=== PATIENT | male | born 1945 | race Caucasian/White ===

== ENCOUNTER 2022-08-10 06:19 | Outpatient (CLI) | payer MEDICARE, SELFPAY | END 2022-08-10 06:20 | disposition home or self-care (01) | PROVIDERS: PCP Family Medicine; Visit Provider Internal Medicine | DX: Z12.11 Encounter for screening for malignant neoplasm of colon (principal); K63.5 Polyp of colon; K57.30 Diverticulosis of large intestine without perforation or abscess without bleeding; Z86.010 Personal history of colon polyps | CPT/HCPCS: 45380; 88305; J2250; J3010 ==

== ENCOUNTER 2022-12-07 08:50 | Outpatient (CLI) | payer MEDICARE, SELFPAY | END 2022-12-07 08:51 | disposition home or self-care (01) | LOC: LAB 08:51 | PROVIDERS: PCP Family Medicine; Visit Provider Orthopaedic Surgery | DX: Z01.818 Encounter for other preprocedural examination (principal) | CPT/HCPCS: 36415; 86850; 86900; 86901 ==

== ENCOUNTER 2022-12-09 06:55 | Day surgery (SDC) | payer MEDICARE, SELFPAY ==
[2022-12-09] VITALS (24 sets, daily range): BP systolic 95–174; BP diastolic 62–91; PULSE 50–89; RESP 14–18; TEMP 35.5–37; O2SAT 91–100; BMI 26.9
[2022-12-09] MEDS: ACETAMINOPHEN 500 MG TABLET 1000 MG PO ×3 (07:32→20:49)
[2022-12-09] MEDS: OXYCODONE (CR) 10 MG TAB.ER.12H PO (07:32)
[2022-12-09] MEDS: CELECOXIB 200 MG CAPSULE PO (07:32)
[2022-12-09] MEDS: LACTATED RINGERS 1000 ML 1,000 ML 100 ML IV ×2 (07:50→10:13)
[2022-12-09] MEDS: SODIUM CHLORIDE 0.9 % (FLUSH) 10 ML SYRINGE IVF (07:55)
--- NOTE | 2022-12-09 08:15 | CRLHL7_ITS ---
For Patients: As a result of the Cures Act, medical imaging exams and procedure reports are released immediately into your electronic medical record. You may view this report before your referring provider. If you have questions, please contact your health care provider. Indication: Hip replacement surgery Technique: AP hip fluoroscopic images. Fluoroscopy time 61.5 seconds. Findings/Impression: Hardware from a left total hip arthroplasty is in satisfactory position. Dictated by Issac Hooper MD @ 12/09/2022 10:47:16 AM (Electronically Signed)
--- NOTE | 2022-12-09 08:27 | SUR.PREOP ---
TIME?OUT:?0828 PT/RN/MDA?VERIFICATION?OF?SURGICAL?SITE,?PROCEDURE,?AND?CONSENT OBTAINED?PRIOR?TO?INVASIVE?PROCEDURE.
[2022-12-09] MEDS: fentaNYL 100 MCG/2 ML inj IVP (08:32)
[2022-12-09] MEDS: MIDAZOLAM HCL 1 MG/ML inj IVP (08:32)
[2022-12-09] MEDS: TRANEXAMIC ACID 100 MG/ML INJ 1000 MG IV (08:55)
[2022-12-09] MEDS: CEFAZOLIN 2 GM INJ IVP (08:55)
--- NOTE | 2022-12-09 10:11 | P.NB_ITS ---
Nerve Block Nerve Block Time Seen by Provider: 08:15 Date Seen: 12/09/22 Type of block requested by surgeon for post-operative analgesia: AMADO/LFCN Side: left Time out performed: Yes Verification of patient name: Yes Verification of date of : Yes Site marking: site marked Name of person performing procedure: Delvis Dye Continuous monitoring Was continuous monitoring of O2 sat, B/P, cardiac rehabilitation program director, recorded every 15 minutes?: Yes Procedure Checklist: sterile prep, needles and gloves Ultrasound guided. Images saved: Yes Medications given in 5ml increments after negative aspiration: Ropivicaine %: 0.5 mL: 25 Needle gauge: 21 Decadron (mg): 10 Precedex (mcg): 25 Patient tolerated procedure well: Yes Additional comments: Injected in 5ml increments after negative aspiration. Block Charges Block Charge (with Pro Fee): Other Periph Nerve Block Use of Ultrasound Machine for Block: Yes- US Guidance/pain block
--- NOTE | 2022-12-09 10:35 | CRLHL7_ITS ---
For Patients: As a result of the Cures Act, medical imaging exams and procedure reports are released immediately into your electronic medical record. You may view this report before your referring provider. If you have questions, please contact your health care provider. Indication: Postop Technique: AP hip centered pelvis and lateral view left hip Findings/Impression: Hardware from a left total hip arthroplasty is in satisfactory position. Bone alignment is normal. No sign of acute fracture. Postop changes are within normal limits. Dictated by Issac Hooper MD @ 12/09/2022 11:58:18 AM (Electronically Signed)
--- NOTE | 2022-12-09 10:39 | P.ORPRC_ITS ---
Procedure Note Date of procedure: 12/09/22 Procedure: PREOPERATIVE DIAGNOSIS: Left hip osteoarthritis POSTOPERATIVE DIAGNOSIS: Left hip osteoarthritis NAME OF OPERATION: Left total hip arthroplasty SURGEON: Dann Ko MD DESKTOP TECHNICIAN: Marie Kelly PA-C, Ana Menendez PA-C IMPLANTS: 1. [employer] [place] # 54 sector ingrowth cup 2. 36 x 54 +4 neutral polyethylene 3. Actis # 6 standard collared ingrowth stem 4. 36 + 1.5 ceramic femoral head ANESTHESIA: General ESTIMATED BLOOD LOSS: 50 cc COMPLICATIONS: None SPECIMENS: None DRAINS: None PREOPERATIVE ANTIBIOTICS: Ancef 2 grams INDICATIONS: The patient is a 77-year-old with a longstanding history of severe, unrelenting left hip pain secondary to end-stage left hip osteoarthritis. Despite appropriate nonoperative management, including activity modification, use of an assist device, anti-inflammatories, [id number] pain medication, physical therapy and injections, they continue to have pain and disability. Operative intervention was offered. The risks, benefits and expected outcomes were discussed in detail. These included but were not limited to: Infection, bleeding, injury to blood vessel or nerve, venous thromboembolism. All questions were answered to their satisfaction. Use of an material assistant was necessary throughout the case for patient positioning and safety, soft tissue retraction and closure. PROCEDURE: The patient was placed supine on the [place] table. General anesthesia was administered. The material assistant made sure the patient was properly positioned. The left hip was prepped and draped in the usual sterile fashion. The image intensifier was brought in for a perfect AP pelvis and a perfect double tear drop AP view of each hip which were used for intraoperative templating with our fluoroscopic guide. An oblique incision was made 3 cm distal and 3 cm lateral to the anterior superi or iliac spine. The material assistant retracted the soft tissues to protect them. Subcutaneous dissection was taken with electrocautery to the superficial fascia. The fascia was divided in line with the incision. Blunt dissection was carried medially to the tensor fascia chapo and sartorius interval. Deep dissection was carried with electrocautery. The circumflex vessels were cauterized and divided. The capsule was exposed and then divided in a T-fashion, tagged with #1 Ethibond sutures. Retractors were placed in the joint, held by the material assistant. The corkscrew was placed in the femoral head. The neck cut was made in the subcapital region. We made a second neck cut more distal. The napkin ring of bone was removed. The femoral head was removed intact. Acetabular retractors were placed, held by the material assistant. The labrum was sharply debrided. The capsule was released. The 43 mm reamer was used to the true medial wall. We then enlarged in 2 mm increments using the image intensifier for our reamer placement. We impacted the cup which had excellent purchase. We placed the polyethylene. Attention was then turned to the proximal femur. The limb was placed in 140 degrees of external rotation, maximum extension and adduction. A significant amount of time was spent releasing the capsule to allow us to deliver the femur into the wound and complete the femoral side safely. Retractors were held by the material assistant throughout the femoral preparation. The box gluer and canal finder were used. Broaches were used to a stable size. The calcar reamer was used. Trial components were placed. The hip was reduced and was found to be stable with appropriate soft tissue tension. Length and offset had been nicely restored using the image intensifier and our fluoroscopic guide. Trial components were removed. The stem was impacted. We placed the femoral head. Again, the hip was reduced and was found to be stable with appropriate soft tissue tension. Length and offset had been nicely restored. The material assistant did a three minute dilute Betadine solution soak. The material assistant irrigated the wound with 3 liters of normal saline via pulse lavage. The material assistant repaired the anterior capsule with a #1 Vicryl and our previously placed Ethibond sutures. The material assistant closed the fascia over the tensor fascia chapo with a #1 PDO Stratafix, subcutaneous tissues with 2-0 Vicryl, skin with a running 3-0 Stratafix and glue. A dry dressing was applied by the material assistant. Sponge and needle counts were correct x 2. The patient tolerated the procedure well; there were no apparent complications. They were awakened and extubated in the operating room, sent to the Post-Anesthesia Care Unit in satisfactory condition. PLAN: 1. The patient will be mobilized with physical therapy, weight-bearing as tolerates 2. Xarelto x 5 days then aspirin x 30 days will be used for DVT prophylaxis 3. The patient will be discharged once medically appropriate
--- NOTE | 2022-12-09 11:30 | W.ANESCHARGE ---
Anesthesia Charges Start Date/Time Anesthesia Start Date: 12/09/22 Anesthesia Start Time: 08:46 Stop Date/Time Anesthesia Stop Date: 12/09/22 Anesthesia Stop Time: 11:30
[2022-12-09] MEDS: HYDROmorphone 0.5 mg/0.5 ml inj IVP (12:49)
[2022-12-09] MEDS: CEFAZOLIN 2 GM in 0.9 % SODIUM CHLORIDE Mini-bag 100 ML IVPB ×2 (14:51→22:41)
[2022-12-09] MEDS: OXYCODONE 5 MG TABLET PO ×2 (14:52→20:49)
[2022-12-09] MEDS: LACTATED RINGERS 1000 ML 1,000 ML 75 ML IV (16:00)
--- NOTE | 2022-12-09 16:07 | PM.IMPN1 ---
Progress Note: A&P Assessment and plan (1) Osteoarthritis of left hip: Status: Acute Assessment and Plan: 1. s/p left left MELODY; pain control; diet; dvt ppx per surgery 2. Hx of htn; hold norvasc and hctz for today 3. Hx of hld; continue statin Plan 1. s/p lefT MELODY Subjective Date Seen: 12/09/22 Interval history: NAME OF OPERATION: Left total hip arthroplasty ANESTHESIA: General ESTIMATED BLOOD LOSS: 50 cc the patient is stable following surgery having some urinary retention denies chest pain and sob denies nausea and vomiting tolerating diet post operative pain controlled Exam Narrative: Exam Narrative: Gen: no acute distress HEENT: NCAT EOMI mmm Neck: Supple CV: RRR normal s1 s2 Lungs: CTAB Abd: Soft,nt, nd Neuro: Alert, oriented, CN grossly intact; nonfocal screening?exam Psych: appropriate affect MSK: age appropriate muscle mass Skin; Warm, dry no rash on face Const: Vital Signs, click to edit/add: Vital Signs - 24 hr 12/09/22 07:36 12/09/22 08:28 12/09/22 08:35 Temperature 98.6 F Pulse Rate 62 61 59 L Pulse Rate [Pulse Oximeter] Respiratory Rate 16 16 16 Blood Pressure 162/91 H 174/91 H 135/74 Blood Pressure [Ri ght Arm] Pulse Oximetry 98 98 99 Oxygen Delivery Me thod Nasal Cannula Nasal Cannula Oxygen Flow Rate 2 2 12/09/22 08:40 12/09/22 11:30 12/09/22 11:35 Temperature 97.2 F L Pulse Rate 57 L 60 63 Pulse Rate [Pulse Oximeter] Respiratory Rate 16 14 14 Blood Pressure 118/77 126/69 126/77 Blood Pressure [Ri ght Arm] Pulse Oximetry 99 100 100 Oxygen Delivery Me thod Nasal Cannula OxyMask OxyMask Oxygen Flow Rate 2 10 10 12/09/22 11:40 12/09/22 11:45 12/09/22 11:50 Temperature Pulse Rate 66 59 L 60 Pulse Rate [Pulse Oximeter] Respiratory Rate 14 14 14 Blood Pressure 136/83 130/74 123/72 Blood Pressure [Ri ght Arm] Pulse Oximetry 100 100 97 Oxygen Delivery Me thod OxyMask OxyMask Room Air Oxygen Flow Rate 10 10 12/09/22 11:55 12/09/22 12:00 12/09/22 12:05 Temperature 97.1 F L Pulse Rate 62 50 L 59 L Pulse Rate [Pulse Oximeter] Respiratory Rate 14 14 14 Blood Pressure 124/73 121/71 122/72 Blood Pressure [Ri ght Arm] Pulse Oximetry 95 94 95 Oxygen Delivery Me thod Room Air Room Air Room Air Oxygen Flow Rate 12/09/22 12:09 12/09/22 12:15 Temperature 96 F L 96.1 F L Pulse Rate 56 L Pulse Rate [Pulse Oximeter] 56 L Respiratory Rate 14 14 Blood Pressure Blood Pressure [Ri ght Arm] 124/85 131/75 Pulse Oximetry 98 Oxygen Delivery Me thod Room Air Room Air Oxygen Flow Rate
--- NOTE | 2022-12-09 17:06 | PC.NURSE ---
Addendum entered by Patricia Sandhu RN 12/09/22 18:34: Patient has only voided x1 50cc since surgery, bladder scan done showed 152cc, PRN bolus started now. Original Note: Shift Summary: Patient pleasant and cooperative. Up with one assist, walker and gait belt. Pain managed with PRN oxycodone. Vitals stable and WNL. Has yet to void, continues to have LR @ 75cc/hr. Tolerating regular diet, denies nausea. Dressing over left hip C/D/I. Lung sounds clear.
[2022-12-09] MEDS: 0.9 % SODIUM CHLORIDE 500 ML IV (18:30)
[2022-12-09] MEDS: SENNOSIDES 1 TAB TABLET 2 TAB PO (20:49)
--- NOTE | 2022-12-09 22:18 | PC.NURSE ---
End of shift nursing note, care provided from [id number]: Pt alert and oriented, pleasant and cooperative. Vitals stable, afebrile. Pt pain 0-2/10 this shift, PRN Oxycodone 5mg admin and scheduled Tylenol. Pt up to void a couple times, 350ml output. Pt ambulated in hallway w/ Ax1 w/ walker and gaitbelt. CMS intact. New ice pack applied at bedtime. Pt saline locked after able to void, tolerating PO intake. Pt using IS. Pt has call light within reach and able to use appropriately.
[2022-12-10] MEDS: ACETAMINOPHEN 500 MG TABLET 1000 MG PO ×2 (01:39→08:38)
[2022-12-10 03:20] VITALS: BP 138/76; PULSE 89; RESP 18; TEMP 36.8; O2SAT 96
[2022-12-10 06:50] LABS: Hematocrit 38.9 % (37.0-53.0); Immature Granulocytes Pct Auto 0.3 %; Lymphocytes Percent Auto 3.2 % (20-44); Mean Corpuscular HGB Conc 33 gm/dL (32-36); Mean Corpuscular Hemoglobin 29 pg (26-34); Mean Corpuscular Volume 86 fL (80-100); Monocytes Percent Auto 7.1 % (0.0-11.0); Neutrophils Percent Auto 89.4 % (42.0-72.0); Platelet Count* 226 K/uL (140-440); RDW Coefficient of Variation % 12.3 % (11.5-15.5); Red Blood Count 4.55 m/uL (4.30-5.90); White Blood Count* 16.13 K/uL (4.50-11.00)
[2022-12-10 06:54] LABS: Slide Review Reflex No
--- NOTE | 2022-12-10 07:03 | PC.NURSE ---
Pt alert and oriented x3. Afebrile. Pt reports 2-3/10 pain in left?hip, pain managed with?scheduled medications. Pt denies chest pain, SOB, and N/V. Pt was up to the bathroom x 7 voiding around 100 ml each time, bladder scan was done pt had 408 ml and got up and had another 250 ml out. Pt is up SBA with walker and gait belt. Pt is tolerating a regular diet and saline locked. Pt slept intermittently throughout most of night.?
[2022-12-10 07:05] LABS: Potassium* 3.8 mmol/L (3.6-5.1); Sodium* 134 mmol/L (135-149)
[2022-12-10 07:08] LABS: Blood Urea Nitrogen* 25 mg/dL (7-30); Creatinine* 1.1 mg/dL (0.5-1.5); Est. Creatinine Clearance* 58.02; Estimated Glomerular Filt Rate 70 ml/min
[2022-12-10 08:13] VITALS: BP 133/83; PULSE 95; RESP 18; TEMP 36.8; O2SAT 97
[2022-12-10] MEDS: SENNOSIDES 1 TAB TABLET 2 TAB PO (08:37)
[2022-12-10] MEDS: RIVAROXABAN 10 MG TABLET PO (08:38)
[2022-12-10] MEDS: OXYCODONE 5 MG TABLET PO (08:45)
--- NOTE | 2022-12-10 10:23 | PC.SOCIAL ---
Discharge : Met with patient, River and , Elisa. River will return home with Elisa assisting with help. They also have a daughter who is willing to help if needed. Couple has contact information for social work and will call for any additional questions or needs.
--- NOTE | 2022-12-10 10:26 | P.ORPN_ITS ---
Subjective Subjective Time Seen by Provider: 08:25 Date Seen: 12/10/22 Principal diagnosis: Day 1 s/p left MELODY Interval history: Brandon is doing well and resting comfortably in his recliner, accompanied by his Elisa. Denies pain currently. Reports he has a high pain tolerance. Denies: fever, chills, chest pain, SOB. Denies bowel movement since surgery and reports no flatulence yet. Patient had difficulty urinating overnight, which improved over the morning, but continues to struggle with frequent urination and incomplete voiding. He denies having these problems prior to surgery. Brandon also asked if he may take Viagra in addition to his postop discharge medications. Patient picked up his discharge medications last week. He is unable to swallow tablets/capsules. Medications were sent in liquid form. Ortho Exam Narrative Exam Narrative: Incision/Dressing: Dressing appears clean and dry. No drainage present. Mepilex intact. Left MELODY appears moderately swollen but supple with no obvious erythema, fluctuance or excessive warmth. No ecchymosis or erythematous streaking. Warmth around the wound is appropriate. Ice is being utilized as needed. CMS: Intact distally with 2+ Dorsalis pedis and Posterior Tibial pulses. 5/5 motor strength dorsal and plantar flexion. Confirmed sensation distally. Intact straight leg raise. Calf: Bilateral calves are supple, with no swelling, pain, tenderness, erythema, discoloration or coolness to the touch. Constitutional: Patient is alert and oriented x3. Patient is in no acute distress and converses without labored breathing. Patient is able to make decisions and demonstrates good insight. Patient is pleasant and cooperative. Affect is full range and appropriate for the circumstances. Const Vital Signs, click to edit/add: Vital Signs - 24 hr 12/09/22 11:30 12/09/22 11:35 12/09/22 11:40 Temperature 97.2 F L Pulse Rate 60 63 66 Pulse Rate [Pulse Oximeter] Respiratory Rate 14 14 14 Blood Pressure 126/69 126/77 136/83 Blood Pressure [Left Arm] Blood Pressure [Right Arm] Pulse Oximetry 100 100 100 Oxygen Delivery Method OxyMask OxyMask OxyMask Oxygen Flow Rate 10 10 10 12/09/22 11:45 12/09/22 11:50 12/09/22 11:55 Temperature Pulse Rate 59 L 60 62 Pulse Rate [Pulse Oximeter] Respiratory Rate 14 14 14 Blood Pressure 130/74 123/72 124/73 Blood Pressure [Left Arm] Blood Pressure [Right Arm] Pulse Oximetry 100 97 95 Oxygen Delivery Method OxyMask Room Air Room Air Oxygen Flow Rate 10 12/09/22 12:00 12/09/22 12:05 12/09/22 12:09 Temperature 97.1 F L 96 F L Pulse Rate 50 L 59 L 56 L Pulse Rate [Pulse Oximeter] Respiratory Rate 14 14 14 Blood Pressure 121/71 122/72 Blood Pressure [Left Arm] Blood Pressure [Right Arm] 124/85 Pulse Oximetry 94 95 Oxygen Delivery Method Room Air Room Air Room Air Oxygen Flow Rate 12/09/22 12:15 12/09/22 12:30 12/09/22 12:45 Temperature 96.1 F L 96.1 F L 96.2 F L Pulse Rate Pulse Rate [Pulse Oximeter] 56 L 55 L 55 L Respiratory Rate 14 14 16 Blood Pressure Blood Pressure [Left Arm] Blood Pressure [Right Arm] 131/75 131/73 122/76 Pulse Oximetry 98 96 98 Oxygen Delivery Method Room Air Room Air Room Air Oxygen Flow Rate 12/09/22 13:00 12/09/22 13:30 12/09/22 14:00 Temperature 96.2 F L 96.2 F L 97.2 F L Pulse Rate Pulse Rate [Pulse Oximeter] 55 L 50 L 62 Respiratory Rate 16 16 18 Blood Pressure Blood Pressure [Left Arm] Blood Pressure [Right Arm] 121/85 112/74 111/62 Pulse Oximetry 95 91 96 Oxygen Delivery Method Room Air Room Air Room Air Oxygen Flow Rate 12/09/22 15:00 12/09/22 16:00 12/09/22 17:00 Temperature 96.8 F L 96.8 F L 97.5 F L Pulse Rate Pulse Rate [Pulse Oximeter] 52 L 56 L 64 Respiratory Rate 18 18 18 Blood Pressure Blood Pressure [Left Arm] Blood Pressure [Right Arm] 95/73 123/81 132/75 Pulse Oximetry 97 92 96 Oxygen Delivery Method Room Air Room Air Room Air Oxygen Flow Rate 12/09/22 19:00 12/09/22 23:55 12/09/22 23:55 Temperature 98.4 F 98.5 F Pulse Rate Pulse Rate [Pulse Oximeter] 87 89 89 Respiratory Rate 16 16 16 Blood Pressure Blood Pressure [Left Arm] 131/80 Blood Pressure [Right Arm] 157/77 H Pulse Oximetry 96 99 Oxygen Delivery Method Room Air Room Air Oxygen Flow Rate 12/10/22 03:20 12/10/22 08:13 Temperature 98.2 F 98.3 F Pulse Rate Pulse Rate [Pulse Oximeter] 89 95 Respiratory Rate 18 18 Blood Pressure Blood Pressure [Left Arm] 133/83 Blood Pressure [Right Arm] 138/76 Pulse Oximetry 96 97 Oxygen Delivery Method Room Air Room Air Oxygen Flow Rate Documenting provider has reviewed patient's vital signs: yes Assessment and Plan Assessment and plan (1) Osteoarthritis of left hip: Problem details: day 1 s/p left MELODY Status: Acute Assessment and Plan: - Complete 23 hour perioperative antibiotics. - PT/OT consults for education and assistance. - Weight bear as tolerated with a walker for assistance. - Prescribed analgesics as needed. Patient is content with current narcotic m edications. Minimize narcotic pain medication use; wean off and discontinue as soon as possible. - DVT prophylaxis Xarelto x 5 days followed by aspirin 81 mg BID x 30 days. Also bilateral knee high Joseph stockings (x 1 month), frequent ambulation and ankle pumps when sedentary. - In regards to urinary frequency and incomplete voiding, I'd like Brandon to discuss this further with our Hospitalist. - Do not Viagra while taking Oxycodone. This combination may increase risk of hypotension. - Social consult for discharge planning. - Anticipate patient will be discharged to home this afternoon if the patient remains medically stable, pain is controlled and is safe with ambulation. - Return to clinic in 1 week for a wound check. Mepilex dressing will be removed at this appointment. Remove sooner if dressing becomes saturated. - Return to clinic in [address] Ko. - Phone Orthopedics with any questions or concerns. [phone]
--- NOTE | 2022-12-10 11:25 | P.DS_ITS ---
DS: Providers Provider Time Seen by Provider: 09:45 Date Seen: 12/10/22 Primary care physician: Issac Mcnally MD Consults: 12/09/22 12:21 Consult to Occupational Therapy [CONS] Routine Comment: Reason(s) for OT Consult:: ADLs Prior to Discharge Any Restrictions?:: No Restrictions Comment: Consult to Physical Therapy [CONS] Routine Comment: Ambulate in the sol today Reason(s) for PT Consult:: Evaluate and Treat Any Restrictions?:: No Restrictions Comment: Nursing Activity Consult to Physician [CONS] Routine Comment: Consulting Provider: Hospitalists Has provider been notified: No Consult to Health Care Technician [CONS] Routine Comment: Reason for Consult:: Discharge Planning Needs Attending Physician on discharge: Dann Ko MD Date of Discharge: 12/10/22 DS: Diagnosis Discharge Diagnosis (1) Osteoarthritis of left hip: Status: Acute Problem details: s/p left MELODY 12/09/22 (2) Urinary retention: Status: Acute (3) BPH associated with nocturia: Status: Suspected Problem details: - post op urinary retention - trial of flomax, but patient refuses to swallow pills (4) Hyperlipidemia: Status: Chronic (5) Hypertension: Status: Chronic DS: Summary Hospital Course Hospital Course: 77-year-old male who underwent an elective left total hip arthroplasty for severe osteoarthritis. Postoperative course is remarkable only for urinary retention. Patient does have a history of nocturia over the last few years. He denies any previous diagnosis of BPH. Straight cath produced 800 mL of urine. Shared decision making with the patient and his led to starting Flomax, however patient states that he is unable to take pills and there is no liquid formulation of Flomax, and patient refused to take/was unable to take Flomax pill. He is discharged home in stable condition. Time Spent with Patient Time attestation: Total time spent providing and/or coordinating discharge services: Exam Narrative: Exam Narrative: General: No acute distress. Awake, alert, oriented x3. No pallor. No jaundice. Oropharynx: Clear. Mucous membranes moist. Cardiovascular: Regular rate and rhythm. No murmurs, gallops, or rubs. Respiratory: Clear to auscultation bilaterally. No wheezes or crackles. Abdomen: Bowel sounds present. Soft, nondistended, nontender. Extremities: Left hip bandage is clean, dry, and intact. No pedal edema. Const: Vital Signs, click to edit/add: Vital Signs - 24 hr 12/09/22 11:30 12/09/22 11:35 12/09/22 11:40 Temperature 97.2 F L Pulse Rate 60 63 66 Pulse Rate [Pulse Oximeter] Respiratory Rate 14 14 14 Blood Pressure 126/69 126/77 136/83 Blood Pressure [Le ft Arm] Blood Pressure [Ri ght Arm] Pulse Oximetry 100 100 100 Oxygen Delivery Me thod OxyMask OxyMask OxyMask Oxygen Flow Rate 10 10 10 12/09/22 11:45 12/09/22 11:50 12/09/22 11:55 Temperature Pulse Rate 59 L 60 62 Pulse Rate [Pulse Oximeter] Respiratory Rate 14 14 14 Blood Pressure 130/74 123/72 124/73 Blood Pressure [Le ft Arm] Blood Pressure [Ri ght Arm] Pulse Oximetry 100 97 95 Oxygen Delivery Me thod OxyMask Room Air Room Air Oxygen Flow Rate 10 12/09/22 12:00 12/09/22 12:05 12/09/22 12:09 Temperature 97.1 F L 96 F L Pulse Rate 50 L 59 L 56 L Pulse Rate [Pulse Oximeter] Respiratory Rate 14 14 14 Blood Pressure 121/71 122/72 Blood Pressure [Le ft Arm] Blood Pressure [Ri ght Arm] 124/85 Pulse Oximetry 94 95 Oxygen Delivery Me thod Room Air Room Air Room Air Oxygen Flow Rate 12/09/22 12:15 12/09/22 12:30 12/09/22 12:45 Temperature 96.1 F L 96.1 F L 96.2 F L Pulse Rate Pulse Rate [Pulse Oximeter] 56 L 55 L 55 L Respiratory Rate 14 14 16 Blood Pressure Blood Pressure [Le ft Arm] Blood Pressure [Ri ght Arm] 131/75 131/73 122/76 Pulse Oximetry 98 96 98 Oxygen Delivery Me thod Room Air Room Air Room Air Oxygen Flow Rate 12/09/22 13:00 12/09/22 13:30 12/09/22 14:00 Temperature 96.2 F L 96.2 F L 97.2 F L Pulse Rate Pulse Rate [Pulse Oximeter] 55 L 50 L 62 Respiratory Rate 16 16 18 Blood Pressure Blood Pressure [Le ft Arm] Blood Pressure [Ri ght Arm] 121/85 112/74 111/62 Pulse Oximetry 95 91 96 Oxygen Delivery Me thod Room Air Room Air Room Air Oxygen Flow Rate 12/09/22 15:00 12/09/22 16:00 12/09/22 17:00 Temperature 96.8 F L 96.8 F L 97.5 F L Pulse Rate Pulse Rate [Pulse Oximeter] 52 L 56 L 64 Respiratory Rate 18 18 18 Blood Pressure Blood Pressure [Le ft Arm] Blood Pressure [Ri ght Arm] 95/73 123/81 132/75 Pulse Oximetry 97 92 96 Oxygen Delivery Me thod Room Air Room Air Room Air Oxygen Flow Rate 12/09/22 19:00 12/09/22 23:55 12/09/22 23:55 Temperature 98.4 F 98.5 F Pulse Rate Pulse Rate [Pulse Oximeter] 87 89 89 Respiratory Rate 16 16 16 Blood Pressure Blood Pressure [Le ft Arm] 131/80 Blood Pressure [Ri ght Arm] 157/77 H Pulse Oximetry 96 99 Oxygen Delivery Me thod Room Air Room Air Oxygen Flow Rate 12/10/22 03:20 12/10/22 08:13 Temperature 98.2 F 98.3 F Pulse Rate Pulse Rate [Pulse Oximeter] 89 95 Respiratory Rate 18 18 Blood Pressure Blood Pressure [Le ft Arm] 133/83 Blood Pressure [Ri ght Arm] 138/76 Pulse Oximetry 96 97 Oxygen Delivery Me thod Room Air Room Air Oxygen Flow Rate DS: Data Data Completed and Pending Completed studies during hospitalization: Ordering Physician: Dann Ko M.D. Date of Service: 12/09/22 Procedure(s): XR hip LT post op Accession Number(s): [id number] cc: Issac Mcnally M.D.; Dann Ko M.D.~ For Patients: As a result of the Century Cures Act, medical imaging exams and procedure reports are released immediately into your electronic medical record. You may view this report before your referring provider. If you have questions, please contact your health care provider. Indication: Postop Technique: AP hip centered pelvis and lateral view left hip Findings/Impression: Hardware from a left total hip arthroplasty is in satisfactory position. Bone alignment is normal. No sign of acute fracture. Postop changes are within normal limits. Dictated by Issac Hooper MD @ 12/09/2022 11:58:18 AM (Electronically Signed) Labs on day of discharge: Labs from last 24 hours 12/10/22 06:02 WBC 16.13 H RBC 4.55 Hgb 13.0 L Hct 38.9 MCV 86 MCH 29 MCHC 33 RDW Coeff of Lulu 12.3 Plt Count 226 Neut % (Auto) 89.4 H Lymph % (Auto) 3.2 L [place] % (Auto) 7.1 Eos % (Auto) 0.0 Baso % (Auto) 0.0 Neut # (Auto) 14.40 H Lymph # (Auto) 0.50 L [place] # (Auto) 1.10 H Eos # (Auto) 0.00 Baso # (Auto) 0.00 Abs Immat Gran (auto) 0.00 Imm/Tot Granulo (auto) 0.3 Sodium 134 L Potassium 3.8 BUN 25 Creatinine 1.1 Estimated Creat Clear 58.02 Estimated GFR 70 Discharge Plan Discharge Disposition: Home, Self-Care Discharging Surgeon: Dann Ko Follow-Up Appointment: One week Prescriptions: Continued simvastatin 20 mg tablet 20 mg PO DAILY hydrochlorothiazide 12.5 mg tablet 12.5 mg PO DAILY amlodipine 2.5 mg tablet 2.5 mg PO DAILY cholecalciferol (vitamin D3) [Vitamin D3] 50 mcg (2,000 unit) capsule 50 mcg PO DAILY clotrimazole [Antifungal (clotrimazole)] 1 % cream 1 applic topical BID sennosides [OneLax Senna] 8.8 mg/5 mL syrup 5 ml PO BID PRN (Reason: constipation) Qty: 236 0RF oxycodone 5 mg/5 mL solution 5 mg PO Q6H PRN (Reason: pain) Qty: 200 0RF Xarelto 10 mg tablet 10 mg PO QDAY Qty: 4 0RF Rx Instructions: take this daily for 4 days, then aspirin 81 mg twice daily for 30 days. aspirin 81 mg tablet,chewable 81 mg PO BID Qty: 60 0RF Rx Instructions: Start this medication after you have finished 4 days of Xarelto Activity Level: Activity as Tolerated and No strenuous activity Activity Detail: Keep dressing on for 1 week. Dressing is waterproof. May shower. Surgical glue covers the wound. Attend outpatient physical therapy if scheduled. Ice and elevate operative extremity without restriction. Wear compression stockings for 1 month post surgery. May remove for 1 hour per day. Ambulate every hour throughout the day. If you drive, Do not drive while taking narcotic pain medication. Do not drink alcohol while taking narcotic pain medication. May drive when safe to do so and have full function of the extremities, this may take 6 weeks or more. Notify Orthopedics with any questions or concerns. ([phone]) Discharge Diet: Regular Patient Instructions: Aspirin (By mouth), Oxycodone, Rapid Release (By mouth), Rivaroxaban (By mouth), Surgical Site Infections (DC), Total Hip Replacement (DC) Forms: Work/School Release Follow-up: Ana Menendez PA-C [Physician Offset Plate Preparation Supervisor] - Marie Manning PA-C [Physician Offset Plate Preparation Supervisor] - 12/15/22 9:00 am ([facility] for follow-up.) Issac Mcnally MD [Primary Care Provider] - (follow up as needed for urinary symptoms/retention) Discharge Orders: Discharge Order (Routine); Ordered 12/10/22 Ordered By: Viridiana Campbell Consulting provider completed their portion of the discharge: Yes
[2022-12-10 12:00] VITALS: BP 134/77; PULSE 86; RESP 18; TEMP 36.9; O2SAT 98
[2022-12-10 13:37] VITALS: BP 122/72; PULSE 56; RESP 18; TEMP 36.9
[2022-12-10 14:13] VITALS: BP 122/72; PULSE 56; RESP 18; TEMP 36.9
--- NOTE | 2022-12-10 14:34 | PC.NURSE ---
Discharge: Patient up with SBA walker and gait belt. Vitals stable and WNL. Voiding small frequent amounts throughout shift, straight cath done with 800cc out, patient able to void again after straight cath. Pain well controlled with ice and PRN medication. Dressing over hip dry and intact.
== END 2022-12-10 14:04 | disposition home or self-care (01) ==
LOC: OR 06:55 → MEDSURG 08:41
PROVIDERS: PCP Family Medicine; Visit Provider Orthopaedic Surgery
PROC: (CPT 27130; principal; 2022-12-09 08:15)
DX: M16.12 Unilateral primary osteoarthritis, left hip (principal); G89.18 Other acute postprocedural pain; I10 Essential (primary) hypertension; R33.8 Other retention of urine; N40.1 Benign prostatic hyperplasia with lower urinary tract symptoms; R35.1 Nocturia; E78.5 Hyperlipidemia, unspecified
CPT/HCPCS: 27130; 01214; 36415; 51702; 51798; 64450; 73501; 76000; 76942; 82565; 84132; 84295; 84520; 85025; 97110; 97116; 97161; 97165; 97535; 99211; A9270; C1776; J0330; J0690; J1100; J1170; J2250; J2405; J2704; J2710; J2795; J3010; J7120

== ENCOUNTER 2022-12-11 12:02 | Emergency (ER) | payer MEDICARE, SELFPAY ==
[2022-12-11 12:09] VITALS: BP 170/92; PULSE 96; RESP 18; TEMP 36.3; O2SAT 99; BMI 26.9
--- NOTE | 2022-12-11 12:16 | ED_ITS ---
HPI - Male Genitourinary General Time Seen by Provider: 12:16 Date Seen: 12/11/22 Chief complaint: Urogenital Problems, Male Stated complaint: Urinary problems post op Time Seen by Provider: 12/11/22 12:04 Source: patient and RN notes reviewed Mode of arrival: ambulatory Limitations: no limitations History of Present Illness HPI Narrative: Patient is a 77-year-old male coming in with increasing lower abdominal pressure and concern for urinary retention. Patient had a left total hip arthroplasty this week, was having issues with urinary retention in the hospital. At time of discharge he did not want catheterization, cannot take pills. Unfortunately, Flomax is not able to be crushed in does not come in liquid form per pharmacy. Patient denies any nausea vomiting, no fevers or chills. No concerns as far as his hip surgery. Ana chamberlain orthopedic PA did kindly call and make us aware that this patient was coming, gave some background history. Related Data Home Medications Medication Instructions Recorded Confirmed amlodipine 2.5 mg tablet 2.5 mg PO DAILY 10/13/22 12/09/22 cholecalciferol (vitamin D3) 50 50 mcg PO DAILY 10/13/22 12/09/22 mcg (2,000 unit) capsule (Vitamin D3) hydrochlorothiazide 12.5 mg tablet 12.5 mg PO DAILY 10/13/22 12/09/22 simvastatin 20 mg tablet 20 mg PO DAILY 10/13/22 12/09/22 clotrimazole 1 % topical cream 1 applic topical BID 11/24/22 12/08/22 (Antifungal (clotrimazole)) Previous Rx's Medication Instructions Recorded aspirin 81 mg chewable tablet 81 mg PO BID #60 tabs 12/01/22 oxycodone 5 mg/5 mL oral solution 5 mg (5 mL) PO Q6H PRN pain #200 mL 12/01/22 rivaroxaban 10 mg tablet (Xarelto) 10 mg PO QDAY #4 tabs 12/01/22 sennosides 8.8 mg/5 mL oral syrup 5 ml PO BID PRN constipation #236 12/01/22 (OneLax Senna) mL Allergies Allergy/AdvReac Type Severity Reaction Status Date / Time No Known Drug Allergies Allergy Verified 12/09/22 07:22 Review of Systems Narrative: As per HPI PFSH PFS Medical History Tubular adenoma of colon ?D12.6 - Benign neoplasm of colon, unspecified (ICD-10) Hypertension ?I10 - Essential (primary) hypertension (ICD-10) Hyperlipidemia (03/07/13) ?E78.5 - Hyperlipidemia, unspecified (ICD-10) Compression fracture of thoracic vertebra ?S22.000A - Wedge compression fracture of unspecified thoracic vertebra, initial encounter for closed fracture (ICD-10) Calculus of kidney ?N20.0 - Calculus of kidney (ICD-10) Surgical History History of hernia repair (03/07/13) ?Z98.890 - Other specified postprocedural states (ICD-10) ?Z87.19 - Personal history of other diseases of the digestive system (ICD-10) H/O hemorrhoidectomy ?Z98.890 - Other specified postprocedural states (ICD-10) Hx of appendectomy ?Z90.49 - Acquired absence of other specified parts of digestive tract (ICD- 10) S/P arthroscopy of right shoulder (05/25/13) ?Z98.890 - Other specified postprocedural states (ICD-10) Family History Father High blood pressure Mother High blood pressure Social History What is your current living situation?: I presently have a place to live Problems where you live: no known problems In the past 12 months, utilities in danger of being shut off: no In the past 12 mos, have been you worried that your food would run out before you had money to buy more?: never true In the past 12 mos, the food you bought just didn't last and you didn't have money to buy more?: never true Smoking Status: Never smoker Do you use any of these nicotine containing products: None Second hand tobacco smoke exposure: No How often do you have a drink containing alcohol: 2-3 times a week Alcohol type: beer, wine and hard liquor How many standard drinks containing alcohol do you have on a typical day: 1 or 2 AUDIT-C Alcohol total score: 3 Non-prescribed substance use: denies use Caffeine: No How often does anyone, including family, friends and others, physically hurt you : How often does anyone, including family, friends and others, insult or talk down to you: How often does anyone, including family, friends and others, threaten you with harm: How often does anyone, including family, friends and others, scream or curse at you: Little interest or pleasure in doing things: not at all Feeling down, depressed, or hopeless: not at all service: Yes ([employer]) Exam Const: Vital Signs, click to edit/add: Vital Signs - 24 hr 12/11/22 12:09 Temperature 97.4 F L Pulse Rate [Right Pulse Oximeter] 96 Respiratory Rate 18 Blood Pressure [Ri ght Upper Arm] 170/92 H Pulse Oximetry 99 Oxygen Delivery Me thod Room Air 77-year-old male is alert, interactive, no apparent distress. Abdomen is soft, bladder does seem distended and he has suprapubic tenderness. On percussion, seems like there is bladder enlargement. He has no rebound or guarding, does not have any evidence of a surgical abdomen. Lungs clear, CV regular rate and rhythm, no murmur. Bladder scan was done when I was in there and is showing urinary retention. Documenting provider has reviewed patient's vital signs: yes Course Course Hospital Course: We will place a [place], will give patient Uro jet for comfort. Have reviewed with him it is likely that he is going to need to leave a [place] catheter in at this time. We will see how much urine initially comes out. Reevaluation(s) Time of Reevaluation #1: 13:57 Reevaluation #1: Had over 850 mL drain initially, catheter will be left in, patient will be discharged to home for outpatient follow-up. Vital Signs Vital signs: Initial Vital Signs Temperature 97.4 F L 12/11/22 12:09 Temperature Source Temporal Artery Scan 12/11/22 12:09 Pulse Rate 96 12/11/22 12:09 Respiratory Rate 18 12/11/22 12:09 Blood Pressure 170/92 H 12/11/22 12:09 Blood Pressure Mean 118 H 12/11/22 12:09 Blood Pressure Position Sitting 12/11/22 12:09 Pulse Oximetry 99 12/11/22 12:09 Oxygen Delivery Method Room Air 12/11/22 12:09 Vital Signs Temperature 97.4 F L 12/11/22 12:09 Pulse Rate 96 12/11/22 12:09 Respiratory Rate 18 12/11/22 12:09 Blood Pressure 170/92 H 12/11/22 12:09 Pulse Oximetry 99 12/11/22 12:09 Oxygen Delivery Method Room Air 12/11/22 12:09 Temperature 97.4 F L 12/11/22 12:09 Pulse Rate 96 12/11/22 12:09 Respiratory Rate 18 12/11/22 12:09 Blood Pressure 170/92 H 12/11/22 12:09 Pulse Oximetry 99 12/11/22 12:09 Oxygen Delivery Method Room Air 12/11/22 12:09 MDM - Male Genitourinary Lab Data Attestation: I reviewed the patient's lab results. Labs: Lab Results 12/11/22 Range/Units 12:30 Urine Color Yellow (Yellow) Urine Appearance Clear (Clear) Urine pH 5.5 (5.0-8.5) Ur Specific [place] 1.015 (1.000-1.030) Urine Protein Negative (Negative) Urine Glucose (UA) Negative (Negative) Urine Ketones Negative (Negative) Urine Blood 2+ A (Negative) Urine Nitrite Negative (Negative) Urine Bilirubin Negative (Negative) Urine Urobilinogen 0.2 (0.2-1.0) Ur Leukocyte Esterase Negative (Negative) Urine RBC 2-5 A (0-2) Urine WBC 0-2 (0-5) Ur Squamous Epith Cells None (None-Few) Urine Bacteria None (None) Critical Care Time Critical Care Time Critical Care Time: No Discharge Plan Discharge Clinical Impression: Acute urinary retention Patient Disposition: Home, Self-Care Condition: Stable Instructions: Urinary Retention in Men (ED), [place] Catheter Placement and Care (ED) Additional Instructions: Need to schedule follow-up in clinic with primary provider this next week. They will need to refer you to urology. Can work with your primary care provider or urologist to see if there are other medicines that can be used. And her stand that there is no liquid form of Flomax and that is not crushable. Activity Detail: Follow-up postoperative hip instructions from your surgeon. Prescriptions: No Action simvastatin 20 mg tablet 20 mg PO DAILY hydrochlorothiazide 12.5 mg tablet 12.5 mg PO DAILY amlodipine 2.5 mg tablet 2.5 mg PO DAILY cholecalciferol (vitamin D3) [Vitamin D3] 50 mcg (2,000 unit) capsule 50 mcg PO DAILY clotrimazole [Antifungal (clotrimazole)] 1 % cream 1 applic topical BID sennosides [OneLax Senna] 8.8 mg/5 mL syrup 5 ml PO BID PRN (Reason: constipation) Qty: 236 0RF oxycodone 5 mg/5 mL solution 5 mg PO Q6H PRN (Reason: pain) Qty: 200 0RF Xarelto 10 mg tablet 10 mg PO QDAY Qty: 4 0RF Rx Instructions: take this daily for 4 days, then aspirin 81 mg twice daily for 30 days. aspirin 81 mg tablet,chewable 81 mg PO BID Qty: 60 0RF Rx Instructions: Start this medication after you have finished 4 days of Xarelto Follow Up/Referrals: Issac Mcnally MD [Primary Care Provider] - Stand Alone [facility]
[2022-12-11] MEDS: lidocaine HCL 2 % JELLY (TOP) STERILE 6 ML UR (12:30)
[2022-12-11 13:00] LABS: Appearance Urine Clear (Clear); Bilirubin Urine Negative (Negative); Blood Urine 2+ (Negative); Color Urine Yellow (Yellow); Glucose Urine Negative (Negative); Ketones Urine Negative (Negative); Leukocyte Esterase Urine Negative (Negative); Nitrite Urine Negative (Negative); Protein Urine Negative (Negative); Specific Gravity Urine 1.015 (1.000-1.030); Urobilinogen Urine 0.2 (0.2-1.0); pH Urine 5.5 (5.0-8.5)
--- NOTE | 2022-12-11 13:06 | ED.NURSE ---
Catheter bag emptied, approx ~850mLs urine.
[2022-12-11 13:26] LABS: WBC Urine 0-2 (0-5)
--- NOTE | 2022-12-11 14:24 | ED.NURSE ---
Catheter leg bag attached at patient request. Additional ~250mLs drained from first catheter bag.
[2022-12-11 14:29] VITALS: BP 140/87; PULSE 83; O2SAT 96
== END 2022-12-11 14:34 | disposition home or self-care (01) ==
LOC: ED 14:03
PROVIDERS: Emergency Provider Family Medicine; PCP Family Medicine
DX: R33.9 Retention of urine, unspecified (principal)
CPT/HCPCS: 51702; 51798; 81001; 99283; 99284

== ENCOUNTER 2022-12-21 01:36 | Emergency (ER) | payer MEDICARE, SELFPAY ==
[2022-12-21 01:46] VITALS: BP 183/104; PULSE 79; RESP 16; TEMP 36.7; O2SAT 98; BMI 27.3
--- NOTE | 2022-12-21 02:04 | ED_ITS ---
HPI - General Adult General Chief complaint: Unspecified Complaint, Adult Stated complaint: cannot empty bladder Time Seen by Provider: 12/21/22 01:38 Source: patient Mode of arrival: ambulatory Limitations: no limitations History of Present Illness HPI narrative: 77-year-old male with a notable history of recent urinary retention presents the emergency department for evaluation of suprapubic discomfort. Symptoms have been present all evening. Patient underwent surgery a few weeks ago and his immediate postop course was complicated by acute urinary retention, catheter was placed and subsequently removed. He again developed urinary retention shortly after and a new catheter was placed. He was prescribed Flomax, cannot tolerate it due to the size of the capsule. He reports that he is physically unable to swallow it but is taking finasteride. He has not yet seen Urology. He had his catheter removed yesterday and has voided a couple of times since but has been unable to void this evening. No blood, no fevers. He does take a low-dose aspirin for DVT prophylaxis postoperatively. No trauma or injury. No GI changes, no other new medications that would cause acute urinary retention like allergy medications, especially Benadryl, antidepressants, etc.. He has no other acute concerns today. Nursing team bladder scan for over 400 mL, [place] is reinserted. I examined him after the procedure and he reports he is already feeling much better. Past medical history notable for hypertension and hyperlipidemia, well controlled. Denies any other long-term health problems. Medications reviewed. Nonsmoker. ROS notable for the urinary symptoms as above. Otherwise negative for other skin, GI, generalized, other urinary or neurological changes. Related Data Home Medications Medication Instructions Recorded Confirmed amlodipine 2.5 mg tablet 2.5 mg PO DAILY 10/13/22 12/21/22 cholecalciferol (vitamin D3) 50 50 mcg PO DAILY 10/13/22 12/21/22 mcg (2,000 unit) capsule (Vitamin D3) hydrochlorothiazide 12.5 mg tablet 12.5 mg PO DAILY 10/13/22 12/21/22 simvastatin 20 mg tablet 20 mg PO DAILY 10/13/22 12/21/22 tylenol suspension See Rx Instructions .Route .COMPLEX 12/13/22 12/20/22 aspirin 81 mg tablet,delayed 162 mg PO QDAY 12/20/22 12/21/22 release Previous Rx's Medication Instructions Recorded finasteride 5 mg tablet 5 mg PO QDAY #14 tabs 12/13/22 tamsulosin 0.4 mg capsule 0.4 mg PO QHS #90 caps 12/21/22 Allergies Allergy/AdvReac Type Severity Reaction Status Date / Time No Known Drug Allergies Allergy Verified 12/20/22 10:44 [facility] Medical History Tubular adenoma of colon ?D12.6 - Benign neoplasm of colon, unspecified (ICD-10) Hypertension ?I10 - Essential (primary) hypertension (ICD-10) Hyperlipidemia (03/07/13) ?E78.5 - Hyperlipidemia, unspecified (ICD-10) Compression fracture of thoracic vertebra ?S22.000A - Wedge compression fracture of unspecified thoracic vertebra, initial encounter for closed fracture (ICD-10) Calculus of kidney ?N20.0 - Calculus of kidney (ICD-10) Surgical History 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) ?Z96.642 - Presence of left artificial hip joint (ICD-10) History of hernia repair (03/07/13) ?Z98.890 - Other specified postprocedural states (ICD-10) ?Z87.19 - Personal history of other diseases of the digestive system (ICD-10) H/O hemorrhoidectomy ?Z98.890 - Other specified postprocedural states (ICD-10) Hx of appendectomy ?Z90.49 - Acquired absence of other specified parts of digestive tract (ICD- 10) S/P arthroscopy of right shoulder (05/25/13) ?Z98.890 - Other specified postprocedural states (ICD-10) Family History Father High blood pressure Mother High blood pressure Social History Narrative: -[place] What is your current living situation?: I presently have a place to live Problems where you live: no known problems In the past 12 months, utilities in danger of being shut off: no In the past 12 mos, have been you worried that your food would run out before you had money to buy more?: never true In the past 12 mos, the food you bought just didn't last and you didn't have money to buy more?: never true Smoking Status: Never smoker Do you use any of these nicotine containing products: None Second hand tobacco smoke exposure: No How often do you have a drink containing alcohol: 2-3 times a week Alcohol type: beer, wine and hard liquor How many standard drinks containing alcohol do you have on a typical day: 1 or 2 AUDIT-C Alcohol total score: 3 Non-prescribed substance use: denies use Caffeine: No How often does anyone, including family, friends and others, physically hurt you : How often does anyone, including family, friends and others, insult or talk down to you: How often does anyone, including family, friends and others, threaten you with harm: How often does anyone, including family, friends and others, scream or curse at you: Little interest or pleasure in doing things: not at all Feeling down, depressed, or hopeless: not at all service: Yes ([employer]) Exam Const: Vital Signs, click to edit/add: Vital Signs - 24 hr 12/21/22 01:46 Temperature 98.1 F Pulse Rate [Left P ulse Oximeter] 79 Respiratory Rate 16 Blood Pressure [Ri ght Upper Arm] 183/104 H Pulse Oximetry 98 Oxygen Delivery Me thod Room Air Documenting provider has reviewed patient's vital signs: yes Common normals: no apparent distress General appearance: cooperative, comfortable and well kempt Other: Good historian, excellent insight Eye: Common normals: conjunctivae normal General eye: normal appearance of both eyes Conjunctiva: conjunctiva(e) normal Resp: Common normals: normal respiratory effort Effort & inspection: able to speak in complete sentences Cardio: Common normals: regular rate and regular rhythm Rate: regular rate Rhythm: regular rhythm GI: Common normals: Normal to inspection, nondistended, normoactive bowel sounds present and soft to palpation Palpation: soft Psych: Appearance: well kempt Insight: insight good Judgement: judgment good Skin: Common normals: no rashes or lesions noted General skin exam: no rashes or lesions noted Course Course Hospital Course: Urinary retention noted on bladder scan, symptoms consistent. No symptoms worrisome for infection. Catheter placed, 1 L of clear appearing urine has flowed. Patient with improvement in symptoms. Discussed catheter care. Referrals placed to Urology. A couple of different providers per his request. Patient can also contact his primary care team or schedule his own appointments should he choose. This was discussed. Continue the finasteride, encouraged to try the tamsulosin again. Alarm symptoms reviewed that would warrant ED presentation. He verbalizes understanding and agreement. He requests a prescription for the Flomax, this is done. Vital Signs Vital signs: Initial Vital Signs Temperature 98.1 F 12/21/22 01:46 Temperature Source Temporal Artery Scan 12/21/22 01:46 Pulse Rate 79 12/21/22 01:46 Respiratory Rate 16 12/21/22 01:46 Blood Pressure 183/104 H 12/21/22 01:46 Blood Pressure Mean 130 H 12/21/22 01:46 Blood Pressure Position Sitting 12/21/22 01:46 Pulse Oximetry 98 12/21/22 01:46 Oxygen Delivery Method Room Air 12/21/22 01:46 Vital Signs Temperature 98.1 F 12/21/22 01:46 Pulse Rate 79 12/21/22 01:46 Respiratory Rate 16 12/21/22 01:46 Blood Pressure 183/104 H 12/21/22 01:46 Pulse Oximetry 98 12/21/22 01:46 Oxygen Delivery Method Room Air 12/21/22 01:46 Temperature 98.1 F 12/21/22 01:46 Pulse Rate 79 12/21/22 01:46 Respiratory Rate 16 12/21/22 01:46 Blood Pressure 183/104 H 12/21/22 01:46 Pulse Oximetry 98 12/21/22 01:46 Oxygen Delivery Method Room Air 12/21/22 01:46 Discharge Plan Discharge Clinical Impression: Acute urinary retention Patient Disposition: Home w/ Parent or Adult Condition: Improved Instructions: Urinary Retention in Men (ED) Additional Instructions: Unfortunately, urinary retention is very common. Your catheter has been replaced. I would recommend that the stay in until you are able to see Urology. Continue the finasteride medication though this will not work quickly. If your able to tolerate the tamsulosin, I do still think this is worth getting used to. This medication is much more likely to help. It is clear that your going to need a longer term solution for management of your bladder. I will place a referral to Urology to help with this. You may also contact her primary care provider to see if they have faster avenues for this referral. Your also welcome to call for appointments on your own. It often takes several weeks to get an appointment. The biggest risk with having a catheter is infection. If you start having severe bladder pain, especially with fevers, please let your providers know so that they may look for infection. We do recommend gently cleaning the head of the penis once daily gently with soap and water to reduce bacterial load. Activity Level: No Restrictions Discharge Diet: Regular Prescriptions: New tamsulosin 0.4 mg capsule 0.4 mg PO QHS Qty: 90 3RF No Action tylenol suspension See Rx Instructions .ROUTE .COMPLEX Rx Instructions: 30ml po Q 6h; finasteride 5 mg tablet 5 mg PO QDAY Qty: 14 0RF aspirin 81 mg tablet,delayed release (DR/EC) 162 mg PO QDAY simvastatin 20 mg tablet 20 mg PO DAILY hydrochlorothiazide 12.5 mg tablet 12.5 mg PO DAILY amlodipine 2.5 mg tablet 2.5 mg PO DAILY cholecalciferol (vitamin D3) [Vitamin D3] 50 mcg (2,000 unit) capsule 50 mcg PO DAILY Follow Up/Referrals: Nikolay Pierce MD [Referring] - 7 Days (First available urology) Issac Mcnally MD [Primary Care Provider] - Maia Siu MD [Referring] - 7 Days (1st available urology for urinary retention) Stand Alone Forms: My[employer] Info Instructions
--- NOTE | 2022-12-21 02:12 | ED.NURSE ---
catheter initial output 700cc.
== END 2022-12-21 02:16 | disposition home or self-care (01) ==
LOC: ED 02:07
PROVIDERS: Emergency Provider Family Medicine; PCP Family Medicine
DX: R33.9 Retention of urine, unspecified (principal)
CPT/HCPCS: 51702; 51798; 99282; 99283

== ENCOUNTER 2023-01-13 08:00 | Outpatient (RCR) | payer MEDICARE, SELFPAY | END 2023-03-15 10:15 | disposition home or self-care (01) | PROVIDERS: PCP Family Medicine; Visit Provider Orthopaedic Surgery | DX: M16.12 Unilateral primary osteoarthritis, left hip (principal); Z96.642 Presence of left artificial hip joint; M25.552 Pain in left hip; R26.9 Unspecified abnormalities of gait and mobility; R53.1 Weakness; Z74.09 Other reduced mobility; Z51.89 Encounter for other specified aftercare | CPT/HCPCS: 97110; 97116; 97140; 97162; 97164; 97530 ==

== ENCOUNTER 2024-01-10 13:45 | Outpatient (RCR) | payer MEDICARE, SELFPAY ==
--- NOTE | 2023-12-27 17:13 | PT.OPEX ---
PT [place] [facility] Eval PT [facility] Eval Start: 12/27/23 15:37 Freq: Status: Active Protocol: Document 12/27/23 15:37 [facility] (Rec: 12/27/23 17:08 [facility] [id number]) E-signed By Ashok Mcmahan PT Physical Therapy Outpatient Evaluation Insurance Information Recert Due Date 03/20/24 Insurance Name Medicare B Medical Diagnosis Right shoulder bursitis Treating Diagnosis Right shoulder pain M25.511 Shoulder stiffness M25.[address] Ko Subjective Preferred Name Brandon Sullivan Pt presents with right shoulder pain, aching x ~1 year, insidious onset He has a history of right RTC repair 11 years ago. one tendon ( biceps) tore again, but we decided to leave it. Recent x -rays did not show anything significant. 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 Pt denies clicking/popping, denies numbness/tingling. Pt reports that he has two ribs that go out for which he sees a chiropractor who puts them back in place Aggravating: being really active - shoveling rock, heavy lifting, straining through R shoulder, sometimes sleeping on R side Relieving: rest, He does not take medicine for pain or ice/ heat PMH: Left MELODY one year ago, R RCR 11 years ago Pain Comments At worst: 6/10 (after heavy work) At best: 0/10 Av-2/10 Date of Last Physician Visit 12/26/23 Current Work Status Retired Occupation Still active on his property/ outside Precautions Therapy Limitations/Systems Review Not Limited Objective Other/Pertinent Objective UE AROM: R WNL, mild aching posterior shoulder after testing, but not limiting L WNL Strength: R shoulder 5/5, painfree Special tests: Impingement: negative Labral: negative Palpation: Non tender: deltoid bursa, biceps tendon (Palpable & visible ruptured biceps tendon ). GH mobs normal mobility and non painful. WNL scapular mobility, non painful + tenderness: posterior/ lateral cuff (infraspinatus/ teres minor) Functional Test Performed & Score Weight bearing: has not done plank or push up exercises for years. Did not attempt today. Assessment Assessment/Impression 78 year old female presents with posterior right shoulder aching after doing heavy work around his home. When resting or less active, he is relatively painfree. PMH is significant for Right RCR including biceps tendon that ruptured s/p surgery and was not re-repaired. Brandon is active, strong and in otherwise good health. He demos full active ROM and strength right shoulder per testing. He does have mild posterior cuff palpation tenderness and fatigued with repeated shoulder ER resisted ex. I suspect his pain is primarily due to right posterior cuff soft tissue fatigue with heavy work and need for mobilization and targeted strengthening and stabilization exercises. I recommend skilled PT for progression in a shoulder strength/stabilization HEP and manual therapy/education on self-dynamic mobilization techniques to reduce soft tissue pain. Primary Functional Limitations aching after heavy work outside (see above) Plan of Care Rehabilitation Potential Excellent Physical Therapy Goals In 6-8 weeks, patient will: 1) Report right shoulder pain max of 3/10 after doing heavy work outside - ie. heavy lifting, shoveling, wrenching, etc 2) Be I with comprehensive HEP to facilitate shoulder strength and stabilization, including weight bearing ex, to be better prepared for outdoor activities around the house Coordination/Communication With Referral Source Treatment Plan/Direct Interventions Manual Therapy,Neuromuscular Re-ed,Self-Care/Home Management,Therapeutic Activities,Therapeutic Exercises Frequency/Duration 1x/week for 6-8 weeks Patient Will Be Discharged From Therapy Completion of LTG(s), Independent w/HEP, Independently Progressing Evaluation Billing Untimed Code Treatment Minutes 25 Complexity Low Certification Information Initial Certification Date 12/27/23 Ending Certification Date 03/20/24 Provider Signature Required Yes Provider Signature Shows Agreement With POC & Medical Necessity Physician NPI Number Write NPI# Here Physician Comment/Change : Physician Signature & Date Requested Please Sign/Date Here
== END 2024-01-11 08:20 | disposition home or self-care (01) ==
PROVIDERS: PCP Family Medicine; Visit Provider Orthopaedic Surgery
DX: M75.51 Bursitis of right shoulder (principal); Z51.89 Encounter for other specified aftercare
CPT/HCPCS: 97110; 97140; 97161; 97535

== ENCOUNTER 2024-04-24 06:24 | Outpatient (CLI) | payer MEDICARE, SELFPAY ==
--- OUTSIDE RECORDS SUMMARY | 2024-04-24 06:26 | XMS_ITS | Encounter Summary ---
Author Name [facility] [facility] [place] Address [address] [place] [address] Care Team Providers Care Salon Leader Name Role Phone ELY DE LEÓN Primary Care Provider Unavailsanya erwin Insurance Providers: All historical and current Section Date Range: From patient's date of to the date document was created. This section includes the names of all active insurance providers for the patient. Insurance Provider Type of Coverage Plan Name Start of Policy Coverage End of Policy Coverage Group Number Member ID Insurance Provider's Telephone Number Policy Estrada's Name Patient's Relationship to Policy Estrada [facility] (WNR) MEDICARE ADVANTAGE MCR ([facility]) Jun 06, 2019 [id number] [phone] MARANDA SALAZAR PATIENT [facility] (WNR) MEDICARE ADVANTAGE MCR ([facility]) Nov 04, 2012 [id number] MARANDA SALAZAR PATIENT Selected Encounter This section includes the information on record at [place] for the Encounter. Date/Time Encounter Type Encounter Description Reason Provider Source Apr 25, 2023 01:11 PM OFF/OP EST OCTOBER X REQ PHY/QHP GENERAL INTERNAL MEDICINE ICD-10-CM Z77.29 Contact with and exposure to other hazardous substances HENRY CALDWELL E Encounter Template Text not used by [place] Assessments - Encounter Diagnoses This section includes the primary and secondary diagnoses documented for the Encounter. Date/Time Primary/Secondary Diagnosis Diagnosis Name Provider Source Apr 25, 2023 03:01 PM PRIMARY Contact with and exposure to other hazardous substances HENRY CALDWELL [facility] Plan of Treatment: Future Appointments (+ 6 months) and Future Tests (+/- 45 days) The Plan of Treatment section includes future care activities for the patient from all [place] treatmentfacilities. This section includes future appointments and future orders which are active, pending or scheduled. Future Appointments This section includes appointments that were scheduled to occur 6 months from the date of the Encounter, up to a maximum of 20 appointments. The data comes from all [place] treatment facilities. Appointment Date/Time Appointment Type Appointme nt Facility Name May 03, 2023 08:15 AM AMBULATORY - NONE [facility] May 03, 2023 09:00 AM AMBULATORY - MEDICINE RODY LOPEZ [facility] Sep 08, 2023 07:45 AM AMBULATORY - SURGERY [facility] Lab Results: +/- 30 days of the encounter This section includes the Chemistry and Hematology Lab Results on record with [place] for the patient. Radiology Reports and Pathology Reports are provided separately, in subsequent sections. Lab Results This section contains the Chemistry/Hematology Results that were resulted 30 days before or 30 daysafter the date of the Encounter. Date/Time Source Result Type Result - Unit Interpretation Reference Range Comment May 03, 2023 08:01 AM [facility] HEMOGLOBIN A1C Specimen Type: BLOOD Comment: Values obtained from A1C measurements can vary. For typical A1C assays, a reported value of 7.0 could actually be between 6.7 and 7.3 if measured by a reference method. A reported value of 9.0 could actually be between 8.7 and 9.3. Ref: http://www.ngs p.org/CAPdata. asp Ordering Provider: ANIRUDH LONDON Report Released Date/Time: Apr 28, 2022 12:00 PM Reporting Lab: [facility] [id number] Performing Lab: [facility] [id number] HEMOGLOBIN A1C 5.4 4.0-6.0 May 03, 2023 08:01 AM [facility] BASIC METABOLIC PANEL+MG Specimen Type: PLASMA Comment: Elevated triglyceride result from a non-fasting specimen should be interpreted with caution. A fasting panel is recommended for accurate triglycerides when trigs are >200 from a non-fasting specimen. Ordering Provider: ANIRUDH LONDON Report Released Date/Time: Apr 28, 2022 12:00 PM Reporting Lab: [facility] [phone] Performing Lab: [facility] [phone] CREATININE 1.2 mg/dL 0.7-1.2 UREA NITROGEN 17 mg/dL 8-26 GLUCOSE 97 mg/dL 70-100 SODIUM 138 mmol/L 136-145 POTASSIUM 3.9 mmol/L 3.5-5.1 CHLORIDE 102 mmol/L 98-107 CO2 26 mmol/L 22-29 CALCIUM 9.2 mg/dL 8.4-10.2 MAGNESIUM 1.9 mg/dL 1.6-2.6 ANION GAP 10 mmol/L 5-15 .CREAT EGFR(CKD-EPI) 63 >60 May 03, 2023 08:01 AM [facility] LIPID PANEL,NON-FASTING Specimen Type: PLASMA Comment: Elevated triglyceride result from a non-fasting specimen should be interpreted with caution. A fasting panel is recommended for accurate triglycerides when trigs are >200 from a non-fasting specimen. Ordering Provider: ANIRUDH LONDON Report Released Date/Time: Apr 28, 2022 12:00 PM Reporting Lab: [facility] [phone] Performing Lab: [facility] [phone] CHOLESTEROL 192 mg/dL <199 .HDL 41 mg/dL >40 LDL CALCULATION 79 mg/dL <99 VLDL CALCULATION 72 mg/dL H <29 NON HDL CHOLESTEROL 151 mg/dL H <129 TRIG(NON FASTING) 358 mg/dL H <149 May 03, 2023 08:01 AM [facility] CBC Specimen Type: BLOOD No comment entered. Ordering Provider: ELY DE LEÓN Report Released Date/Time: Mar 09, 2023 02:38 PM Reporting Lab: [facility] [phone] Performing Lab: [facility] [phone] WBC 5.30 10*3/uL 4.0-11.0 RBC 5.36 10*6/uL 4.6-6.2 HGB 15.0 g/dL 13.5-17.9 HCT 44.9 41-54 MCV 83.8 fL 80-100 MCH 28.0 pg 27-33 MCHC 33.4 g/dL 32.0-37.5 PLT 201 10*3/uL 150-400 MPV 9.0 fL 7.4-10.4 RDW 12.6 11.5-14.5 May 03, 2023 08:01 AM [facility] PSA Specimen Type: SERUM No comment entered. Ordering Provider: ELY DE LEÓN Report Released Date/Time: Mar 09, 2023 02:38 PM Reporting Lab: [facility] [phone] Performing Lab: [facility] [phone] PSA 1.36 ng/mL <4.00 May 03, 2023 08:01 AM [facility] LIPID PANEL,NON-FASTING Specimen Type: PLASMA Comment: Elevated triglyceride result from a non-fasting specimen should be interpreted with caution. A fasting panel is recommended for accurate triglycerides when trigs are >200 from a non-fasting specimen. Ordering Provider: ELY DE LEÓN Report Released Date/Time: Mar 09, 2023 02:38 PM Reporting Lab: [facility] [phone] Performing Lab: [facility] [phone] CHOLESTEROL 194 mg/dL <199 .HDL 41 mg/dL >40 LDL CALCULATION 82 mg/dL <99 VLDL CALCULATION 71 mg/dL H <29 NON HDL CHOLESTEROL 153 mg/dL H <129 TRIG(NON FASTING) 356 mg/dL H <149 May 03, 2023 08:01 AM [facility] TSH W/REFLEX TO FREE T4 Specimen Type: PLASMA Comment: Elevated triglyceride result from a non-fasting specimen should be interpreted with caution. A fasting panel is recommended for accurate triglycerides when trigs are >200 from a non-fasting specimen. Ordering Provider: ELY DE LEÓN Report Released Date/Time: Mar 09, 2023 02:38 PM Reporting Lab: [facility] [phone] Performing Lab: [facility] [phone] TSH 2.69 u[IU]/mL 0.35-4.94 May 03, 2023 08:01 AM [facility] COMPREHENSIVE METABOLIC PANEL+MG Specimen Type: PLASMA Comment: Elevated triglyceride result from a non-fasting specimen should be interpreted with caution. A fasting panel is recommended for accurate triglycerides when trigs are >200 from a non-fasting specimen. Ordering Provider: ELY DE LEÓN Report Released Date/Time: Mar 09, 2023 02:38 PM Reporting Lab: [facility] [phone] Performing Lab: [facility] [phone] CREATININE 1.2 mg/dL 0.7-1.2 UREA NITROGEN 17 mg/dL 8-26 GLUCOSE 97 mg/dL 70-100 SODIUM 138 mmol/L 136-145 POTASSIUM 3.7 mmol/L 3.5-5.1 CHLORIDE 102 mmol/L 98-107 CO2 27 mmol/L 22-29 CALCIUM 9.2 mg/dL 8.4-10.2 PROTEIN,TOTAL 7.1 g/dL 6.0-8.3 ALBUMIN 4.4 g/dL 3.5-5.2 BILIRUBIN, TOTAL 0.8 mg/dL 0.2-1.2 MAGNESIUM 1.9 mg/dL 1.6-2.6 ANION GAP 9 mmol/L 5-15 ALKALINE PHOSPHATASE 79 U/L 40-150 ALT/SGPT 19 U/L <55 AST/SGOT 25 U/L <34 .CREAT EGFR(CKD-EPI) 63 >60 May 03, 2023 08:01 AM [facility] HEMOGLOBIN A1C Specimen Type: BLOOD Comment: Values obtained from A1C measurements can vary. For typical A1C assays, a reported value of 7.0 could actually be between 6.7 and 7.3 if measured by a reference method. A reported value of 9.0 could actually be between 8.7 and 9.3. Ref: http://www.ngs p.org/CAPdata. asp Ordering Provider: ELY DE LEÓN Report Released Date/Time: Mar 09, 2023 02:38 PM Reporting Lab: [facility] [phone] Performing Lab: [facility] [phone] HEMOGLOBIN A1C 5.4 4.0-6.0 Social History: Smoking Status (Most current) and Tobacco Use (All prior to encounter date) This section includes the most current, and the historical, smoking and tobacco- related health factors from the [place] facility where the Encounter took place. Current Smoking Status This section includes the most current smoking, or tobacco-related health factor, from the [place] facility where the Encounter took place. Date/Time Current Smoking Status Comment Chelsey orona Apr 28, 2022 08:00 AM [place]-TOBACCO NEVER USED [facility] Tobacco Use History This section includes a history of the smoking, or tobacco-related health factors, that were collected on or before the date of the Encounter. The data comes from the [place] facility where the Encounter took place. Date/Time Smoking Status/Tobacco Use Comment F acility Apr 02, 2021 02:18 PM [place]-TOBACCO NEVER USED [facility] Mar 26, 2019 10:38 AM VA-TOBACCO NEVER USED [facility] Mar 21, 2018 10:23 AM VA-TOBACCO NEVER USED [facility] Apr 05, 2017 09:18 AM LIFETIME NON-TOBACCO USER [facility] Apr 14, 2016 08:06 AM LIFETIME NON-TOBACCO USER [facility] Mar 27, 2015 09:52 AM LIFETIME NON-TOBACCO USER [facility] Feb 20, 2014 07:48 AM LIFETIME NON-TOBACCO USER [facility] Jun 29, 2007 08:10 AM LIFETIME NON-TOBACCO USER [facility] Advance Directives: All historical and current Section Date Range: From patient's date of to the date document was created. This section includes ALL of a patient's completed or amended [place] Advance and Rescinded Directives. The entries below indicate that a directive exists for the patient, but an actual copy is not included with this document. The data comes from all [facility]. Date Advance Directives Provider Source Aug 02, 2016 ADVANCE DIRECTIVE LANDY HESSMeron [facility] Aug 02, 2016 ADVANCE DIRECTIVE DISCUSSION THAI HESS [facility] May 25, 2005 ADVANCE DIRECTIVE YULIANA HERNANDEZ [facility] Encounter Notes: All associated encounter notes This section contains the clinical notes associated to the Encounter. 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 Concern: Developed a cough after being in the service. PFTs done and normal. No imaging on file. 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 Soaked boards in a plastic tub and cleaned them with a soft brush, used rubber gloves most of the time but was also breathing right over the tub of chemicals. Hands would get dry. The following connections were provided to the [place]/caregiver: [employer] ([employer] for Benefits/claims: /es/ HENRY CALDWELL APRN CNP CERTIFIED NURSE PRACTITIONER Signed: 04/25/2023 15:02 HENRY CALDWELL [facility]
--- OUTSIDE RECORDS SUMMARY | 2024-04-24 06:26 | XMS_ITS | Continuity of Care Document ---
Author Name [facility] Organization [facility] Care Team Providers Care Radio Interference Trouble Shooter Name Role Phone [facility] Unavailable Unavailable Problems Combined list of problems from Department of Defense and Veterans Affairs facilities. It does not include entries that were removed or entered in error. Problem Status Onset Date Problem Type Date of Resolution Comments Source Allergic rhinitis (SNOMED CT [id number]) Active Condition [facility] Chronic cough [facility] Dysphagia Active Condition [facility] Erectile dysfunction Active Condition [facility] Essential hypertension Active Condition [facility] Exposure to potentially hazardous substance Active Condition [facility] Hyperlipidemia Active Condition [facility] Kidney stone Active Condition [facility] Multiple closed fractures of cervical vertebrae Active Condition Mar 27, 2015 Entered By: LAURA HEWITT Comment: high impact fracture of T12 [facility] 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, 2020 Entered By: LAURA HEWITT Comment: 2 adenomas in 2014, 1 in 2017 [facility] Tremor Active Condition [facility] Urinary retention due to benign prostatic hypertrophy Active Condition [facility] Diagnosis: ICD-10-CM R13.10 Dysphagia, unspecified Active Diagnosis [facility] Diagnosis: ICD-10-CM H90.3 Sensorineural hearing loss, bilateral Active Diagnosis [facility] Diagnosis: ICD-10-CM N40.1 Benign prostatic hyperplasia with lower urinary tract symp Active Diagnosis [facility] Diagnosis: ICD-10-CM Z77.29 Contact with and exposure to other hazardous substances Active Diagnosis [facility] Diagnosis: ICD-10-CM Z71.9 Counseling, unspecified Active Diagnosis [facility] Medications Combined list of outpatient medications from Department of Defense and Veterans Affairs facilities.Medications provided include 1) outpatient medications from the last 15 months, and 2) patient-reported medications. Medication Details Route Status Patient Instructions Prescription Expires Prescription Number Last Dispense Date Ordering Provider Order Date Order Qty Source AMLODIPINE BESYLATE 2.5MG TAB TAKE ONE TABLET BY MOUTH EVERY DAY FOR BLOOD PRESSURE ORAL ACTIVE 03/08/2025 [id number] SARTHAKELY 2023 90 [place] [facility] AMLODIPINE BESYLATE 2.5MG TAB TAKE ONE TABLET BY MOUTH EVERY DAY FOR BLOOD PRESSURE ORAL DISCONT INUED 05/03/2024 [id number] SARTHAK ELY 2023 90 [place] [facility] AMLODIPINE BESYLATE 2.5MG TAB TAKE ONE TABLET BY MOUTH EVERY DAY FOR BLOOD PRESSURE ORAL DISCONT INUED 06/20/2023 [id number] BLAKE COVINGTON 2022 90 [facility] [facility] AMLODIPINE BESYLATE 2.5MG TAB TAKE ONE TABLET BY MOUTH EVERY DAY FOR HIGH BLOOD PRESSURE ORAL DISCONT INUED 04/29/2023 [id number] VINCENZO L[place]ON 2021 90 [place] [facility] CHOLECALCIF GYPSY TAB TAKE 1000 UNIT BY MOUTH EVERY DAY ORAL ACTIVE [facility]MING [facility] FINASTERIDE 5MG TAB TAKE ONE TABLET BY MOUTH EVERY DAY FOR PROSTATE ORAL ACTIVE 03/08/2025 [id number] SARTHAKELY 2023 90 [place] [facility] FINASTERIDE 5MG TAB TAKE ONE TABLET BY MOUTH EVERY DAY FOR PROSTATE ORAL DISCONT INUED 05/03/2024 [id number] SARTHAKELY 2022 90 [place] [facility] FISH OIL 1000MG (500MG DHA/EPA) CAP,ORAL TAKE 2 CAPSULES BY MOUTH DAILY ORAL ACTIVE KEATON STEELE 2007 [place] [facility] HYDROCHLORO THIAZIDE 12.5MG TAB TAKE ONE TABLET BY MOUTH EVERY DAY FOR BLOOD PRESSURE . TABLE T CHANGE. PLEASE TAKE WHOLE TABLET ORAL ACTIVE 03/08/2025 [id number] 4 ELY DE LEÓN 2023 90 [facility] [facility] HYDROCHLORO THIAZIDE 12.5MG TAB TAKE ONE TABLET BY MOUTH EVERY DAY FOR BLOOD PRESSURE . TABLE T CHANGE. PLEASE TAKE WHOLE TABLET ORAL DISCONT INUED 05/03/2024 [id number] 4 ELY DE LEÓN 2023 90 [place] [facility] HYDROCHLORO THIAZIDE 12.5MG TAB TAKE ONE TABLET BY MOUTH EVERY DAY FOR BLOOD PRESSURE . TABLE T CHANGE. PLEASE TAKE WHOLE TABLET ORAL DISCONT INUED 06/20/2023 [id number] BLAKE COVINGTON 2022 90 [place] [facility] HYDROCHLORO THIAZIDE 12.5MG TAB TAKE ONE TABLET BY MOUTH EVERY DAY FOR BLOOD PRESSURE . TABLE T CHANGE. PLEASE TAKE WHOLE TABLET ORAL DISCONT INUED 04/29/2023 [id number] VINCENZO [place]ON 2021 90 [place] [facility] SILDENAFIL CITRATE 50MG TAB TAKE ONE TABLET BY MOUTH EVERY DAY NEEDED FOR ERECTION S -TAKE 1 HOUR BEFORE ANTICIPA EYAD SEXUAL ACTIVITY ORAL ACTIVE 03/08/2025 [id number] ELY DE LEÓN 2023 18 [place] SILDENAFIL CITRATE 50MG TAB TAKE ONE TABLET BY MOUTH EVERY DAY NEEDED FOR ERECTION S -TAKE 1 HOUR BEFORE ANTICIPA EYAD SEXUAL ACTIVITY ORAL DISCONT INUED 05/03/2024 [id number] 4 ELY DE LEÓN 2022 18 [place] [facility] SIMVASTATIN 20MG TAB TAKE ONE TABLET BY MOUTH AT BEDTIME FOR CHOLESTE ROL ORAL SUSPEND ED 03/08/2025 [id number] 4 ELY DE LEÓN 2023 90 [place] [facility] SIMVASTATIN 20MG TAB TAKE ONE TABLET BY MOUTH AT BEDTIME FOR CHOLESTE ROL ORAL DISCONT INUED 05/03/2024 [id number] 4 ELY DE LEÓN 2022 90 [place] [facility] SIMVASTATIN 20MG TAB TAKE ONE TABLET BY MOUTH AT BEDTIME FOR CHOLESTE ROL ORAL DISCONT INUED 06/20/2023 [id number] BLAKE COV[place] 2022 90 [place] [facility] SIMVASTATIN 20MG TAB TAKE ONE TABLET BY MOUTH AT BEDTIME FOR CHOLESTE ROL ORAL DISCONT INUED 04/29/2023 [id number] L[place]ON, VINCENZO A 2021 90 [facility] TAMSULOSIN HCL 0.4MG CAP TAKE ONE CAPSULE BY MOUTH TWICE A DAY FOR URINARY SYMPTOMS ORAL ACTIVE 03/08/2025 [id number] 4 SARTHAKELY 2023 180 [facility] TAMSULOSIN HCL 0.4MG CAP TAKE ONE CAPSULE BY MOUTH TWICE A DAY FOR URINARY SYMPTOMS ORAL DISCONT INUED 05/03/2024 [id number] SARTHAKELY 2022 180 [facility] Immunizations Combined list of available immunizations from the Department of Defense and Veterans Affairs facilities. Immunization Series Date Given Administered By Site Reaction Lot Number CVX Code Drug Box Sealing Inspector Status Comments Source INFLUENZA, HIGH-DOSE, TRIVALENT, PF 2023 JACOB ALTAMIRANO E LEFT DELTO ID [id number] A 135 complet ed [facility] COVID-19 (MODERNA), MRNA, LNP-S, PF, 50 MCG/0.5 ML (AGES 12+ YEARS) 2023 312 complet ed [facility] COVID-19 (PFIZER), MRNA, LNP-S, PF, EDMOND-SUCROSE, 30 MCG/0.3 ML (AGES 12+ YEARS) 2022 309 complet [facility] INFLUENZA, HIGH-DOSE, QUADRIVALENT 2022 197 complet ed [facility] TDAP 2022 115 complet ed [facility] COVID-19 (PFIZER), MRNA, LNP-S, BIVALENT, PF, 30 MCG/0.3 ML DOSE 2022 300 complet ed [facility] TDAP 2021 115 complet ed [facility] COVID-19 (PFIZER), MRNA, LNP-S, BIVALENT BOOSTER, PF, 30 MCG/0.3 ML DOSE 1 2021 300 complet ed [facility] INFLUENZA, HIGH-DOSE, QUADRIVALENT 2021 197 complet ed [facility] INFLUENZA, UNSPECIFIED FORMULATION 2021 88 complet ed [facility] COVID-19 (PFIZER), MRNA, LNP-S, PF, 30 MCG/0.3 ML DOSE 4 2021 208 complet ed [facility] COVID-19 (PFIZER), MRNA, LNP-S, PF, 30 MCG/0.3 ML DOSE, EDMOND-SUCROSE (AGES 12+ YEARS) 2021 217 complet ed [facility] COVID-19 (PFIZER), MRNA, LNP-S, PF, 30 MCG/0.3 ML DOSE 3 2020 208 complet ed [facility] INFLUENZA, HIGH-DOSE, QUADRIVALENT 2020 197 complet ed [facility] INFLUENZA, UNSPECIFIED FORMULATION 2020 88 complet ed [facility] COVID-19 (PFIZER), MRNA, LNP-S, PF, 30 MCG/0.3 ML DOSE 2 2020 208 complet ed [facility] COVID-19 (Liquid Machines), MRNA, LNP-S, PF, 30 MCG/0.3 ML DOSE 1 2020 208 complet ed [facility] ZOSTER RECOMBINANT 2 2019 187 complet ed [facility] ZOSTER RECOMBINANT 1 2018 187 complet ed [facility] INFLUENZA, HIGH DOSE SEASONAL 2018 135 complet ed [facility] INFLUENZA, HIGH DOSE SEASONAL 2017 135 complet ed [facility] INFLUENZA, SEASONAL, INJECTABLE 2017 141 complet ed [facility] INFLUENZA, HIGH DOSE SEASONAL 2016 135 complet ed [facility] PNEUMOCOCCAL POLYSACCHARID E PPV23 2015 33 complet ed [employer]; [id number]; 8 [facility] INFLUENZA, SEASONAL, INJECTABLE 2015 141 complet ed [facility] INFLUENZA, HIGH DOSE SEASONAL 2014 135 complet ed [facility] PNEUMOCOCCAL CONJUGATE PCV 13 2014 133 complet ed [address] [place] [address] INFLUENZA, UNSPECIFIED FORMULATION 2013 88 complet ed [facility] INFLUENZA, UNSPECIFIED FORMULATION 2012 88 complet ed [facility] INFLUENZA, SEASONAL, INJECTABLE, PRESERVATIVE FREE 2011 140 complet ed [facility] INFLUENZA, UNSPECIFIED FORMULATION 2010 88 complet ed [facility] PNEUMOCOCCAL POLYSACCHARID E PPV23 2010 33 complet ed [facility] INFLUENZA, UNSPECIFIED FORMULATION 2010 88 complet ed [facility] INFLUENZA, SEASONAL, INJECTABLE 2010 141 complet ed [facility] TDAP 2010 115 complet ed [employer] hkll[employer] [id number] a 08-27-2012 [facility] INFLUENZA, UNSPECIFIED FORMULATION 2009 88 complet ed [facility] INFLUENZA, UNSPECIFIED FORMULATION 2009 KANA LE 88 complet ed [facility] NOVEL INFLUENZA-H1N 1-09, ALL FORMULATIONS 2009 128 complet ed [employer] [facility] INFLUENZA, UNSPECIFIED FORMULATION 2008 88 complet ed [facility] ZOSTER LIVE 2008 121 complet ed [employer], 0140Y, 24 Dec 13 [facility] PNEUMOCOCCAL, UNSPECIFIED FORMULATION 2008 109 complet ed [employer] [id number] 01-26-09 [facility] INFLUENZA, UNSPECIFIED FORMULATION 2007 88 complet ed [facility] INFLUENZA (HISTORICAL) 2006 88 complet ed [facility] INFLUENZA (HISTORICAL) 2005 88 complet ed [facility] INFLUENZA (HISTORICAL) 2004 88 complet ed [facility] INFLUENZA (HISTORICAL) 2003 88 complet ed [facility] TD(ADULT) UNSPECIFIED FORMULATION 2000 139 complet ed [facility] Results Combined list of recent chemistry, hematology and other laboratory results from Department of Defense and Veterans Affairs, ranging from 15 months to all on record, depending upon the facility. Order Name Results Value Reference Range Date Interpretation Specimen Comments Source HEMOGLOBI N A1C HEMOGLOBIN A1C/HEMOGLO BIN.TOTAL IN BLOOD 5.4 4.0 - 6.0 03/07 Specimen Type: BLOOD Comment: Values obtained from A1C measurement s can vary. For typical A1C assays, a reported value of 7.0 could actually be between 6.7 and 7.3 if measured by a reference method. A reported value of 9.0 could actually be between 8.7 and 9.3. Ref: [email or web address]://[email or web address].org/[place] Pdata.asp Ordering Provider: SA BINTA DE LEÓN Report Released Date/Time: May 03, 2023 09:40 AM Reporting Lab: [facility] [address] Performing Lab: [facility] [address] [facility] PSA PROSTATE SPECIFIC AG [MASS/VOLUM E] IN SERUM OR PLASMA 1.13 ng/mL <4.00 - 4.00 03/07 Specimen Type: SERUM No comment entered. Ordering Provider: SA BINTA DE LEÓN Report Released Date/Time: May 03, 2023 09:40 AM Reporting Lab: [facility] [phone] Performing Lab: [facility] [address] [facility] LIPID PANEL,NON -FASTING CHOLESTEROL [MASS/VOLUM E] IN SERUM OR PLASMA 153 mg/dL <199 - 199 03/07 Specimen Type: PLASMA Comment: Elevated triglycerid e result from a non-fasting specimen should be interpreted with caution. A fasting panel is recommended for accurate triglycerid es when trigs are >200 from a non-fasting specimen. Ordering Provider: SA BINTA DE LEÓN Report Released Date/Time: May 03, 2023 09:40 AM Reporting Lab: [facility] [address] Performing Lab: [facility] [address] [facility] LIPID PANEL,NON -FASTING CHOLESTEROL IN HDL [MASS/VOLUM E] IN SERUM OR PLASMA 39 mg/dL 40 03/07 L Specimen Type: PLASMA Comment: Elevated triglycerid e result from a non-fasting specimen should be interpreted with caution. A fasting panel is recommended for accurate triglycerid es when trigs are >200 from a non-fasting specimen. Ordering Provider: SA BINTA DE LEÓN Report Released Date/Time: May 03, 2023 09:40 AM Reporting Lab: [facility] [address] Performing Lab: [facility] [address] [place] [facility] LIPID PANEL,NON -FASTING CHOLESTEROL IN LDL [MASS/VOLUM E] IN SERUM OR PLASMA BY CALCULATION 72 mg/dL <99 - 99 03/07 Specimen Type: PLASMA Comment: Elevated triglycerid e result from a non-fasting specimen should be interpreted with caution. A fasting panel is recommended for accurate triglycerid es when trigs are >200 from a non-fasting specimen. Ordering Provider: SA BINTA DE LEÓN Report Released Date/Time: May 03, 2023 09:40 AM Reporting Lab: [facility] [address] Performing Lab: [facility] [address] [place] [facility] LIPID PANEL,NON -FASTING CHOLESTEROL IN VLDL [MASS/VOLUM E] IN SERUM OR PLASMA BY CALCULATION 42 mg/dL <29 - 29 03/07 H Specimen Type: PLASMA Comment: Elevated triglycerid e result from a non-fasting specimen should be interpreted with caution. A fasting panel is recommended for accurate triglycerid es when trigs are >200 from a non-fasting specimen. Ordering Provider: SA BINTA DE LEÓN Report Released Date/Time: May 03, 2023 09:40 AM Reporting Lab: [facility] [address] Performing Lab: [facility] [address] [place] [facility] LIPID PANEL,NON -FASTING CHOLESTEROL NON HDL [MASS/VOLUM E] IN SERUM OR PLASMA 114 mg/dL <129 - 129 03/07 Specimen Type: PLASMA Comment: Elevated triglycerid e result from a non-fasting specimen should be interpreted with caution. A fasting panel is recommended for accurate triglycerid es when trigs are >200 from a non-fasting specimen. Ordering Provider: SA BINTA DE LEÓN Report Released Date/Time: May 03, 2023 09:40 AM Reporting Lab: [facility] [address] Performing Lab: [facility] [address] [place] [facility] LIPID PANEL,NON -FASTING TRIGLYCERID E [MASS/VOLUM E] IN SERUM OR PLASMA 210 mg/dL <149 - 149 03/07 H Specimen Type: PLASMA Comment: Elevated triglycerid e result from a non-fasting specimen should be interpreted with caution. A fasting panel is recommended for accurate triglycerid es when trigs are >200 from a non-fasting specimen. Ordering Provider: SA BINTA DE LEÓN Report Released Date/Time: May 03, 2023 09:40 AM Reporting Lab: [facility] [address] Performing Lab: [facility] [address] [facility] BASIC METABOLIC PANEL+MG CREATININE [MASS/VOLUM E] IN SERUM OR PLASMA 1.1 mg/dL 0.7 - 1.2 03/07 Specimen Type: PLASMA Comment: Elevated triglycerid e result from a non-fasting specimen should be interpreted with caution. A fasting panel is recommended for accurate triglycerid es when trigs are >200 from a non-fasting specimen. Ordering Provider: SA BINTA DE LEÓN Report Released Date/Time: May 03, 2023 09:40 AM Reporting Lab: [facility] [address] Performing Lab: [facility] [address] [facility] BASIC METABOLIC PANEL+MG UREA NITROGEN [MASS/VOLUM E] IN SERUM OR PLASMA 24 mg/dL 8 - 26 03/07 Specimen Type: PLASMA Comment: Elevated triglycerid e result from a non-fasting specimen should be interpreted with caution. A fasting panel is recommended for accurate triglycerid es when trigs are >200 from a non-fasting specimen. Ordering Provider: SA BINTA DE LEÓN Report Released Date/Time: May 03, 2023 09:40 AM Reporting Lab: [facility] [address] Performing Lab: [facility] [address] [place] [facility] BASIC METABOLIC PANEL+MG GLUCOSE [MASS/VOLUM E] IN SERUM OR PLASMA 97 mg/dL 70 - 100 03/07 Specimen Type: PLASMA Comment: Elevated triglycerid e result from a non-fasting specimen should be interpreted with caution. A fasting panel is recommended for accurate triglycerid es when trigs are >200 from a non-fasting specimen. Ordering Provider: SA BINTA DE LEÓN Report Released Date/Time: May 03, 2023 09:40 AM Reporting Lab: [facility] [address] Performing Lab: [facility] [address] [place] [facility] BASIC METABOLIC PANEL+MG SODIUM [MOLES/VOLU ME] IN SERUM OR PLASMA 141 mmol/L 136 - 145 03/07 Specimen Type: PLASMA Comment: Elevated triglycerid e result from a non-fasting specimen should be interpreted with caution. A fasting panel is recommended for accurate triglycerid es when trigs are >200 from a non-fasting specimen. Ordering Provider: SA BINTA DE LEÓN Report Released Date/Time: May 03, 2023 09:40 AM Reporting Lab: [facility] [address] Performing Lab: [facility] [address] [place] [facility] BASIC METABOLIC PANEL+MG POTASSIUM [MOLES/VOLU ME] IN SERUM OR PLASMA 3.8 mmol/L 3.5 - 5.1 03/07 Specimen Type: PLASMA Comment: Elevated triglycerid e result from a non-fasting specimen should be interpreted with caution. A fasting panel is recommended for accurate triglycerid es when trigs are >200 from a non-fasting specimen. Ordering Provider: SA BINTA DE LEÓN H Report Released Date/Time: May 03, 2023 09:40 AM Reporting Lab: [facility] [address] Performing Lab: [facility] [address] [place] [facility] BASIC METABOLIC PANEL+MG CHLORIDE [MOLES/VOLU ME] IN SERUM OR PLASMA 106 mmol/L 98 - 107 03/07 Specimen Type: PLASMA Comment: Elevated triglycerid e result from a non-fasting specimen should be interpreted with caution. A fasting panel is recommended for accurate triglycerid es when trigs are >200 from a non-fasting specimen. Ordering Provider: SA BINTA DE LEÓN H Report Released Date/Time: May 03, 2023 09:40 AM Reporting Lab: [facility] [address] Performing Lab: [facility] [address] [place] [facility] BASIC METABOLIC PANEL+MG CARBON DIOXIDE, TOTAL [MOLES/VOLU ME] IN SERUM OR PLASMA 27 mmol/L 22 - 29 03/07 Specimen Type: PLASMA Comment: Elevated triglycerid e result from a non-fasting specimen should be interpreted with caution. A fasting panel is recommended for accurate triglycerid es when trigs are >200 from a non-fasting specimen. Ordering Provider: SA BINTA DE LEÓN Report Released Date/Time: May 03, 2023 09:40 AM Reporting Lab: [facility] [address] Performing Lab: [facility] [address] [facility] BASIC METABOLIC PANEL+MG CALCIUM [MASS/VOLUM E] IN SERUM OR PLASMA 9.2 mg/dL 8.4 - 10.2 03/07 Specimen Type: PLASMA Comment: Elevated triglycerid e result from a non-fasting specimen should be interpreted with caution. A fasting panel is recommended for accurate triglycerid es when trigs are >200 from a non-fasting specimen. Ordering Provider: SA BINTA DE LEÓN Report Released Date/Time: May 03, 2023 09:40 AM Reporting Lab: [facility] [address] Performing Lab: [facility] [address] [facility] BASIC METABOLIC PANEL+MG MAGNESIUM [MASS/VOLUM E] IN SERUM OR PLASMA 2.1 mg/dL 1.6 - 2.6 03/07 Specimen Type: PLASMA Comment: Elevated triglycerid e result from a non-fasting specimen should be interpreted with caution. A fasting panel is recommended for accurate triglycerid es when trigs are >200 from a non-fasting specimen. Ordering Provider: SA BINTA DE LEÓN Report Released Date/Time: May 03, 2023 09:40 AM Reporting Lab: [facility] [address] Performing Lab: [facility] [address] [facility] BASIC METABOLIC PANEL+MG ANION GAP IN SERUM OR PLASMA 8 mmol/L 5 - 15 03/07 Specimen Type: PLASMA Comment: Elevated triglycerid e result from a non-fasting specimen should be interpreted with caution. A fasting panel is recommended for accurate triglycerid es when trigs are >200 from a non-fasting specimen. Ordering Provider: SA BINTA DE LEÓN Report Released Date/Time: May 03, 2023 09:40 AM Reporting Lab: [facility] [address] Performing Lab: [facility] [address] [place] [facility] BASIC METABOLIC PANEL+MG GLOMERULAR FILTRATION RATE/1.73 SQ M.PREDICTED [VOLUME RATE/AREA] IN SERUM, PLASMA OR BLOOD BY CREATININE- BASED FORMULA (CKD-EPI 2020) 70 60 03/07 Specimen Type: PLASMA Comment: Elevated triglycerid e result from a non-fasting specimen should be interpreted with caution. A fasting panel is recommended for accurate triglycerid es when trigs are >200 from a non-fasting specimen. Ordering Provider: SA BINTA DE LEÓN Report Released Date/Time: May 03, 2023 09:40 AM Reporting Lab: [facility] [address] Performing Lab: [facility] [address] [place] [facility] HEMOGLOBI N A1C HEMOGLOBIN A1C/HEMOGLO BIN.TOTAL IN BLOOD 5.4 4.0 - 6.0 05/03 Specimen Type: BLOOD Comment: Values obtained from A1C measurement s can vary. For typical A1C assays, a reported value of 7.0 could actually be between 6.7 and 7.3 if measured by a reference method. A reported value of 9.0 could actually be between 8.7 and 9.3. Ref: http://www. [email or web address].org/[place] Pdata.asp Ordering Provider: ME BASIL LONDON Report Released Date/Time: Apr 28, 2022 12:00 PM Reporting Lab: [facility] [address] Performing Lab: [facility] [address] [place] [facility] LIPID PANEL,NON -FASTING CHOLESTEROL [MASS/VOLUM E] IN SERUM OR PLASMA 192 mg/dL <199 - 199 05/03 Specimen Type: PLASMA Comment: Elevated triglycerid e result from a non-fasting specimen should be interpreted with caution. A fasting panel is recommended for accurate triglycerid es when trigs are >200 from a non-fasting specimen. Ordering Provider: ME BASIL LONDON Report Released Date/Time: Apr 28, 2022 12:00 PM Reporting Lab: [facility] [address] Performing Lab: [facility] [address] [place] [facility] LIPID PANEL,NON -FASTING CHOLESTEROL IN HDL [MASS/VOLUM E] IN SERUM OR PLASMA 41 mg/dL 40 05/03 Specimen Type: PLASMA Comment: Elevated triglycerid e result from a non-fasting specimen should be interpreted with caution. A fasting panel is recommended for accurate triglycerid es when trigs are >200 from a non-fasting specimen. Ordering Provider: ME BASIL LONDON Report Released Date/Time: Apr 28, 2022 12:00 PM Reporting Lab: [facility] [address] Performing Lab: [facility] [address] [place] [facility] LIPID PANEL,NON -FASTING CHOLESTEROL IN LDL [MASS/VOLUM E] IN SERUM OR PLASMA BY CALCULATION 79 mg/dL <99 - 99 05/03 Specimen Type: PLASMA Comment: Elevated triglycerid e result from a non-fasting specimen should be interpreted with caution. A fasting panel is recommended for accurate triglycerid es when trigs are >200 from a non-fasting specimen. Ordering Provider: ME BASIL LONDON Report Released Date/Time: Apr 28, 2022 12:00 PM Reporting Lab: [facility] [address] Performing Lab: [facility] [address] [place] [facility] LIPID PANEL,NON -FASTING CHOLESTEROL IN VLDL [MASS/VOLUM E] IN SERUM OR PLASMA BY CALCULATION 72 mg/dL <29 - 29 05/03 H Specimen Type: PLASMA Comment: Elevated triglycerid e result from a non-fasting specimen should be interpreted with caution. A fasting panel is recommended for accurate triglycerid es when trigs are >200 from a non-fasting specimen. Ordering Provider: ME BASIL LONDON Report Released Date/Time: Apr 28, 2022 12:00 PM Reporting Lab: [facility] [address] Performing Lab: [facility] [address] [place] [facility] LIPID PANEL,NON -FASTING CHOLESTEROL NON HDL [MASS/VOLUM E] IN SERUM OR PLASMA 151 mg/dL <129 - 129 05/03 H Specimen Type: PLASMA Comment: Elevated triglycerid e result from a non-fasting specimen should be interpreted with caution. A fasting panel is recommended for accurate triglycerid es when trigs are >200 from a non-fasting specimen. Ordering Provider: ME BASIL LONDON Report Released Date/Time: Apr 28, 2022 12:00 PM Reporting Lab: [facility] [address] Performing Lab: [facility] [address] [facility] LIPID PANEL,NON -FASTING TRIGLYCERID E [MASS/VOLUM E] IN SERUM OR PLASMA 358 mg/dL <149 - 149 05/03 H Specimen Type: PLASMA Comment: Elevated triglycerid e result from a non-fasting specimen should be interpreted with caution. A fasting panel is recommended for accurate triglycerid es when trigs are >200 from a non-fasting specimen. Ordering Provider: ME BASIL LONDON Report Released Date/Time: Apr 28, 2022 12:00 PM Reporting Lab: [facility] [address] Performing Lab: [facility] [address] [facility] BASIC METABOLIC PANEL+MG CREATININE [MASS/VOLUM E] IN SERUM OR PLASMA 1.2 mg/dL 0.7 - 1.2 05/03 Specimen Type: PLASMA Comment: Elevated triglycerid e result from a non-fasting specimen should be interpreted with caution. A fasting panel is recommended for accurate triglycerid es when trigs are >200 from a non-fasting specimen. Ordering Provider: ME BASIL LONDON Report Released Date/Time: Apr 28, 2022 12:00 PM Reporting Lab: [facility] [address] Performing Lab: [facility] [address] [facility] BASIC METABOLIC PANEL+MG UREA NITROGEN [MASS/VOLUM E] IN SERUM OR PLASMA 17 mg/dL 8 - 26 05/03 Specimen Type: PLASMA Comment: Elevated triglycerid e result from a non-fasting specimen should be interpreted with caution. A fasting panel is recommended for accurate triglycerid es when trigs are >200 from a non-fasting specimen. Ordering Provider: ME BASIL LONDON Report Released Date/Time: Apr 28, 2022 12:00 PM Reporting Lab: [facility] [address] Performing Lab: [facility] [address] [place] [facility] BASIC METABOLIC PANEL+MG GLUCOSE [MASS/VOLUM E] IN SERUM OR PLASMA 97 mg/dL 70 - 100 05/03 Specimen Type: PLASMA Comment: Elevated triglycerid e result from a non-fasting specimen should be interpreted with caution. A fasting panel is recommended for accurate triglycerid es when trigs are >200 from a non-fasting specimen. Ordering Provider: ME BASIL LONDON Report Released Date/Time: Apr 28, 2022 12:00 PM Reporting Lab: [facility] [address] Performing Lab: [facility] [address] [place] [facility] BASIC METABOLIC PANEL+MG SODIUM [MOLES/VOLU ME] IN SERUM OR PLASMA 138 mmol/L 136 - 145 05/03 Specimen Type: PLASMA Comment: Elevated triglycerid e result from a non-fasting specimen should be interpreted with caution. A fasting panel is recommended for accurate triglycerid es when trigs are >200 from a non-fasting specimen. Ordering Provider: ME BASIL LONDON Report Released Date/Time: Apr 28, 2022 12:00 PM Reporting Lab: [facility] [address] Performing Lab: [facility] [address] [place] [facility] BASIC METABOLIC PANEL+MG POTASSIUM [MOLES/VOLU ME] IN SERUM OR PLASMA 3.9 mmol/L 3.5 - 5.1 05/03 Specimen Type: PLASMA Comment: Elevated triglycerid e result from a non-fasting specimen should be interpreted with caution. A fasting panel is recommended for accurate triglycerid es when trigs are >200 from a non-fasting specimen. Ordering Provider: ME BASIL LONDON Report Released Date/Time: Apr 28, 2022 12:00 PM Reporting Lab: [facility] [address] Performing Lab: [facility] [phone] [place] [facility] BASIC METABOLIC PANEL+MG CHLORIDE [MOLES/VOLU ME] IN SERUM OR PLASMA 102 mmol/L 98 - 107 05/03 Specimen Type: PLASMA Comment: Elevated triglycerid e result from a non-fasting specimen should be interpreted with caution. A fasting panel is recommended for accurate triglycerid es when trigs are >200 from a non-fasting specimen. Ordering Provider: ME BASIL LONDON Report Released Date/Time: Apr 28, 2022 12:00 PM Reporting Lab: [facility] [address] Performing Lab: [facility] [address] [place] [facility] BASIC METABOLIC PANEL+MG CARBON DIOXIDE, TOTAL [MOLES/VOLU ME] IN SERUM OR PLASMA 26 mmol/L - 05/03 Specimen Type: PLASMA Comment: Elevated triglycerid e result from a non-fasting specimen should be interpreted with caution. A fasting panel is recommended for accurate triglycerid es when trigs are >200 from a non-fasting specimen. Ordering Provider: ME BASIL LONDON Report Released Date/Time: Apr 28, 2022 12:00 PM Reporting Lab: [facility] [address] Performing Lab: [facility] [address] [facility] BASIC METABOLIC PANEL+MG CALCIUM [MASS/VOLUM E] IN SERUM OR PLASMA 9.2 mg/dL 8.4 - 10.2 05/03 Specimen Type: PLASMA Comment: Elevated triglycerid e result from a non-fasting specimen should be interpreted with caution. A fasting panel is recommended for accurate triglycerid es when trigs are >200 from a non-fasting specimen. Ordering Provider: ME BASIL LONDON Report Released Date/Time: Apr 28, 2022 12:00 PM Reporting Lab: [facility] [address] Performing Lab: [facility] [address] [place] [facility] BASIC METABOLIC PANEL+MG MAGNESIUM [MASS/VOLUM E] IN SERUM OR PLASMA 1.9 mg/dL 1.6 - 2.6 05/03 Specimen Type: PLASMA Comment: Elevated triglycerid e result from a non-fasting specimen should be interpreted with caution. A fasting panel is recommended for accurate triglycerid es when trigs are >200 from a non-fasting specimen. Ordering Provider: ME BASIL LONDON Report Released Date/Time: Apr 28, 2022 12:00 PM Reporting Lab: [facility] [address] Performing Lab: [facility] [address] [place] [facility] BASIC METABOLIC PANEL+MG ANION GAP IN SERUM OR PLASMA 10 mmol/L 5 - 15 05/03 Specimen Type: PLASMA Comment: Elevated triglycerid e result from a non-fasting specimen should be interpreted with caution. A fasting panel is recommended for accurate triglycerid es when trigs are >200 from a non-fasting specimen. Ordering Provider: ME BASIL LONDON Report Released Date/Time: Apr 28, 2022 12:00 PM Reporting Lab: [facility] [address] Performing Lab: [facility] [address] [place] [facility] BASIC METABOLIC PANEL+MG GLOMERULAR FILTRATION RATE/1.73 SQ M.PREDICTED [VOLUME RATE/AREA] IN SERUM, PLASMA OR BLOOD BY CREATININE- BASED FORMULA (CKD-EPI 2020) 63 60 05/03 Specimen Type: PLASMA Comment: Elevated triglycerid e result from a non-fasting specimen should be interpreted with caution. A fasting panel is recommended for accurate triglycerid es when trigs are >200 from a non-fasting specimen. Ordering Provider: ME BASIL LONDON Report Released Date/Time: Apr 28, 2022 12:00 PM Reporting Lab: [facility] [address] Performing Lab: [facility] [address] [facility] CBC LEUKOCYTES [#/VOLUME] IN BLOOD BY AUTOMATED COUNT 5.30 10*3/u L 4.0 - 11.0 05/03 Specimen Type: BLOOD No comment entered. Ordering Provider: SA BINTA DE LEÓN Report Released Date/Time: Mar 09, 2023 02:38 PM Reporting Lab: [facility] [address] Performing Lab: [facility] [address] [facility] CBC ERYTHROCYTE S [#/VOLUME] IN BLOOD BY AUTOMATED COUNT 5.36 10*6/u L 4.6 - 6.2 05/03 Specimen Type: BLOOD No comment entered. Ordering Provider: SA BINTA DE LEÓN Report Released Date/Time: Mar 09, 2023 02:38 PM Reporting Lab: [facility] [address] Performing Lab: [facility] [address] [place] [facility] CBC HEMOGLOBIN [MASS/VOLUM E] IN BLOOD 15.0 g/dL 13.5 - 17.9 05/03 Specimen Type: BLOOD No comment entered. Ordering Provider: SA BINTA DE LEÓN Report Released Date/Time: Mar 09, 2023 02:38 PM Reporting Lab: [facility] [address] Performing Lab: [facility] [address] [place] [facility] CBC HEMATOCRIT [VOLUME FRACTION] OF BLOOD BY AUTOMATED COUNT 44.9 41 - 54 05/03 Specimen Type: BLOOD No comment entered. Ordering Provider: SA BINTA DE LEÓN Report Released Date/Time: Mar 09, 2023 02:38 PM Reporting Lab: [facility] [address] Performing Lab: [facility] [address] [place] [facility] CBC MCV [ENTITIC VOLUME] BY AUTOMATED COUNT 83.8 fL 80 - 100 05/03 Specimen Type: BLOOD No comment entered. Ordering Provider: SA BINTA DE LEÓN Report Released Date/Time: Mar 09, 2023 02:38 PM Reporting Lab: [facility] [address] Performing Lab: [facility] [address] [place] [facility] CBC MCH [ENTITIC MASS] BY AUTOMATED COUNT 28.0 pg 27 - 33 05/03 Specimen Type: BLOOD No comment entered. Ordering Provider: SA BINTA DE LEÓN Report Released Date/Time: Mar 09, 2023 02:38 PM Reporting Lab: [facility] [address] Performing Lab: [facility] [address] [place] [facility] CBC MCHC [MASS/VOLUM E] BY AUTOMATED COUNT 33.4 g/dL 32.0 - 37.5 05/03 Specimen Type: BLOOD No comment entered. Ordering Provider: SA BINTA DE LEÓN Report Released Date/Time: Mar 09, 2023 02:38 PM Reporting Lab: [facility] [address] Performing Lab: [facility] [address] [place] [facility] CBC PLATELETS [#/VOLUME] IN BLOOD BY AUTOMATED COUNT 201 10*3/u L 150 - 400 05/03 Specimen Type: BLOOD No comment entered. Ordering Provider: SA BINTA DE LEÓN Report Released Date/Time: Mar 09, 2023 02:38 PM Reporting Lab: [facility] [address] Performing Lab: [facility] [address] [facility] CBC PLATELET MEAN VOLUME [ENTITIC VOLUME] IN BLOOD BY AUTOMATED COUNT 9.0 fL 7.4 - 10.4 05/03 Specimen Type: BLOOD No comment entered. Ordering Provider: SA BINTA DE LEÓN Report Released Date/Time: Mar 09, 2023 02:38 PM Reporting Lab: [facility] [address] Performing Lab: [facility] [address] [facility] CBC ERYTHROCYTE DISTRIBUTIO N WIDTH [RATIO] BY AUTOMATED COUNT 12.6 11.5 - 14.5 05/03 Specimen Type: BLOOD No comment entered. Ordering Provider: SA BINTA DE LEÓN Report Released Date/Time: Mar 09, 2023 02:38 PM Reporting Lab: [facility] [address] Performing Lab: [facility] [address] [facility] PSA PROSTATE SPECIFIC AG [MASS/VOLUM E] IN SERUM OR PLASMA 1.36 ng/mL <4.00 - 4.00 05/03 Specimen Type: SERUM No comment entered. Ordering Provider: SA BINTA DE LEÓN Report Released Date/Time: Mar 09, 2023 02:38 PM Reporting Lab: [facility] [address] Performing Lab: [facility] [address] [facility] TSH W/REFLEX TO FREE T4 THYROTROPIN [UNITS/VOLU ME] IN SERUM OR PLASMA 2.69 u[IU]/ mL 0.35 - 4.94 05/03 Specimen Type: PLASMA Comment: Elevated triglycerid e result from a non-fasting specimen should be interpreted with caution. A fasting panel is recommended for accurate triglycerid es when trigs are >200 from a non-fasting specimen. Ordering Provider: SA BINTA DE LEÓN Report Released Date/Time: Mar 09, 2023 02:38 PM Reporting Lab: [facility] [address] Performing Lab: [facility] [address] [place] [facility] Vital Signs Combined list of inpatient and outpatient Vital Signs from Department of Defense and Veterans Affairs, ranging from 12 months to all on record, depending upon the facility. Vital Sign Value Date Comments Source SYSTOLIC BLOOD PRESSURE 138 03/07/2024 09:05:09 [facility] DIASTOLIC BLOOD PRESSURE 78 03/07/2024 09:05:09 [facility] PULSE OXIMETRY 99 03/07/2024 09:05:09 [facility] WEIGHT 181 03/07/2024 09:05:09 [place] [facility] BMI 27kg/m2 03/07/2024 09:05:09 [place] [facility] PAIN 0 03/07/2024 09:05:09 [place] [facility] HEIGHT 69 03/07/2024 09:05:09 [place] [facility] TEMPERATURE 97.8 03/07/2024 09:05:09 [place] [facility] PULSE 64 03/07/2024 09:05:09 [place] [facility] RESPIRATION 16 03/07/2024 09:05:09 [place] [facility] SYSTOLIC BLOOD PRESSURE 144 05/03/2023 08:43:49 [facility] DIASTOLIC BLOOD PRESSURE 82 05/03/2023 08:43:49 [facility] PULSE OXIMETRY 98% 05/03/2023 08:43:49 [place] [facility] WEIGHT 183.3 05/03/2023 08:43:49 [place] [facility] BMI 28kg/m2 05/03/2023 08:43:49 [place] [facility] PA[facility] 0 05/03/2023 08:43:49 [place] [facility] HEIGHT 68.5 05/03/2023 08:43:49 [place] [facility] TEMPERATURE 97.9 05/03/2023 08:43:49 [place] [facility] PULSE 86 05/03/2023 08:43:49 [place] [facility] RESPIRATION 18 05/03/2023 08:43:49 RODY LOPEZ [facility] Encounters Combined list of: 1) Encounters from Department of Veterans Affairs facilities going back up to thelast 18 months. 2) Encounters from the Department of [facility] facilities going back up to 280 months. Location Location Details Encounter Type Encounter Number Reason For Visit Attending Provider ADM Date DC Date Status Disposition Source [place] [facility] Outpatient Encounter [id number] 11/24 [facility] [place] [facility] Outpatient Encounter [id number] KIANA RAY 01/13 [facility] [place] [facility] Outpatient Encounter [id number] 01/14 [facility] [place] [facility] Outpatient Encounter [id number] 01/28 [facility] [place] [facility] Outpatient Encounter [id number] 02/02 [facility] [place] [facility] HC PRO PHONE CALL 5-10 MIN [id number] Diagnos is: ICD-10- CM 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
RON NAYAK 02/03 [facility] [place] [facility] Outpatient Encounter [id number] 02/03 [facility] [place] [facility] Outpatient Encounter [id number] 03/09 [facility] [place] [facility] Outpatient Encounter [id number] 03/09 [facility] [place] [facility] Outpatient Encounter [id number] 03/21 [facility] Outpatient Encounter [id number] Diagnos is: ICD-10- CM Z77.29 Contact with and exposur e to other hazardo us substan domingo<br/ > NANDO CALDWELL 04/25 RHIANNON ARROYO G [facility] OFF/OP EST MAY X REQ PHY/QHP [id number] Diagnos is: ICD-10- CM Z77.29 Contact with and exposur e to other hazardo us substan domingo<br/ > NANDO CALDWELL J 04/25 [facility] Outpatient Encounter [id number] 05/03 [facility] OFFICE O/P EST HI 40-54 MIN [id number] Diagnos is: ICD-10- CM 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
Meron DE LEÓN ALL H 05/03 [facility] HEARING AID REPAIR/MOD IFYING [id number] Diagnos is: ICD-10- CM H90.3 Sensori neural hearing loss, bilater al
EDILBERTO LOPEZ A 09/07 [facility] Outpatient Encounter [id number] 02/06 [facility] Outpatient Encounter [id number] 03/06 [facility] OFFICE O/P EST HI 40 MIN [id number] Diagnos is: ICD-10- CM R13.10 Dysphag ia, 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
Meron DE LEÓN H 03/07 [facility] ORAL FUNCTION THERAPY [id number] Diagnos is: ICD-10- CM R13.10 Dysphag ia, 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
CORY CRUZ P 04/05 [facility] Outpatient Encounter [id number] 04/12 [facility] Social History Combined list of available smoking, tobacco, and other social history from Department of Defense and Veterans Affairs facilities. Social History Type Response Date Comment Sourc e Tobacco smoking status NHIS VA-TOBACCO NEVER USED 03/07/2024 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 Additional future care activities may be listed in the Assessment and Plan section. Date/Time Care Activity Care Activity Detail Facili ty 06/19/2024 AMBULATORY - MEDICINE AMBULATORY - MEDICI [facility] 09/13/2024 AMBULATORY - SURGERY AMBULATORY - SURGERY [facility] Advance Directives List of completed, amended, or rescinded Advance Directives on record at Department [facility] facilities. An actual copy of the Directive is not included. Date Advance Directive Provider Source 08/02/2016 ADVANCE DIRECTIVE LANDY HESS [facility] 05/25/2005 ADVANCE DIRECTIVE [facility]ULIANA HERNANDEZ [facility]
--- OUTSIDE RECORDS SUMMARY | 2024-04-24 06:27 | XMS_ITS | Encounter Summary ---
Author Name [facility] Organization [facility] Address [address] [place] [address] Care Team Providers Care Teacher Counselor Name Role Phone KIM DE LEÓN Primary Care Provider Unavailabl e Insurance Providers: All historical and current Section [...] Patient's Relationship to Policy Estrada [facility] OF [facility] (WNR) MEDICARE ADVANTAGE MCR ([facility] Jun 06, 2019 [id number] MARANDA SALAZAR PATIENT [facility] OF [facility] (WNR) MEDICARE ADVANTAGE MCR ([facility]) Nov 04, 2012 [id number] [phone] MARANDA SALAZAR PATIENT Selected Encounter This section includes the information on record at MD for the Encounter. Date/Time Encounter Type Encounter Description Reason Provider Source May 03, 2023 09:00 AM OFFICE O/P EST HI 40-54 MIN PRIMARY CARE/MEDICINE ICD-10-CM N40.1 Benign prostatic hyperplasia with lower urinary tract symp KIM DE LEÓN IHE Encounter Template Text not used by [facility] Assessments - Encounter Diagnoses This section includes the primary and secondary diagnoses documented for the Encounter. Date/Time Primary/Secondary Diagnosis Diagnosis Name Provider Source May 03, 2023 09:54 AM PRIMARY Benign prostatic hyperplasia with lower urinary tract symp GERSON DE LEÓN [facility] May 03, 2023 09:54 AM SECONDARY Essential (primary) hypertension GERSON DE LEÓN [facility] May 03, 2023 09:54 AM SECONDARY Hyperlipidemia, unspecified GERSON DE LEÓN [facility] May 03, 2023 09:54 AM SECONDARY Male erectile dysfunction, unspecified GERSON DE LEÓN [facility] Plan of Treatment: Future Appointments (+ 6 months) and Future Tests (+/- 45 days) The Plan of Treatment section includes future care activities for the patient [facility] This section includes future appointments and future orders which are active, pending or scheduled. Future Appointments This section includes appointments that were scheduled to occur 6 months from the date of the Encounter, up to a maximum of 20 appointments. The data comes from all [facility] facilities. Appointment Date/Time Appointment Type Appointme nt Facility Name Sep 08, 2023 07:45 AM AMBULATORY - SURGERY [facility] Lab Results: +/- 30 days of the encounter This section includes the Chemistry and Hematology Lab Results on record with MD for the patient. Radiology Reports and Pathology Reports are provided separately, in subsequent sections. Lab Results This section contains the Chemistry/Hematology Results that were resulted 30 days before or 30 daysafter the date of the Encounter. Date/Time Source Result Type Result - Unit Interpretation Reference Range Comment May 03, 2023 08:01 AM [facility] HEMOGLOBIN A1C Specimen Type: BLOOD Comment: Values [...] Apr 28, 2022 12:00 PM Reporting Lab: [facility] [id number] Performing Lab: [facility] [id number] HEMOGLOBIN A1C 5.4 4.0-6.0 May 03, 2023 08:01 AM [facility] LIPID PANEL,NON-FASTING Specimen Type: PLASMA Comment: Elevated triglyceride result from a non-fasting specimen should be interpreted with caution. A fasting panel is recommended for accurate triglycerides when trigs are >200 from a non-fasting specimen. Ordering Provider: ANIRUDH LONDON Report Released Date/Time: Apr 28, 2022 12:00 PM Reporting Lab: [facility] [id number] Performing Lab: [facility] [phone] CHOLESTEROL 192 mg/dL <199 .HDL 41 mg/dL >40 LDL CALCULATION 79 mg/dL <99 VLDL CALCULATION 72 mg/dL H <29 NON HDL CHOLESTEROL 151 mg/dL H <129 TRIG(NON FASTING) 358 mg/dL H <149 May 03, 2023 08:01 AM [facility] BASIC METABOLIC PANEL+MG Specimen Type: PLASMA Comment: Elevated triglyceride result from a non-fasting specimen should be interpreted with caution. A fasting panel is recommended for accurate triglycerides when trigs are >200 from a non-fasting specimen. Ordering Provider: ANIRUDH LONDON Report Released Date/Time: Apr 28, 2022 12:00 PM Reporting Lab: [facility] [phone] Performing Lab: [facility] [id number] CREATININE 1.2 mg/dL 0.7-1.2 UREA NITROGEN 17 mg/dL 8-26 GLUCOSE 97 mg/dL 70-100 SODIUM 138 mmol/L 136-145 POTASSIUM 3.9 mmol/L 3.5-5.1 CHLORIDE 102 mmol/L 98-107 CO2 26 mmol/L 22-29 CALCIUM 9.2 mg/dL 8.4-10.2 MAGNESIUM 1.9 mg/dL 1.6-2.6 ANION GAP 10 mmol/L 5-15 .CREAT EGFR(CKD-EPI) 63 >60 May 03, 2023 08:01 AM [facility] CBC Specimen Type: BLOOD No comment entered. Ordering Provider: KIM DE LEÓN Report Released Date/Time: Mar 09, 2023 02:38 PM Reporting Lab: [facility] [id number] Performing Lab: [facility] [id number] WBC 5.30 10*3/uL 4.0-11.0 RBC 5.36 10*6/uL 4.6-6.2 HGB 15.0 g/dL 13.5-17.9 HCT 44.9 41-54 MCV 83.8 fL 80-100 MCH 28.0 pg 27-33 MCHC 33.4 g/dL 32.0-37.5 PLT 201 10*3/uL 150-400 MPV 9.0 fL 7.4-10.4 RDW 12.6 11.5-14.5 May 03, 2023 08:01 AM [facility] PSA Specimen Type: SERUM No comment entered. Ordering Provider: KIM DE LEÓN Report Released Date/Time: Mar 09, 2023 02:38 PM Reporting Lab: [facility] [address] Performing Lab: [facility] [id number] PSA 1.36 ng/mL <4.00 May 03, 2023 08:01 AM [facility] LIPID PANEL,NON-FASTING Specimen Type: PLASMA Comment: Elevated triglyceride result from a non-fasting specimen should be interpreted with caution. A fasting panel is recommended for accurate triglycerides when trigs are >200 from a non-fasting specimen. Ordering Provider: KIM DE LEÓN Report Released Date/Time: Mar 09, 2023 02:38 PM Reporting Lab: [facility] [address] Performing Lab: [facility] [address] CHOLESTEROL 194 mg/dL <199 .HDL 41 mg/dL >40 LDL CALCULATION 82 mg/dL <99 VLDL CALCULATION 71 mg/dL H <29 NON HDL CHOLESTEROL 153 mg/dL H <129 TRIG(NON FASTING) 356 mg/dL H <149 May 03, 2023 08:01 AM [facility] TSH W/REFLEX TO FREE T4 Specimen Type: PLASMA Comment: Elevated triglyceride result from a non-fasting specimen should be interpreted with caution. A fasting panel is recommended for accurate triglycerides when trigs are >200 from a non-fasting specimen. Ordering Provider: KIM DE LEÓN Report Released Date/Time: Mar 09, 2023 02:38 PM Reporting Lab: [facility] [id number] Performing Lab: [facility] [id number] TSH 2.69 u[IU]/mL 0.35-4.94 May 03, 2023 08:01 AM [facility] COMPREHENSIVE METABOLIC PANEL+MG Specimen Type: PLASMA Comment: Elevated triglyceride result from a non-fasting specimen should be interpreted with caution. A fasting panel is recommended for accurate triglycerides when trigs are >200 from a non-fasting specimen. Ordering Provider: KIM DE LEÓN Report Released Date/Time: Mar 09, 2023 02:38 PM Reporting Lab: [facility] [phone] Performing Lab: [facility] [address] CREATININE 1.2 mg/dL 0.7-1.2 UREA NITROGEN 17 [...] 63 >60 May 03, 2023 08:01 AM [facility] HEMOGLOBIN A1C Specimen Type: BLOOD Comment: Values obtained from A1C measurements can vary. For typical A1C assays, a reported value of 7.0 could actually be between 6.7 and 7.3 if measured by a reference method. A reported value of 9.0 could actually be between 8.7 and 9.3. Ref: http://www.ngs p.org/CAPdata. asp Ordering Provider: KIM DE LEÓN Report Released Date/Time: Mar 09, 2023 02:38 PM Reporting Lab: [facility] [id number] Performing Lab: [facility] [address] HEMOGLOBIN A1C 5.4 4.0-6.0 Vital Signs: All taken on the encounter date This section contains inpatient and outpatient Vital Signs collected on the date of the Encounter. Date/Time Temperature Pulse Blood Pressure Respiratory Rate SP02 Pain Height Weight Body Mass Index Source May 03, 2023 08:54 AM 90 /min 143/80 mm[Hg] [facility] May 03, 2023 08:43 AM 97.9 F 86 /min 144/82 mm[Hg] 18 /min 98 % 0 68.5 in 183.3 lb 28 [facility] Social History: Smoking Status (Most current) and Tobacco Use (All prior to encounter date) This section includes the most current, and the historical, smoking and tobacco- related health factors from the MD facility where the Encounter took place. Current Smoking Status This section includes the most current smoking, or tobacco-related health factor, from the MD facility where the Encounter took place. Date/Time Current Smoking Status Comment Chelsey ity May 03, 2023 09:00 AM MD-TOBACCO NEVER USED [facility] Tobacco Use History This section includes a history of the smoking, or tobacco-related health factors, that were collected on or before the date of the Encounter. The data comes from the MD facility where the Encounter took place. Date/Time Smoking Status/Tobacco Use Comment F acility Apr 28, 2022 08:00 AM VA-TOBACCO NEVER USED [facility] Apr 02, 2021 02:18 PM VA-TOBACCO NEVER USED [facility] Mar 26, 2019 10:38 AM VA-TOBACCO NEVER USED [facility] Mar 21, 2018 10:23 AM VA-TOBACCO NEVER USED [facility] Apr 05, 2017 09:18 AM LIFETIME NON-TOBACCO USER [facility] Apr 14, 2016 08:06 AM LIFETIME NON-TOBACCO USER [facility] Mar 27, 2015 09:52 AM LIFETIME NON-TOBACCO USER [facility] Feb 20, 2014 07:48 AM LIFETIME NON-TOBACCO USER [facility] Jun 29, 2007 08:10 AM LIFETIME NON-TOBACCO USER [facility] Advance Directives: All historical and current Section Date Range: From patient's date of to the date document was created. This section includes ALL of a patient's completed or amended MD Advance and Rescinded Directives. The entries below indicate that a directive exists for the patient, but an actual copy is not included with this document. The data comes from all MD facilities. Date Advance Directives Provider Source Aug 02, 2016 ADVANCE DIRECTIVE LANDY HESS [facility] Aug 02, 2016 ADVANCE DIRECTIVE DISCUSSION THAI HESS [facility] May 25, 2005 ADVANCE DIRECTIVE YULIANA HERNANDEZ [facility] Encounter Notes: All associated encounter notes This section contains the clinical notes associated to the Encounter. Date/Time Encounter Note(s) Provider Source May 03, 2023 08:12 PM LETTERS: LOCAL TITLE: FOLLOW UP RESULTS LETTER STANDARD TITLE: LETTERS DATE OF NOTE: MAY 03, 2023@20:12 ENTRY DATE: MAY 03, 2023@20:12:25 AUTHOR: KIM DE LEÓN EXP COSIGNER: URGENCY: STATUS: COMPLETED [facility] [address] [place] [address] Apr MARANDA Antony MARLASarita [address] [facility] [id number] Dear : I am writing to inform you of the results of testing that you had done recently at the [facility]. Collection time: May 03, 2023@08:01 Test Name Result Units Range --------- ------ ----- ----- PSA 1.36 ng/mL Ref: <=4.00 TSH 2.69 uIU/mL 0.35 - 4.94 SODIUM 138 mmol/L 136 - 145 POTASSIUM 3.7 mmol/L 3.5 - 5.1 CHLORIDE 102 mmol/L 98 - 107 CO2 27 mmol/L 22 - 29 ANION GAP 9 mmol/L 5 - 15 GLUCOSE 97 mg/dL 70 - 100 UREA NITROGEN 17 mg/dL 8 - 26 CREATININE 1.2 mg/dL 0.7 - 1.2 PROTEIN,TOTAL 7.1 g/dL 6.0 - 8.3 ALBUMIN 4.4 g/dL 3.5 - 5.2 CALCIUM 9.2 mg/dL 8.4 - 10.2 MAGNESIUM 1.9 mg/dL 1.6 - 2.6 BILIRUBIN, TOTAL 0.8 mg/dL 0.2 - 1.2 ALKALINE PHOSPHATASE 79 U/L 40 - 150 AST/SGOT 25 U/L Ref: <=34 ALT/SGPT 19 U/L Ref: <=55 CHOLESTEROL 192 mg/dL Ref: <=199 TRIG(NON FASTING) 358 H mg/dL Ref: <=149 .HDL 41 mg/dL Ref: >=40 LDL CALCULATION 79 mg/dL Ref: <=99 HEMOGLOBIN A1C 5.4 % 4.0 - 6.0 WBC 5.30 K/cmm 4.0 - 11.0 RBC 5.36 M/cmm 4.6 - 6.2 HGB 15.0 g/dL 13.5 - 17.9 HCT 44.9 % 41 - 54 MCV 83.8 fL 80 - 100 MCH 28.0 pg 27 - 33 MCHC 33.4 g/dL 32.0 - 37.5 RDW 12.6 % 11.5 - 14.5 PLT 201 K/cmm 150 - 400 If you have any further questions or problems, please contact our nursing staff or provider at the following number: [phone]. Sincerely, Kim De León MD Physician KIM DE LEÓN [facility] May 03, 2023 08:46 AM INTERNAL MEDICINE OUTPATIENT NOTE: LOCAL TITLE: MEDICINE CLINIC NURSING NOTE STANDARD TITLE: INTERNAL MEDICINE OUTPATIENT NOTE DATE OF NOTE: MAY 03, 2023@08:46 ENTRY DATE: MAY 03, 2023@08:46:58 AUTHOR: TODD GRADY COSIGNER: URGENCY: STATUS: COMPLETED TYPE OF VISIT: Appointment Check In Type of appointment: In-person appointment REASON FOR VISIT: annual check up ALLERGIES: Patient has answered NKA VITAL SIGNS: Blood Pressure: 144/82 (05/03/2023 08:43) recheck 143/80 asymptomatic, pcp notified. Pulse: 86 (05/03/2023 08:43) 90 Respiration: 18 (05/03/2023 08:43) Temperature: 97.9 F [36.6 C] (05/03/2023 08:43) Weight: 183.3 lb [83.14 kg] (05/03/2023 08:43) Height: 68.5 in [174.0 cm] (05/03/2023 08:43) BMI: 27.5 O2 Sat: 98% (05/03/2023 08:43) Pain: 0 (05/03/2023 08:43) PAIN SCREEN: Patient is not having significant pain that they wish to discuss with their provider today. MEDICATION Patient reports the following changes regarding the current pharmacy list of medications: stopped fish oil Over the Counter/Herbal Medications: The patient states that they take some outside medications and/or herbals. Suicide Screen: C-SSRS Screening [place] Suicide Severity Rating Scale (C-SSRS) screener 1. Over the past month, have you wished you were or wished you could go to sleep and not wake up? No 2. Over the past month, have you had any actual thoughts of killing yourself? No 3. Over the past month, have you been thinking about how you might do this? Response not required due to responses to other questions. 4. Over the past month, have you had these thoughts and had some intention of acting on them? Response not required due to responses to other questions. 5. Over the past month, have you started to work out or worked out the details of how to kill yourself? Response not required due to responses to other questions. 6. If yes, at any time in the past month did you intend to carry out this plan? Response not required due to responses to other questions. 7. In your lifetime, have you ever done anything, started to do anything, or prepared to do anything to end your life (for example, collected pills, obtained a gun, gave away valuables, went to the roof but didn't jump)? No 8. If YES, was this within the past 3 months? Response not required due to responses to other questions. Depression Screening: Perform PHQ-2 A PHQ-2 screen was performed. The score was 0 which is a negative screen for depression. Over the past two weeks, how often have you been bothered by the following problems? 1. Little interest or pleasure in doing things Not at all 2. Feeling down, depressed, or hopeless Not at all Alcohol Use Screen (AUDIT-C): Alcohol Screen: SCREEN FOR ALCOHOL (AUDIT-C) An alcohol screening test (AUDIT-C) was negative (score=3). 1. How often did you have a drink containing alcohol in the past year? Two to three times per week 2. How many drinks containing alcohol did you have on a typical day when you were drinking in the past year? One or two drinks 3. How often did you have six or more drinks on one occasion in the past year? Never Nursing Annual Screening: Fall History Screen During the past 12 months, have you had any falls? Patient does not report any falls in the past 12 months. MEDICATIONS: Patient is on one of the following medication classes: Antihypertensives, Antidepressants, Antipsychotics, Diuretics, or Controlled substance medication used for pain. FALL RISK ADVICE: Fall Risk Advice provided. Handout entitled Fall Prevention At Home reviewed and given to patient and/or significant other. Script Talk Screen Are you able to read your prescription bottles with your glasses, magnifiers or other aids? Yes or patient not taking any prescriptions. Skin Screen Patient reports any current pressure ulcers, a history of pressure ulcers, or a wound from a medical radiation tech or Patient is bed-confined or a wheelchair-user or Patient requires assistance to transfer/change position No, Skin Screen is Negative Home Abuse/Violence Screen Is your home free of abuse and violence? Yes MOVE! Program Screen Body Mass Index (BMI)= 27.5 Pfeifer: Collection DT Specimen Test Name Result Units Ref Range 05/03/2023 08:02 BLOOD !! HEMOGLOBIN A1C 5.4 % 4.0 - 6.0 !! Indicates COMMENTS AVAILABLE...Refer to Interim Lab Report. [place] Hgb A1C: No data available [place] Hgb A1C: No data available Point of Care Hgb A1C: POC HGB A1C____ Outpatient Nutrition Screen Body Mass Index (BMI)= 27.5 Pfeifer: Collection DT Specimen Test Name Result Units Ref Range 05/03/2023 08:02 BLOOD !! HEMOGLOBIN A1C 5.4 % 4.0 - 6.0 !! Indicates COMMENTS AVAILABLE...Refer to Interim Lab Report. [place] Hgb A1C: No data available [place] Hgb A1C: No data available Point of Care Hgb A1C: POC HGB A1C____ Is patient's BMI less than 18.5? No Does patient have swallowing, coughing, or chewing problems affecting oral intake? Yes Has patient experienced unplanned weight loss or gain greater than 10 pounds over the last 2 months? No Is patient's Hgb A1C (Glycosylated Hemoglobin) greater than 9.5? No Is patient receiving Total Parenteral Nutrition (TPN) or Tube Feedings? No Patient Health Education Screen BARRIERS/SPECIAL NEEDS: Hearing limitations Visual limitations PREFERRED STYLE OF LEARNING: Other: hands on Client Assistive Service ([place]) Screen Does the patient require assistance with outpatient visit? No Tobacco Use Screening: The patient has never used tobacco. /puma/ TODD GRADY LPN LICENSED PRACTICAL NURSE Signed: 05/03/2023 08:53 TODD GRADY [facility] May 02, 2023 09:49 AM INTERNAL MEDICINE NOTE: LOCAL TITLE: MEDICINE CLINIC NOTE STANDARD TITLE: INTERNAL MEDICINE NOTE DATE OF NOTE: MAY 02, 2023@09:49 ENTRY DATE: APR 26, 2023@14:05:04 AUTHOR: KIM DE LEÓN COSIGNER: URGENCY: STATUS: COMPLETED SUBJECT: CLINIC VISIT MEDICINE CLINIC NOTE Has ADDENDA GENERAL INTERNAL MEDICINE CLINIC PROGRESS NOTE MARANDA SALAZAR is a 77 year old MALE with the following CHIEF COMPLAINT: ESTABLISH CARE WITH A NEW PHYSICIAN THIS AN ESTABLISHED PATIENT IN THE PRIMARY CARE CLINIC HPI: Maranda has a medical history notable for HTN, HLD, Colon adenomas, ED, BPH w/urinary retention, Co managed care Co-managed care: [place]: PCP: Dr. Issac Mcnally Ortho: Dr. Aishwarya Salas/Tanvir: Urology, Dr. Esperanza Mathias Today, we reviewed 's health history in detail, outside records (if applicable and available), pertinent chart notes, medications, any need for refills, pertinent test results, and routine HCM. Additional concerns today included: Left hip MELODY 12/09/22, complicated by urinary retention, initially required cath's, eventually saw Urology/October, now on Finasteride 5 mg daily and Tamsulosin 0.4 mg bid (brought prescription bottles). Discussed potential benefits and side effects. Would like to fill them through the MD Discussed Co-managed care process. Home BP's normal. Topical clotrimazole ineffective for toenail fungus. Not interested in oral rx at this time. Wondered if there is a combination pill for amlodipine, hctz (not available per review of our formulary anyway) Chronic odynophagia w/pasta, rice, unchanged, reviewed work up here. Advised to let me know if changes, escalates HLD: Counseled on wt. loss, exercise, diet The following preventive care screening and other chronic disease management records were reviewed: Immunizations: offered any vaccines that are due, see rooming staff note Blood pressure trends (home, clinic): reviewed BMI: Diet, Exercise: reviewed Labs: See test results section Colon cancer screening (age 45-75): ?last 2017 Colonoscopy:last one approx. 2018 See nursing note regarding the following screening: Pain, suicide, depression, alcohol use, toxic exposures, fall risk, skin screen, home abuse/violence, nutriton, health education, tobacco use use. Today's nurse's notes were reviewed. Active problems - Computerized Problem List is the source for the followin. Essential hypertension 2. Erectile dysfunction 3. Hyperlipidemia 4. Allergic rhinitis (SNOMED CT [id number]) 5. Tremor 6. Kidney stone 7. Multiple closed fractures of cervical vertebrae - high impact fracture of T12 8. Chronic cough 9. 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 Exposure to potentially hazardous substance 11. 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 *USE DOSE CARD IN BOX TO MEASURE DOSE. MAX 32 GRAMS PER DAY. 4) HYDROCHLOROTHIAZIDE 12.5MG TAB TAKE ONE TABLET BY ACTIVE MOUTH EVERY DAY FOR BLOOD PRESSURE . TABLET CHANGE. PLEASE TAKE WHOLE TABLET 5) SILDENAFIL CITRATE 50MG TAB TAKE ONE TABLET BY MOUTH ACTIVE EVERY DAY NEEDED FOR ERECTIONS -TAKE 1 HOUR BEFORE ANTICIPATED SEXUAL ACTIVITY 6) SIMVASTATIN 20MG TAB TAKE ONE TABLET BY MOUTH AT ACTIVE (S) BEDTIME FOR CHOLESTEROL 7) TRIAMCINOLONE ACETONIDE 0.1% CREAM APPLY THIN LAYER ACTIVE TOPICALLY TWICE A DAY AVOID FACE,GROIN & ARMPITS *FOR EXTERNAL USE ONLY FOR ITCHING Active Non-VA Medications Status 1) Non-VA CHOLECALCIFEROL TAB 1000 UNIT MOUTH EVERY DAY ACTIVE 2) Non-VA FISH OIL 1000MG (500MG DHA/EPA) CAP 2 GM MOUTH ACTIVE DAILY MEDICATION RECONCILIATION: completed Allergies listed below were also reviewed/updated for accuracy. ALLERGIES: Patient has answered NKA EXAM: Home BP's 112-125/69-74 per record today. Avg 119/72 VITAL SIGNS: Blood Pressure: 144/82 (05/03/2023 08:43) recheck 143/80 asymptomatic, pcp notified. Pulse: 86 (05/03/2023 08:43) 90 Respiration: 18 (05/03/2023 08:43) Temperature: 97.9 F [36.6 C] (05/03/2023 08:43) Weight: 183.3 lb [83.14 kg] (05/03/2023 08:43) Height: 68.5 in [174.0 cm] (05/03/2023 08:43) BMI: 27.5 O2 Sat: 98% (05/03/2023 08:43) Previous VS: BP: 155/93 (04/28/2022 08:01) Weight: WEIGHTS IN LAST 6 MONTHS - NONE FOUND GEN: Alert, no acute distress EENT: Pupils equal, round, reactive to light. No icterus. Ear canals patent w/o significant cerumen (hearing aids removed for exam, TM's normal,nasal passages clear w/normal appearing turbinates, oral mucosa moist,pharynx without erythema or exudate Neck: Full active ROM, no cervical lymphadenopathy,thyroid smooth, symmetric, no nodules Lungs: Clear to auscultation throughout Cardiac: Regular rate and rhythm, no murmurs, rubs or gallops, no carotid bruits, JVP: normal/not elevated Abdomen: Normal bowel sounds, soft, non tender,no hepatosplenomegaly or masses, no CVA tenderness or masses Extremities: No peripheral edema, no cyanosis Skin: No rashes or suspicious lesions on exposed surfaces, no jaundice MSK: No joint deformities noted on hands Neuro: CN's 2-12 intact, able to get on/off exam table without assistance. Strength grossly intact. Resting tremor noted during exam Psych: actively engaged in conversation, full range of affect, no psychomotor slowing, no signs of agitation TEST RESULTS: Collection time: May 03, 2023@08:01 Test Name Result Units Range --------- ------ ----- ----- PSA 1.36 ng/mL Ref: <=4.00 TSH 2.69 uIU/mL 0.35 - 4.94 SODIUM 138 mmol/L 136 - 145 POTASSIUM 3.7 mmol/L 3.5 - 5.1 CHLORIDE 102 mmol/L 98 - 107 CO2 27 mmol/L 22 - 29 ANION GAP 9 mmol/L 5 - 15 GLUCOSE 97 mg/dL 70 - 100 UREA NITROGEN 17 mg/dL 8 - 26 CREATININE 1.2 mg/dL 0.7 - 1.2 PROTEIN,TOTAL 7.1 g/dL 6.0 - 8.3 ALBUMIN 4.4 g/dL 3.5 - 5.2 CALCIUM 9.2 mg/dL 8.4 - 10.2 MAGNESIUM 1.9 mg/dL 1.6 - 2.6 BILIRUBIN, TOTAL 0.8 mg/dL 0.2 - 1.2 ALKALINE PHOSPHATASE 79 U/L 40 - 150 AST/SGOT 25 U/L Ref: <=34 ALT/SGPT 19 U/L Ref: <=55 CHOLESTEROL 192 mg/dL Ref: <=199 TRIG(NON FASTING) 358 H mg/dL Ref: <=149 .HDL 41 mg/dL Ref: >=40 LDL CALCULATION 79 mg/dL Ref: <=99 HEMOGLOBIN A1C 5.4 % 4.0 - 6.0 WBC 5.30 K/cmm 4.0 - 11.0 RBC 5.36 M/cmm 4.6 - 6.2 HGB 15.0 g/dL 13.5 - 17.9 HCT 44.9 % 41 - 54 MCV 83.8 fL 80 - 100 MCH 28.0 pg 27 - 33 MCHC 33.4 g/dL 32.0 - 37.5 RDW 12.6 % 11.5 - 14.5 PLT 201 K/cmm 150 - 400 Collection time: Apr 28, 2022@06:48 Test Name Result Units Range --------- ------ ----- ----- CHOLESTEROL 184 mg/dL Ref: <=199 TRIG(NON FASTING) 358 H mg/dL Ref: <=149 HDL 38 L mg/dL Ref: >=40 LDL CALCULATION 74 mg/dL Ref: <=99 Collection time: Apr 14, 2016@06:30 Test Name Result Units Range --------- ------ ----- ----- ANTI-HEP C(EIA) NEGATIVE Ref: NEGATIVE Patient was informed of available lab, imaging, and other study results associated with today's visit. ASSESSMENT AND PLAN: HTN, HLD, Colon adenomas, ED BPH w/urinary retention [facility]-managed care. Plan: RTC one year. [facility] (see HPI) Renewed existing meds Pamphlet provided on [facility]managed care Patient/Surrogate indicates readiness to learn, verbalizes understanding, agreement and satisfaction with the treatment plan. REMINDERS: Medication Reconciliation: Education Evaluations *Was medication education provided for NEW medications or CHANGES to medications? (including medication name, dose, route, reason for use, and potential side effects). Yes. Verbal education was provided to patient/caregiver and patient/caregiver verbalized understanding. TERATOGENIC MED & CONTRACEPTION REVIEW (Optional)... = MEDICATION RECONCILIATION = List Given: An updated medication list was provided to the patient/caregiver. Review Done: The medication list shown below was verified for accuracy and it includes all pending medications/active medications/all medications or discontinued within the last 90 days/all remote medications and non-VA medications. If a given category (i.e. remote meds) is not shown, that means that a patient doesn't have a medication(s) in that category. Allergies listed below were also reviewed/updated for accuracy. Allergies/ADR from [facility] may not display in CPRS. Use JLV MRT5 - Allergies/ADRs FACILITY ALLERGY/ADR -------- No Remote Allergy/ADR Data available for this patient [facility] No Known Allergies Active and Recently Outpatient Medications (including Supplies): Issue Date Status Last Fill Active Outpatient Medications Refills Expiration 1) AMLODIPINE BESYLATE 2.5MG TAB Qty: 90 ACTIVE Issu:03-22-23 for 90 days Sig: TAKE ONE TABLET BY Refills: 0 Last:05-04-23 MOUTH EVERY DAY FOR BLOOD PRESSURE Expr:06-20-23 2) HYDROCHLOROTHIAZIDE 12.5MG TAB Qty: 90 ACTIVE Issu:03-22-23 for 90 days Sig: TAKE ONE TABLET BY Refills: 0 Last:05-04-23 MOUTH EVERY DAY FOR BLOOD PRESSURE . Expr:06-20-23 TABLET CHANGE. PLEASE TAKE WHOLE TABLET 3) SIMVASTATIN 20MG TAB Qty: 90 for 90 ACTIVE (S) Issu:03-22-23 days Sig: TAKE ONE TABLET BY MOUTH AT Refills: 0 Last:05-30-23 BEDTIME FOR CHOLESTEROL Expr:06-20-23 Issue Date Status Last Fill Pending Outpatient Medications Refills Expiration 1) AMLODIPINE BESYLATE 2.5MG TAB Qty: 90 PENDING Sig: TAKE ONE TABLET BY MOUTH EVERY Refills: 0 DAY 2) FINASTERIDE 5MG TAB Qty: 90 Sig: TAKE PENDING ONE TABLET BY MOUTH EVERY DAY Refills: 0 3) HYDROCHLOROTHIAZIDE 12.5MG TAB Qty: 90 PENDING Sig: TAKE ONE TABLET BY MOUTH EVERY Refills: 0 DAY FOR BLOOD PRESSURE . TABLET CHANGE. PLEASE TAKE WHOLE TABLET 4) SILDENAFIL CITRATE 50MG TAB Qty: 18 PENDING Sig: TAKE ONE TABLET BY MOUTH EVERY Refills: 0 DAY NEEDED FOR ERECTIONS -TAKE 1 HOUR BEFORE ANTICIPATED SEXUAL ACTIVITY 5) SIMVASTATIN 20MG TAB Qty: 90 Sig: TAKE PENDING ONE TABLET BY MOUTH AT BEDTIME FOR Refills: 0 CHOLESTEROL 6) TAMSULOSIN HCL 0.4MG CAP Qty: 180 Sig: PENDING TAKE ONE CAPSULE BY MOUTH TWICE A DAY Refills: 0 Issue Date Status Last Fill Inactive Outpatient Medications Refills Expiration 1) AMLODIPINE BESYLATE 2.5MG TAB Qty: 90 DISCONTINUED Issu:04-28-22 for 90 days Sig: TAKE ONE TABLET BY Refills: 0 Last:02-03-23 MOUTH EVERY DAY FOR HIGH BLOOD Expr:04-29-23 PRESSURE 2) CLOTRIMAZOLE 1% TOP CREAM Qty: 30 for Issu:04-28-22 30 days Sig: APPLY THIN LAYER Refills: 8 Last:10-03-22 TOPICALLY TWICE A DAY EXTERNAL USE Expr:04-29-23 ONLY FOR FUNGAL INFECTION 3) DICLOFENAC NA 1% TOP GEL Qty: 100 for Issu:04-28-22 30 days Sig: APPLY 4 GRAMS TOPICALLY Refills: 6 Last:05-23-22 AT BEDTIME NEEDED TO AFFECTED AREA Expr:04-29-23 FOR PAIN. *USE DOSE CARD IN BOX TO MEASURE DOSE. MAX 32 GRAMS PER DAY. 4) HYDROCHLOROTHIAZIDE 12.5MG TAB Qty: 90 DISCONTINUED Issu:04-28-22 for 90 days Sig: TAKE ONE TABLET BY Refills: 0 Last:02-03-23 MOUTH EVERY DAY FOR BLOOD PRESSURE . Expr:04-29-23 TABLET CHANGE. PLEASE TAKE WHOLE TABLET 5) SILDENAFIL CITRATE 50MG TAB Qty: 18 for Issu:04-28-22 90 days Sig: TAKE ONE TABLET BY MOUTH Refills: 2 Last:08-18-22 EVERY DAY NEEDED FOR ERECTIONS Expr:04-29-23 -TAKE 1 HOUR BEFORE ANTICIPATED SEXUAL ACTIVITY 6) SIMVASTATIN 20MG TAB Qty: 90 for 90 DISCONTINUED Issu:04-28-22 days Sig: TAKE ONE TABLET BY MOUTH AT Refills: 0 Last:03-01-23 BEDTIME FOR CHOLESTEROL Expr:04-29-23 7) TRIAMCINOLONE ACETONIDE 0.1% CREAM Qty: Issu:04-28-22 80 for 30 days Sig: APPLY THIN LAYER Refills: 10 Last:05-23-22 TOPICALLY TWICE A DAY AVOID Expr:04-29-23 FACE,GROIN & ARMPITS *FOR EXTERNAL USE ONLY FOR ITCHING Start Date Active Non-VA Medications Refills Expiration 1) Non-VA CHOLECALCIFEROL TAB Si ACTIVE UNIT MOUTH EVERY DAY 2) Non-VA FISH OIL 1000MG (500MG DHA/EPA) ACTIVE CAP Si GM MOUTH DAILY 18 Total Medications Avg Risk Colorectal Cancer Screen: AVERAGE RISK colorectal cancer screening is due based on information available to this clinical reminder Patient has arranged or is choosing to arrange this care independent of and without assistance from this MD. Comment: has PCP at [facility] HTN Assess for Elevated BP>=140/90: Patient reported blood pressure Systolic BP 119 Diastolic BP 72 The patient's blood pressure is usually adequately controlled. No medication changes are indicated at this time. The patient was counseled on the importance of regular exercise and/or physical activity in the control of blood pressure. The patient was counseled on the importance of diet and weight loss/ control in the regulation of blood pressure. Time spent today, including reviewing prior VA- and non-VA notes and test results, independently obtaining history, performing a medically appropriate exam and/or evaluation, documenting clinical information in the EHR progress note, updating the EHR problem list, independently interpreting results, communicating results, counseling and educating patient/surrogate, coordinating care with other health team members, entering orders, completing reminders and coding the encounter: Total Time: 60 min Kim De León MD General Internal Medicine [facility] PACT TETO 4F /puma/ Kim De León MD Physician Signed: 05/03/2023 09:57 05/03/2023 ADDENDUM STATUS: COMPLETED CORRECTION: DATE OF SERVICE IS 05/03/23, NOT 05/02/23 (I reviewed chart and precharted on 05/02/23) /pmua/ Kim De León MD Physician Signed: 05/03/2023 09:58 KIM DE LEÓN [facility]
--- OUTSIDE RECORDS SUMMARY | 2024-04-24 06:27 | XMS_ITS | Encounter Summary ---
Author Name [facility] [place] [facility] [facility] [place] Address [address] [place] [address] Care Team Providers Care Provider Scribe Name Role Phone ELY DE LEÓN Primary Care Provider Unavailsanya e Insurance Providers: All historical and current [...] Patient's Relationship to Policy Estrada [facility] (WNR) MEDICARE ADVANTAGE MCR ([facility]) Jun 06, 2019 [id number] MARANDA SALAZAR PATIENT [facility] (WNR) MEDICARE ADVANTAGE MCR ([facility]) Nov 04, 2012 [id number] MARANDA SALAZAR PATIENT Selected Encounter This section includes the information on record at [place] for the Encounter. Date/Time Encounter Type Encounter Description Reason Provider Source Sep 08, 2023 07:45 AM HEARING AID REPAIR/MODIFYIN G AUDIOLOGY ICD-10-CM H90.3 Sensorineural hearing loss, bilateral DONOHRAOUL BUENO IHE Encounter Template Text not used by [facility] Assessments - Encounter Diagnoses This section includes the primary and secondary diagnoses documented for the Encounter. Date/Time Primary/Secondary Diagnosis Diagnosis Name Provider Source Sep 08, 2023 01:14 PM PRIMARY Sensorineural hearing loss, bilateral RAOUL LOPEZ [facility] Sep 08, 2023 01:14 PM SECONDARY Encounter for fitting and adjustment of hearing aid RAOUL LOPEZ [facility] Sep 08, 2023 01:14 PM SECONDARY Tinnitus, bilateral RAOUL LOPEZ [facility] Plan of Treatment: Future Appointments (+ 6 months) and Future Tests (+/- 45 days) The Plan of Treatment section includes future care activities for the [facility] [place] [facility] This section includes future appointments and future orders which are active, pending or scheduled. Future Appointments This section includes appointments that were scheduled to occur 6 months from the date of the Encounter, up to a maximum of 20 appointments. The data comes from all [place] treatment facilities. Appointment Date/Time Appointment Type Appointme nt Facility Name Mar 07, 2024 07:30 AM AMBULATORY - NONE [facility] Mar 07, 2024 08:30 AM AMBULATORY - MEDICINE RODY LOPEZ [facility] Social History: Smoking Status (Most current) and Tobacco Use (All prior to encounter date) This section includes the most current, and the historical, smoking and tobacco- related health factors from the [place] facility where the Encounter took place. Current Smoking Status This section includes the most current smoking, or tobacco-related health factor, from the [place] facility where the Encounter took place. Date/Time Current Smoking Status Comment Chelsey orona May 03, 2023 09:00 AM [place]-TOB[place] NEVER USED [facility] Tobacco Use History This section includes a history of the smoking, or tobacco-related health factors, that were collected on or before the date of the Encounter. The data comes from the [place] facility where the Encounter took place. Date/Time Smoking Status/Tobacco Use Comment F acility Apr 28, 2022 08:00 AM VA-TOBACCO NEVER USED [facility] Apr 02, 2021 02:18 PM VA-TOBACCO NEVER USED [facility] Mar 26, 2019 10:38 AM VA-TOBACCO NEVER USED [facility] Mar 21, 2018 10:23 AM VA-TOBACCO NEVER USED [facility] Apr 05, 2017 09:18 AM LIFETIME NON-TOBACCO USER [facility] Apr 14, 2016 08:06 AM LIFETIME NON-TOBACCO USER [facility] Mar 27, 2015 09:52 AM LIFETIME NON-TOBACCO USER [facility] Feb 20, 2014 07:48 AM LIFETIME NON-TOBACCO USER [facility] Jun 29, 2007 08:10 AM LIFETIME NON-TOBACCO USER [facility] Advance Directives: All historical and current Section Date Range: From patient's date of to the date document was created. This section includes ALL of a patient's completed or amended [place] Advance and Rescinded Directives. The entries below indicate that a directive exists for the patient, but an actual copy is not included with this document. The data comes from all [facility]. Date Advance Directives Provider Source Aug 02, 2016 ADVANCE DIRECTIVE LANDY HESS [facility] Aug 02, 2016 ADVANCE DIRECTIVE DISCUSSION THAI HESS [facility] May 25, 2005 ADVANCE DIRECTIVE YULIANA HERNANDEZ [facility] Encounter Notes: All associated encounter notes This section contains the clinical notes associated to the Encounter. Date/Time Encounter Note(s) Provider Source Sep 08, 2023 07:36 AM AUDIOLOGY NOTE: LOCAL TITLE: AUDIOLOGY CLINIC NURSING NOTE STANDARD TITLE: AUDIOLOGY NOTE DATE OF NOTE: SEP 08, 2023@07:36 ENTRY DATE: SEP 08, 2023@07:37:18 AUTHOR: ZONIA ANDREA EXP COSIGNER: URGENCY: STATUS: COMPLETED Reason for visit: Hearing exam, Patient did not bring his PAZ's today Effusion (drainage) in ear canals: No Recent Otalgia (pain) in ear canals? No Puritis in ear canals: No History of Ear Surgery: No History/Currently wears hearing aids: Yes did not bring with. Cerumen Removed: No Nurse Patient Education: Participant(s) can repeat instructions to Continue with current ear hygiene Refrain from using cotton swabs in ears Use Mineral oil therapy as needed PLAN: Follow up in: PRN (as needed) /puma/ ZONIA ANDREA LPN LICENSED PRACTICAL NURSE Signed: 09/08/2023 07:43 ZONIA ANDREA [facility] Sep 08, 2023 07:35 AM AUDIOLOGY NOTE: LOCAL TITLE: AUDIOLOGY CLINIC NOTE STANDARD TITLE: AUDIOLOGY NOTE DATE OF NOTE: SEP 08, 2023@07:35 ENTRY DATE: SEP 08, 2023@07:35:44 AUTHOR: DONOHOO,HILDA A EXP COSIGNER: URGENCY: STATUS: COMPLETED DIAGNOSIS: Encounter for examination of ears and hearing Sensorineural loss - bilateral Tinnitus - bilateral REASON FOR VISIT: HEARING EVALUATION AND HEARING AID EVALUATION, 60 MINUTES: [place] was seen in the clinic today for a comprehensive audiologic evaluation, hearing aid evaluation, and counseling utilizing a standard curriculum (30 minutes). LOCATION OF VISIT (ROOM NUMBER): 106 Personal Protective Equipment (PPE): PPE medical mask was worn by provider as recommended by [place] policy. The was last seen in this clinic on 07/03/2021. The is Service Connected for Hearing Loss / Tinnitus. was unaccompanied. 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 He also finds that the background noise is overwhelming, but sharp environmental noises are uncomfortable. The denies other otologic symptoms, including: recent ear pathology, otalgia, otorrhea, aural pressure, vertigo, changes in tinnitus but questions changes in hearing. PROCEDURES: OTOSCOPY: Both Ears: Cerumen removal performed by nursing staff just prior to this appt; see her note of this date for details. Clear canals, normal anatomy bilaterally post-procedure. TYMPANOMETRY: RIGHT EAR: Type A Pressure: Normal Compliance: Normal Volume: Normal LEFT EAR: Type A Pressure: Normal Compliance: Normal Volume: Normal AUDIOMETRICS: Air conduction, bone conduction and speech testing were completed bilaterally. Transducer: Supra-aural headphones Reliability: Good RIGHT EAR (Hz) 250 525 757 8548 1500 2000 3000 4000 6000 8000 Air: 10 5 5 15 50 55 55 50 50 55 Bone: 15 20 65 50 60 LEFT EAR (Hz) 250 625 174 8410 1500 2000 3000 4000 6000 8000 Air: 15 10 15 35 60 70 80 80 75 65 Bone: 15 35* 65 70* 70* See Audiogram Display under Tools AUDIOLOGY ROES or see [facility] Database - All thresholds are in dB HL * = Masked Threshold SRT: Spondees RIGHT EAR: 5 dB HL LEFT EAR: 15 dB HL Pure tone results were consistent with speech receptionist scheduler thresholds. WORD RECOGNITION: / word list RIGHT EAR: 88% Level: 80* dB LEFT EAR: 64% Level: 90* dB This demonstrates no significant change in word recognition ability re: 04/17/2021. SUMMARY: No significant change in hearing re: 04/17/2021. RIGHT EAR: Within normal limits through 1000 Hz sloping to a moderately-severe sensorineural hearing loss with a mild degree of word recognition difficulty (88%). Tympanogram was within normal limits, consistent with normal middle ear function. LEFT EAR: Within normal limits through 750 Hz sloping to a severe sensorineural hearing loss with a poor degree of word recognition difficulty (64%). Tympanogram was within normal limits, consistent with normal middle ear function. HEARING AID EVALUATION: Hearing aids were cleaned and checked. Replaced: receivers, domes, waxguards, retention lines. The microphone screens and battery contacts were clear. The listening check was then good for both aids. Pt was pleased with the sound quality post cleaning. REPROGRAMMING / CONFORMITY: Obtained Real Ear Measurements (REMs) in both ears. Increased gain so there was a good match to NAL-NL2 targets for soft, average and loud sounds. Pt had good tolerance to loud sounds during MPO testing with both aids. Increased all types of noise reduction in all environments. was pleased with the sound quality and will try. Discussed realistic expectations. AMPLIFICATION: - continues to be a good candidate for his current hearing aids. Informed that his current aids are only 2 years old. He is not eligible for new hearing aids for 2 years. Discussed that while there has been a new generation of Phonak aids, the differences between 's current aids and the new generation are slight. Also discussed why ITE hearing aids were not recommended for him. Counseling (30 minutes) - [place] counseled using a standard curriculum on realistic expectations associated with adjusting to hearing aids, use of the devices, VA procedures and trial period. - [place] counseled using a standard curriculum on effective communication strategies such as maintaining face to face contact when speaking, eliminating background noise when possible, and talking at a close distance. Reviewed [facility] ordering and procedures with the patient. Ordered more supplies in ROES for patient. was counseled on the cleaning, care and use of hearing aids. Answered all questions. PLAN: 1. Regular follow-up recommended to monitor for changes in hearing, or as medically indicated. 2. Return to clinic should problems with the hearing aid develop. JUANITA IS IN AGREEMENT WITH THIS PLAN /es/ Dianna OSHEA, CCC-A MAINTENANCE ENGINEER Signed: 09/08/2023 13:14 HILDA LOPEZ [facility]
--- OUTSIDE RECORDS SUMMARY | 2024-04-24 06:27 | XMS_ITS | Encounter Summary ---
Author Name [facility] [place] [facility] [place] [facility] [place] Address [address] [place] [address] Care Team Providers Care Health Informatics Specialist Name Role Phone ELY DE LEÓN Primary Care Provider Janet erwin Insurance Providers: All historical and current [...] Patient's Relationship to Policy Estrada [facility] (WNR) MEDICARE ADVANTAGE [facility] (WN) Jun 06, 2019 [id number] MARANDA SALAZAR PATIENT [facility] (WNR) MEDICARE ADVANTAGE [facility] (WNR) Nov 04, 2012 [id number] MARANDA SALAZAR PATIENT Selected Encounter This section includes the information on record at [place] for the Encounter. Date/Time Encounter Type Encounter Description Reason Pro vider Source Apr 12, 2024 09:57 AM Outpatient Encounter TELEPHONE TRIAGE IHE Encounter Template Text not used by [facility] Plan of Treatment: Future Appointments (+ 6 months) and Future Tests (+/- 45 days) The Plan of Treatment section includes future care activities for the patient from all [facility] treatmentfacilities. This section includes future appointments and future orders which are active, pending or scheduled. Future Appointments This section includes appointments that were scheduled to occur 6 months from the date of the Encounter, up to a maximum of 20 appointments. The data comes from all [facility]. Appointment Date/Time Appointment Type Appointme nt Facility Name Jun 19, 2024 02:00 PM AMBULATORY - MEDICINE RODY LOPEZ [facility] Sep 13, 2024 07:45 AM AMBULATORY - SURGERY TEX DUGAN [facility] Active, Pending, and Scheduled Orders This section includes a listing of several types of active, pending, and scheduled orders, including clinic medications orders, diagnostic test orders, procedure orders and consult orders; where the start date of the order is 45 days before the date of the Encounter or 45 days after the date of theEncounter. The data comes from all [facility]. Test Date/Time Test Type Test Details Facility Name Mar 07, 2024 08:52 AM Consult Order GASTROENTE ROLOGY OUTPT Cons Stock Or Delivery Clerk's Choice [facility] Social History: Smoking Status (Most current) and Tobacco Use (All prior to encounter date) This section includes the most current, and the historical, smoking and tobacco- related health factors from the [place] facility where the Encounter took place. Current Smoking Status This section includes the most current smoking, or tobacco-related health factor, from the [place] facility where the Encounter took place. Date/Time Current Smoking Status Comment Chelsey orona Mar 07, 2024 08:30 AM VA-TOBACCO NEVER USED [facility] Tobacco Use History This section includes a history of the smoking, or tobacco-related health factors, that were collected on or before the date of the Encounter. The data comes from the [place] facility where the Encounter took place. Date/Time Smoking Status/Tobacco Use Comment F acility May 03, 2023 09:00 AM VA-TOBACCO NEVER USED [facility] Apr 28, 2022 08:00 AM VA-TOBACCO NEVER USED [facility] Apr 02, 2021 02:18 PM VA-TOBACCO NEVER USED [facility] Mar 26, 2019 10:38 AM VA-TOBACCO NEVER USED [facility] Mar 21, 2018 10:23 AM VA-TOBACCO NEVER USED [facility] Apr 05, 2017 09:18 AM LIFETIME NON-TOBACCO USER [facility] Apr 14, 2016 08:06 AM LIFETIME NON-TOBACCO USER [facility] Mar 27, 2015 09:52 AM LIFETIME NON-TOBACCO USER [facility] Feb 20, 2014 07:48 AM LIFETIME NON-TOBACCO USER [facility] Jun 29, 2007 08:10 AM LIFETIME NON-TOBACCO USER [facility] Advance Directives: All historical and current Section Date Range: From patient's date of to the date document was created. This section includes ALL of a patient's completed or amended [place] Advance and Rescinded Directives. The entries below indicate that a directive exists for the patient, but an actual copy is not included with this document. The data comes from all [facility]. Date Advance Directives Provider Source Aug 02, 2016 ADVANCE DIRECTIVE LANDY HESS [facility] Aug 02, 2016 ADVANCE DIRECTIVE DISCUSSION THAI HESS [facility] May 25, 2005 ADVANCE DIRECTIVE [facility] Radiology Reports: +/- 30 days of the encounter Radiology Reports For cases when an order for radiology services may have been completed prior to the date of the Encounter, the report list includes the Radiology Reports that were completed up to 30 days before dateof the Encounter. For cases when an order for radiology services may have been completed after the date of the Encounter, the report list also includes the Radiology Reports that were completed up to30 days after date of the Encounter. The data comes from all [place] treatment facilities. Date/Time Radiology Report Provider Source Apr 05, 2024 07:54 AM ESOPHAGRAM VIDEO S WALLOW: MARANDA SALAZAR Arpan [id number] -[id number] M Exm Date: APR 05, 2024@07:54 Req Phys: ELY DE LEÓN Pat [facility]Req[facility]g Loc Img Loc: MAIN X-RAY Service: Unknown (Case [id number] COMPLETE) ESOPHAGRAM VIDEO SWALLOW (RAD Detailed) CPT:62585 Contrast Media : Barium CPT Modifiers : TC TECHNICAL COMPONENT Reason for Study: dysphagia to solids Clinical History: IS NOT under investigation for COVID-19 or is COVID-19 negative progressive dysphagia to solids Responsible provider name and phone number to notify for critical findings if other than user placing the order and pager listed below: User placing orders pager: [phone] LAST CREATININE 1.1 (03/07/24) Report Status: Electronically Filed Date Reported: APR 05, 2024 Report: Fluoroscopic assistance was provided to the Speech Pathology department for performance of a modified barium swallow study (MBS). Please see Speech Pathology documentation in either Speech Pathology Consult or Speech Pathology Evaluation Note in CPRS for report of findings. Impression: Fluoroscopic assistance was provided to the Speech Pathology department for performance of a modified barium swallow study (MBS). Please see Speech Pathology documentation in either Speech Pathology Consult or Speech Pathology Evaluation Note in CPRS for report of findings. VERIFIED BY: / *ELECTRONICALLY FILED* [facility] Encounter Notes: All associated encounter notes This section contains the clinical notes associated to the Encounter. Date/Time Encounter Note(s) Provider Source Apr 12, 2024 09:57 AM ADMINISTRATIVE NOT E: LOCAL TITLE: CCC: SCHEDULING ADMINISTRATION STANDARD TITLE: ADMINISTRATIVE NOTE DATE OF NOTE: APR 12, 2024@09:57 ENTRY DATE: APR 12, 2024@09:58:59 AUTHOR: MARISOL LIN EXP COSIGNER: URGENCY: STATUS: COMPLETED CCC: SCHEDULING ADMINISTRATION Has ADDENDA Primary Care Call Center Primary Care Provider Call. Please contact at the following number: Aaron with [facility] called in requesting a fax of the veterans last physical. [place] is having a procedure dont on 04/24 and aaron needs to see if the is to have another physical done. Aaron can be reached at the phone number above and the fax: This note was created by a [facility] [place] [facility] Call Center AMSA/SHIRA. Please do not alert this advertising writer by adding as a signer for future communications. Alerts are not monitored by this user, please reach out to [place] [facility] Leadership instead if indicated. /puma/ MARISOL GONCALVES [facility] EM[facility] Signed: 04/12/2024 10:03 Receipt Acknowledged By: 04/13/2024 12:39 /es/ MICHI NAYAK RN REGISTERED NURSE 04/12/2024 ADDENDUM STATUS: COMPLETED Attempted to reach Aaron at per his request. Left VOICE MAIL, encouraged Aaron to have the pt sign a Release Of Information (MUKESH) and fax it to the [facility] MUKESH dept and they will fax the requested forms to Aaron at [facility]. /puma/ ALTON GARCIAOX Signed: 04/12/2024 13:59 04/12/2024 ADDENDUM STATUS: COMPLETED Phoned [facility] , left message and encouraged Aaron to phone [facility] and fax a signed MUKESH form and fax it to [facility] Release Of Information at [phone]. Staff acknowledged. /puma/ ALTON VITALE TBOX Signed: 04/12/2024 14:06 MARISOL LIN [facility]
--- OUTSIDE RECORDS SUMMARY | 2024-04-24 06:27 | XMS_ITS | Clinical Summary ---
Author Organization [facility] Address [place], [place] [address] Care Team Providers Care Poiser Name Role Phone Francie Tang DO Primary Care Provid er Allergies No known active allergies Medications Medication Sig Dispensed Refills Start Date End Date Status simvastatin (ZOCOR) 40 mg tablet Bedtime Active Emoaa-9-LAX-EPA-Fish Oil (FISH OIL) 1,000 mg (120 mg-180 mg) cap Daily Active aspirin chewable 81 mg chewable tablet Daily Active Cholecalciferol, Vitamin D3, 2,000 unit tablet Daily Act epi loratadine (CLARITIN) 10 mg tablet Daily as needed Active Social History Tobacco Use Types Packs/Day Years Used Date Smoking Tobacco: Never Smokeless Tobacco: Never Tobacco Cessation:Counseling Given: Yes Sex and Gender Information Value Date Recorded Sex Assigned at Not on file Gender Identity Not on file Sexual Orientation Not on file Obstetrics History Last Filed Vital Signs Vital Sign Reading Time Taken Comments Blood Pressure 154/89 03/16/2019 9:18 AM CDT Pulse 77 03/16/2019 9:18 AM CDT Temperature 36.8 C (98.3 F) 03/16/2019 9:18 AM CDT Respiratory Rate - - Oxygen Saturation 96% 03/16/2019 9:18 AM CDT Inhaled Oxygen Concentration - - Weight 85.7 kg (189 lb) 03/16/2019 9:18 AM CDT Height 174 cm (5' 8.5) 01/22/2019 10:17 AM CDT Body Mass Index 28.32 01/22/2019 10:17 AM CDT Plan of Treatment Health Maintenance Due Date Last Done Comments Tdap 11/21/1958 Depression screening for age 12+ 1959 Hepatitis C screening for age 18-79 11/21/1965 Tetanus booster 1967 Zoster (shingles) series for age 50+ (1 of 2) 11/21/18 98 Medicare Wellness for age 65+ 11/21/2012 Pneumococcal series for age 65+ (1 of 1 - PCV) 013 BMI (ht and wt on same day) for age 18+ 01/23/2020 0 01/22/2019 RSV vaccine for adults or pr egnancy (1 - 1-dose 75+ series) 11/21/2022 COVID-19 vaccine series ( - 2023-25 season) 4 Influenza for age 65+ 02/05/2024 Care Teams Poiser Relationship Specialty Start Date End Date Francie Tang DO PCP - General Family Practice 12/24/13
--- OUTSIDE RECORDS SUMMARY | 2024-04-24 06:27 | XMS_ITS | Encounter Summary ---
Author Name [facility] [place] [facility] [place] [facility] [place] Address [address] [place] [address] Care Team Providers Care Cotton Tier Name Role Phone ELY DE LEÓN Primary [...] Patient's Relationship to Policy Estrada [facility] (WNR) MEDICARE ADVANTAGE [facility] (WN) Jun 06, 2019 [id number] [phone] MARANDA SALAZAR PATIENT [facility] (WNR) MEDICARE ADVANTAGE [facility] (WN) Nov 04, 2012 RIVAAB [id number] MARANDA SALAZAR PATIENT Selected Encounter This section includes the information on record at [place] for the Encounter. Date/Time Encounter Type Encounter Description Reason Pro vider Source Mar 06, 2024 10:26 AM Outpatient Encounter PRIMARY CARE/MEDICINE IHE Encounter Template Text not used by [place] Plan of Treatment: Future Appointments (+ 6 [...] 20 appointments. The data comes from all [facility]. Appointment Date/Time Appointment Type Appointme nt Facility Name Mar 07, 2024 07:30 AM AMBULATORY - NONE [facility] Mar 07, 2024 08:30 AM AMBULATORY - MEDICINE [facility] Apr 05, 2024 08:00 AM AMBULATORY - NONE [facility] Apr 05, 2024 08:30 AM AMBULATORY - REHAB MEDICIN E [facility] Jun 19, 2024 02:00 PM AMBULATORY - MEDICINE [facility] Active, Pending, and Scheduled Orders This section includes a listing of several types of active, pending, and scheduled orders, including clinic medications orders, diagnostic test orders, procedure orders and consult orders; where the start date of the order is 45 days before the date of the Encounter or 45 days after the date of theEncounter. The data comes from all [facility]. Test Date/Time Test Type Test Details Facility Name Mar 07, 2024 08:52 AM Consult Order GASTROENTE ROLOGY OUTPT Cons Property Officer's Choice [facility] Lab Results: +/- 30 days of the encounter This section includes the Chemistry and Hematology Lab Results on record with [place] for the patient. Radiology Reports and Pathology Reports are provided separately, in subsequent sections. Lab Results This section contains the Chemistry/Hematology Results that were resulted 30 days before or 30 daysafter the date of the Encounter. Date/Time Source Result Type Result - Unit Interpretation Reference Range Comment Mar 07, 2024 07:10 AM [facility] HEMOGLOBIN A1C Specimen Type: BLOOD Comment: Values obtained from A1C measurements can vary. For typical A1C assays, a reported value of 7.0 could actually be between 6.7 and 7.3 if measured by a reference method. A reported value of 9.0 could actually be between 8.7 and 9.3. Ref: http://www.ngsp .org/CAPdata.as p Ordering Provider: ELY DE LEÓN Report Released Date/Time: May 03, 2023 09:40 AM Reporting Lab: [facility] [id number] Performing Lab: [facility] [id number] HEMOGLOBIN A1C 5.4 4.0-6.0 Mar 07, 2024 07:10 AM [facility] PSA Specimen Type: SERUM No comment entered. Ordering Provider: ELY DE LEÓN Report Released Date/Time: May 03, 2023 09:40 AM Reporting Lab: [facility] [id number] Performing Lab: [facility] [id number] PSA 1.13 ng/mL <4.00 Mar 07, 2024 07:10 AM [facility] LIPID PANEL,NON-FASTING Specimen Type: PLASMA Comment: Elevated triglyceride result from a non-fasting specimen should be interpreted with caution. A fasting panel is recommended for accurate triglycerides when trigs are >200 from a non-fasting specimen. Ordering Provider: ELY DE LEÓN Report Released Date/Time: May 03, 2023 09:40 AM Reporting Lab: [facility] [id number] Performing Lab: [facility] [phone] CHOLESTEROL 153 mg/dL <199 .HDL 39 mg/dL L >40 LDL CALCULATION 72 mg/dL <99 VLDL CALCULATION 42 mg/dL H <29 NON HDL CHOLESTEROL 114 mg/dL <129 TRIG(NON FASTING) 210 mg/dL H <149 Mar 07, 2024 07:10 AM [facility] BASIC METABOLIC PANEL+MG Specimen Type: PLASMA Comment: Elevated triglyceride result from a non-fasting specimen should be interpreted with caution. A fasting panel is recommended for accurate triglycerides when trigs are >200 from a non-fasting specimen. Ordering Provider: ELY DE LEÓN Report Released Date/Time: May 03, 2023 09:40 AM Reporting Lab: [facility] [id number] Performing Lab: [facility] [id number] CREATININE 1.1 mg/dL 0.7-1.2 UREA NITROGEN 24 mg/dL 8-26 GLUCOSE 97 mg/dL 70-100 SODIUM 141 mmol/L 136-145 POTASSIUM 3.8 mmol/L 3.5-5.1 CHLORIDE 106 mmol/L 98-107 CO2 27 mmol/L 22-29 CALCIUM 9.2 mg/dL 8.4-10.2 MAGNESIUM 2.1 mg/dL 1.6-2.6 ANION GAP 8 mmol/L 5-15 .CREAT EGFR(CKD-EPI) 70 >60 Social History: Smoking Status (Most current) and Tobacco Use (All prior to encounter date) This section includes the most current, and the historical, smoking and tobacco- related health factors from the [place] facility where the Encounter took place. Current Smoking Status This section includes the most current smoking, or tobacco-related health factor, from the [place] facility where the Encounter took place. Date/Time Current Smoking Status Comment Chelsey ity May 03, 2023 09:00 AM VA-TOBACCO NEVER USED [facility] Tobacco Use History This section includes a history of the smoking, or tobacco-related health factors, that were collected on or before the date of the Encounter. The data comes from the [place] facility where the Encounter took place. Date/Time Smoking Status/Tobacco Use Comment F acility Apr 28, 2022 08:00 AM [place]-TOBACCO NEVER USED [facility] Apr 02, 2021 02:18 PM VA-TOBACCO NEVER USED [facility] Mar 26, 2019 10:38 AM VA-TOBACCO NEVER USED [facility] Mar 21, 2018 10:23 AM VA-TOBACCO NEVER USED [facility] Apr 05, 2017 09:18 AM LIFETIME NON-TOBACCO USER [facility] Apr 14, 2016 08:06 AM LIFETIME NON-TOBACCO USER [facility] Mar 27, 2015 09:52 AM LIFETIME NON-TOBACCO USER [facility] Feb 20, 2014 07:48 AM LIFETIME NON-TOBACCO USER [facility] Jun 29, 2007 08:10 AM LIFETIME NON-TOBACCO USER [facility] Advance Directives: All historical and current Section Date Range: From patient's date of to the date document was created. This section includes ALL of a patient's completed or amended [place] Advance and Rescinded Directives. The entries below indicate that a directive exists for the patient, but an actual copy is not included with this document. The data comes from all [facility]. Date Advance Directives Provider Source Aug 02, 2016 ADVANCE DIRECTIVE LANDY HESS [facility] Aug 02, 2016 ADVANCE DIRECTIVE DISCUSSION THAI HESS [facility] May 25, 2005 ADVANCE DIRECTIVE [facility]Z [facility] Radiology Reports: +/- 30 days of [...] the Encounter. The data comes from all [place] treatment facilities. Date/Time Radiology Report Provider Source Apr 05, 2024 07:54 AM ESOPHAGRAM VIDEO S WALLOW: MARANDA SALAZAR [id number] [id number] M Exm Date: APR 05, 2024@07:54 Req Phys: ELY DE LEÓN Pat Loc: [facility] PACT TETO WH 4F (Req'g Loc Img Loc: MAIN X-RAY Service: Unknown (Case [id number] COMPLETE) ESOPHAGRAM VIDEO SWALLOW (RAD Detailed) CPT:04196 Contrast Media : Barium CPT Modifiers : TC TECHNICAL COMPONENT Reason for Study: dysphagia to solids Clinical History: [place] IS NOT under investigation for COVID-19 or is COVID-19 negative progressive dysphagia to solids Responsible provider name and phone number to notify for critical findings if other than user placing the order and pager listed below: User placing orders pager: [phone] LAST CREATININE 1.1 (03/07/24) Report Status: Electronically [...] of findings. VERIFIED BY: / *ELECTRONICALLY FILED* [facility] Encounter Notes: All associated encounter notes This section contains the clinical notes associated to the Encounter. Date/Time Encounter Note(s) Provider Source Mar 20, 2024 08:11 AM INTERNAL MEDICINE OUTPATIENT NOTE: LOCAL TITLE: MEDICINE CLINIC NURSING NOTE STANDARD TITLE: INTERNAL MEDICINE OUTPATIENT NOTE DATE OF NOTE: MAR 20, 2024@08:11:42 ENTRY DATE: MAR 20, 2024@08:11:42 AUTHOR: SHAUNA BOND EXP COSIGNER: URGENCY: STATUS: COMPLETED Patient prescreened ahead of appointment. No further actions are needed. Assessments were sent to the via text/email. These assessments were completed by MARANDA SALAZAR on their own device on 03/06/2024 10:26:15 AM. HOMELESSNESS/FOOD INSECURITY SCREEN (HFIS) HOMELESSNESS The patient responded to the questions below as follows: In the past 2 months, have you been living in stable housing that you own, rent, or stay in as part of a household: Yes - Living in stable housing Are you worried or concerned that in the next 2 months you may NOT have stable housing that you own, rent, or stay in as part of a household: No - Not worried about housing Would you like to be REFERRED to talk more about your housing situation: N/A FOOD INSECURITY The patient responded to the items below as follows: Within the past 12 months, you worried whether your food would run out before you got money to buy more: Never true Within the past 12 months, the food you bought just didn't last and you didn't have money to get more: Never true /puma/ SHAUNA BOND LPN LPN Signed: 03/20/2024 08:55 SHAUNA BOND [facility]
--- OUTSIDE RECORDS SUMMARY | 2024-04-24 06:27 | XMS_ITS | Encounter Summary ---
Author Name [facility] Organization [facility] Address [address] [place] [address] Care Team Providers Care Financial Services Specialist Name Role Phone ELY DE LEÓN [...] Patient's Relationship to Policy Estrada [facility] (WNR) MEDICARE ADVANTAGE [facility] (WNR) Jun 06, 2019 [id number] [phone] MARANDA VALLEJO PATIENT [facility] (WNR) MEDICARE ADVANTAGE [facility] (WNR) Nov 04, 2012 [id number] MARANDA SALAZAR PATIENT Selected Encounter This section includes the information on record at ID for the Encounter. Date/Time Encounter Type Encounter Description Reason Pro vider Source Feb 07, 2024 12:00 AM Outpatient Encounter EVENT (HISTORICAL) IHE Encounter Template Text not used by ID Plan of Treatment: Future Appointments (+ 6 [...] 20 appointments. The data comes from all [facility]. Appointment Date/Time Appointment Type Appointme nt Facility Name Mar 07, 2024 07:30 AM AMBULATORY - NONE [facility] Mar 07, 2024 08:30 AM AMBULATORY - MEDICINE [facility] Apr 05, 2024 08:00 AM AMBULATORY - NONE [facility] Apr 05, 2024 08:30 AM AMBULATORY - REHAB MEDICIN E [facility] Jun 19, 2024 02:00 PM AMBULATORY - MEDICINE [facility] Active, Pending, and Scheduled Orders This section includes a listing of several types of active, pending, and scheduled orders, including clinic medications orders, diagnostic test orders, procedure orders and consult orders; where the start date of the order is 45 days before the date of the Encounter or 45 days after the date of theEncounter. The data comes from all [facility]. Test Date/Time Test Type Test Details Facility Name Mar 07, 2024 08:52 AM Consult Order GASTROENTE ROLOGY OUTPT Cons Paper Box [facility] Lab Results: +/- 30 days of the encounter This section includes the Chemistry and Hematology Lab Results on record with ID for the patient. Radiology Reports and Pathology Reports are provided separately, in subsequent sections. Lab Results This section contains the Chemistry/Hematology Results that were resulted 30 days before or 30 daysafter the date of the Encounter. Date/Time Source Result Type Result - Unit Interpretation Reference Range Comment Mar 07, 2024 07:10 AM [facility] HEMOGLOBIN A1C Specimen Type: BLOOD Comment: Values [...] May 03, 2023 09:40 AM Reporting Lab: [facility] [id number] Performing Lab: [facility] [id number] HEMOGLOBIN A1C 5.4 4.0-6.0 Mar 07, 2024 07:10 AM [facility] PSA Specimen Type: SERUM No comment entered. Ordering Provider: ELY DE LEÓN Report Released Date/Time: May 03, 2023 09:40 AM Reporting Lab: [facility] [id number] Performing Lab: [facility] [id number] PSA 1.13 ng/mL <4.00 Mar 07, 2024 07:10 AM [facility] LIPID PANEL,NON-FASTING Specimen Type: PLASMA Comment: Elevated triglyceride result from a non-fasting specimen should be interpreted with caution. A fasting panel is recommended for accurate triglycerides when trigs are >200 from a non-fasting specimen. Ordering Provider: ELY DE LEÓN Report Released Date/Time: May 03, 2023 09:40 AM Reporting Lab: [facility] [id number] Performing Lab: [facility] [id number] CHOLESTEROL 153 mg/dL <199 .HDL 39 mg/dL L >40 LDL CALCULATION 72 mg/dL <99 VLDL CALCULATION 42 mg/dL H <29 NON HDL CHOLESTEROL 114 mg/dL <129 TRIG(NON FASTING) 210 mg/dL H <149 Mar 07, 2024 07:10 AM [facility] BASIC METABOLIC PANEL+MG Specimen Type: PLASMA Comment: Elevated triglyceride result from a non-fasting specimen should be interpreted with caution. A fasting panel is recommended for accurate triglycerides when trigs are >200 from a non-fasting specimen. Ordering Provider: ELY DE LEÓN Report Released Date/Time: May 03, 2023 09:40 AM Reporting Lab: [facility] [id number] Performing Lab: [facility] [id number] CREATININE 1.1 mg/dL 0.7-1.2 UREA NITROGEN 24 mg/dL 8-26 GLUCOSE 97 mg/dL 70-100 SODIUM 141 mmol/L 136-145 POTASSIUM 3.8 mmol/L 3.5-5.1 CHLORIDE 106 mmol/L 98-107 CO2 27 mmol/L 22-29 CALCIUM 9.2 mg/dL 8.4-10.2 MAGNESIUM 2.1 mg/dL 1.6-2.6 ANION GAP 8 mmol/L 5-15 .CREAT EGFR(CKD-EPI) 70 >60 Immunizations: All administered on the encounter date This section contains immunizations associated to the Encounter. Immunization Series Date Issued Reaction Comments COVID-19 (MODERNA), MRNA, LN P-S, PF, 50 MCG/0.5 ML (AGES 12+ YEARS) Feb 07, 2024 Social History: Smoking Status (Most current) and Tobacco Use (All prior to encounter date) This section includes the most current, and the historical, smoking and tobacco- related health factors from the ID facility where the Encounter took place. Current Smoking Status This section includes the most current smoking, or tobacco-related health factor, from the ID facility where the Encounter took place. Date/Time Current Smoking Status Comment Chelsey ity May 03, 2023 09:00 AM ID-TOBACCO NEVER USED [facility] Tobacco Use History This section includes a history of the smoking, or tobacco-related health factors, that were collected on or before the date of the Encounter. The data comes from the ID facility where the Encounter took place. Date/Time Smoking Status/Tobacco Use Comment F acility Apr 28, 2022 08:00 AM VA-TOBACCO NEVER USED [facility] Apr 02, 2021 02:18 PM VA-TOBACCO NEVER USED [facility] Mar 26, 2019 10:38 AM VA-TOBACCO NEVER USED [facility] Mar 21, 2018 10:23 AM VA-TOBACCO NEVER USED [facility] Apr 05, 2017 09:18 AM LIFETIME NON-TOBACCO USER [facility] Apr 14, 2016 08:06 AM LIFETIME NON-TOBACCO USER [facility] Mar 27, 2015 09:52 AM LIFETIME NON-TOBACCO USER [facility] Feb 20, 2014 07:48 AM LIFETIME NON-TOBACCO USER [facility] Jun 29, 2007 08:10 AM LIFETIME NON-TOBACCO USER [facility] Advance Directives: All historical and current Section Date Range: From patient's date of to the date document was created. This section includes ALL of a patient's completed or amended ID Advance and Rescinded Directives. The entries below indicate that a directive exists for the patient, but an actual copy is not included with this document. The data comes from all [facility]. Date Advance Directives Provider Source Aug 02, 2016 ADVANCE DIRECTIVE LANDY HESS [facility] Aug 02, 2016 ADVANCE DIRECTIVE DISCUSSION THAI HESS [facility] May 25, 2005 ADVANCE DIRECTIVE YULIANA HERNANDEZ [facility]
--- OUTSIDE RECORDS SUMMARY | 2024-04-24 06:27 | XMS_ITS | Encounter Summary ---
Author Name [facility] [place] [facility] [place] Organization [facility] [place] Address [address] [place] [address] Care Team Providers Care Business Support Professional Name Role Phone KIM DE LEÓN Primary [...] Patient's Relationship to Policy Estrada [facility] (WNR) MEDICARE [facility] Jun 06, 2019 [id number] [phone] MARANDA SALAZAR PATIENT [facility] (WNR) MEDICARE [facility] Nov 04, 2012 [id number] MARANDA SALAZAR PATIENT Selected Encounter This section includes the information on record at [place] for the Encounter. Date/Time Encounter Type Encounter Description Reason Provider Source Mar 07, 2024 08:30 AM OFFICE O/P EST HI 40 MIN PRIMARY CARE/MEDICINE ICD-10-CM R13.10 Dysphagia, unspecified KIM DE LEÓN IHArpan Encounter Template Text not used by [place] Assessments - Encounter Diagnoses This section includes the primary and secondary diagnoses documented for the Encounter. Date/Time Primary/Secondary Diagnosis Diagnosis Name Provider Source Mar 07, 2024 09:08 AM PRIMARY Dysphagia, unspecified [facility] Mar 07, 2024 09:08 AM SECONDARY Benign prostatic hyperplasia with lower urinary tract symp [facility] Mar 07, 2024 09:08 AM SECONDARY [facility] Mar 07, 2024 09:08 AM SECONDARY Encounter for immunization [facility] Mar 07, 2024 09:08 AM SECONDARY Essential (primary) hypertension [facility] Mar 07, 2024 09:08 AM SECONDARY Hyperlipidemia, unspecified [facility] Mar 07, 2024 09:08 AM SECONDARY Male erectile dysfunction, unspecified [facility] Mar 07, 2024 09:08 AM SECONDARY Polyp of [facility] Mar 07, 2024 09:08 AM SECONDARY Tremor, unspecified [facility] Plan of Treatment: Future Appointments (+ 6 months) and Future Tests (+/- 45 days) The Plan of Treatment section includes future care activities for the patient from all [place] [facility]. This section includes future appointments and future orders which are active, pending or scheduled. Future Appointments This section includes appointments that were scheduled to occur 6 months from the date of the Encounter, up to a maximum of 20 appointments. The data comes from all [facility]. Appointment Date/Time Appointment Type Appointme nt Facility Name Apr 05, 2024 08:00 AM AM[facility]ORY - NONE [facility] Apr 05, 2024 08:30 AM AMBULATORY - REHAB MEDICIN [facility] Jun 19, 2024 02:00 PM AMBULATORY - MEDICINE [facility] Active, Pending, and Scheduled Orders This section includes a listing of several types of active, pending, and scheduled orders, including clinic medications orders, diagnostic test orders, procedure orders and consult orders; where the start date of the order is 45 days before the date of the Encounter or 45 days after the date of theEncounter. The data comes from all [facility]. Test Date/Time Test Type Test Details Facility Name Mar 07, 2024 08:52 AM Consult Order GASTROENTE ROLOGY OUTPT Cons Skip Tracer's Choice [facility] Lab Results: +/- 30 days of the encounter This section includes the Chemistry and Hematology Lab Results on record with [place] for the patient. Radiology Reports and Pathology Reports are provided separately, in subsequent sections. Lab Results This section contains the Chemistry/Hematology Results that were resulted 30 days before or 30 daysafter the date of the Encounter. Date/Time Source Result Type Result - Unit Interpretation Reference Range Comment Mar 07, 2024 07:10 AM [facility] HEMOGLOBIN A1C Specimen Type: BLOOD Comment: Values obtained from A1C measurements can vary. For typical A1C assays, a reported value of 7.0 could actually be between 6.7 and 7.3 if measured by a reference method. A reported value of 9.0 could actually be between 8.7 and 9.3. Ref: http://www.ngsp .org/CAPdata.as p Ordering Provider: KIM DE LEÓN Report Released Date/Time: May 03, 2023 09:40 AM Reporting Lab: [facility] [id number] Performing Lab: [facility] [id number] HEMOGLOBIN A1C 5.4 4.0-6.0 Mar 07, 2024 07:10 AM [facility] PSA Specimen Type: SERUM No comment entered. Ordering Provider: KIM DE LEÓN Report Released Date/Time: May 03, 2023 09:40 AM Reporting Lab: [facility] [id number] Performing Lab: [facility] [id number] PSA 1.13 ng/mL <4.00 Mar 07, 2024 07:10 AM [facility] LIPID PANEL,NON-FASTING Specimen Type: PLASMA Comment: Elevated triglyceride result from a non-fasting specimen should be interpreted with caution. A fasting panel is recommended for accurate triglycerides when trigs are >200 from a non-fasting specimen. Ordering Provider: KIM DE LEÓN Report Released Date/Time: May 03, 2023 09:40 AM Reporting Lab: [facility] [id number] Performing Lab: [facility] [phone] CHOLESTEROL 153 mg/dL <199 .HDL 39 mg/dL L >40 LDL CALCULATION 72 mg/dL <99 VLDL CALCULATION 42 mg/dL H <29 NON HDL CHOLESTEROL 114 mg/dL <129 TRIG(NON FASTING) 210 mg/dL H <149 Mar 07, 2024 07:10 AM [facility] BASIC METABOLIC PANEL+MG Specimen Type: PLASMA Comment: Elevated triglyceride result from a non-fasting specimen should be interpreted with caution. A fasting panel is recommended for accurate triglycerides when trigs are >200 from a non-fasting specimen. Ordering Provider: KIM DE LEÓN Report Released Date/Time: May 03, 2023 09:40 AM Reporting Lab: [facility] [id number] Performing Lab: [facility] [id number] CREATININE 1.1 mg/dL 0.7-1.2 UREA NITROGEN 24 mg/dL 8-26 GLUCOSE 97 mg/dL 70-100 SODIUM 141 mmol/L 136-145 POTASSIUM 3.8 mmol/L 3.5-5.1 CHLORIDE 106 mmol/L 98-107 CO2 27 mmol/L 22-29 CALCIUM 9.2 mg/dL 8.4-10.2 MAGNESIUM 2.1 mg/dL 1.6-2.6 ANION GAP 8 mmol/L 5-15 .CREAT EGFR(CKD-EPI) 70 >60 Vital Signs: All taken on the encounter date This section contains inpatient and outpatient Vital Signs collected on the date of the Encounter. Date/Time Temperature Pulse Blood Pressure Respiratory Rate SP02 Pain Height Weight Body Mass Index Source Mar 07, 2024 09:05 AM 97.8 64 138/78 16 99 0 69 181 27 [facility] Immunizations: All administered on the encounter date This section contains immunizations associated to the Encounter. Immunization Series Date Issued Reaction Comments INFLUENZA, HIGH-DOSE, TRIVALENT, PF Mar 07 Social History: Smoking Status (Most current) and Tobacco Use (All prior to encounter date) This section includes the most current, and the historical, smoking and tobacco- related health factors from the [facility] where the Encounter took place. Current Smoking Status This section includes the most current smoking, or tobacco-related health factor, from the [facility] where the Encounter took place. Date/Time Current Smoking Status Comment Chelsey orona Mar 07, 2024 08:30 AM VA-TOBACCO NEVER USED [facility] Tobacco Use History This section includes a history of the smoking, or tobacco-related health factors, that were collected on or before the date of the Encounter. The data comes from the [place] facility where the Encounter took place. Date/Time Smoking Status/Tobacco Use Comment F acility May 03, 2023 09:00 AM VA-TOBACCO NEVER USED [facility] Apr 28, 2022 08:00 AM VA-TOBACCO NEVER USED [facility] Apr 02, 2021 02:18 PM VA-TOBACCO NEVER USED [facility] Mar 26, 2019 10:38 AM VA-TOBACCO NEVER USED [facility] Mar 21, 2018 10:23 AM VA-TOBACCO NEVER USED [facility] Apr 05, 2017 09:18 AM LIFETIME NON-TOBACCO USER [facility] Apr 14, 2016 08:06 AM LIFETIME NON-TOBACCO USER [facility] Mar 27, 2015 09:52 AM LIFETIME NON-TOBACCO USER [facility] Feb 20, 2014 07:48 AM LIFETIME NON-TOBACCO USER [facility] Jun 29, 2007 08:10 AM LIFETIME NON-TOBACCO USER [facility] Advance Directives: All historical and current Section Date Range: From patient's date of to the date document was created. This section includes ALL of a patient's completed or amended [place] Advance and Rescinded Directives. The entries below indicate that a directive exists for the patient, but an actual copy is not included with this document. The data comes from all [facility]. Date Advance Directives Provider Source Aug 02, 2016 ADVANCE DIRECTIVE LANDY HESS [facility] Aug 02, 2016 ADVANCE DIRECTIVE DISCUSSION THIA HESS [facility] May 25, 2005 ADVANCE DIRECTIVE YULIANA HERNANDEZ [facility] Radiology Reports: +/- 30 days of the [...] the Encounter. The data comes from all [place] treatment facilities. Date/Time Radiology Report Provider Source Apr 05, 2024 07:54 AM ESOPHAGRAM VIDEO S BENNIE: MARANDA SALAZAR [id number] [phone] M Exm Date: APR 05, 2024@07:54 Req Phys: KIM DE LEÓN Pat Loc: [email or web address] PACT FERN WH 4F (Req'g Loc Img Loc: MAIN X-RAY Service: Unknown (Case [id number] COMPLETE) ESOPHAGRAM VIDEO SWALLOW (RAD Detailed) CPT:33304 Contrast Media : Barium CPT Modifiers : TC TECHNICAL COMPONENT Reason for Study: dysphagia to solids Clinical History: IS NOT under investigation for COVID-19 or is COVID-19 negative progressive dysphagia to solids Responsible provider name and phone number to notify for critical findings if other than user placing the order and pager listed below: User placing orders pager: [phone] LAST CREATININE 1.1 (03/07/24) Report Status: Electronically [...] of findings. VERIFIED BY: / *ELECTRONICALLY FILED* [facility] Encounter Notes: All associated encounter notes This section contains the clinical notes associated to the Encounter. Date/Time Encounter Note(s) Provider Source Mar 07, 2024 01:15 PM LETTERS: LOCAL TITLE: FOLLOW UP RESULTS LETTER STANDARD TITLE: LETTERS DATE OF NOTE: MAR 07, 2024@13:15 ENTRY DATE: MAR 07, 2024@13:15:33 AUTHOR: KIM DE LEÓN COSIGNER: URGENCY: STATUS: COMPLETED [facility] [address] [place] [address] Mar MARANDA SALAZAR [address] [facility] [place] [address] Dear Toyah: I am writing to inform you of the results of testing that you had done recently at the [facility]. Collection time: Mar 07, 2024@07:10 Test Name Result Units Range --------- ------ ----- ----- PSA 1.13 ng/mL Ref: <=4.00 SODIUM 141 mmol/L 136 - 145 POTASSIUM 3.8 mmol/L 3.5 - 5.1 CHLORIDE 106 mmol/L 98 - 107 CO2 27 mmol/L 22 - 29 ANION GAP 8 mmol/L 5 - 15 GLUCOSE 97 mg/dL 70 - 100 UREA NITROGEN 24 mg/dL 8 - 26 CREATININE 1.1 mg/dL 0.7 - 1.2 CALCIUM 9.2 mg/dL 8.4 - 10.2 MAGNESIUM 2.1 mg/dL 1.6 - 2.6 CHOLESTEROL 153 mg/dL Ref: <=199 TRIG(NON FASTING) 210 H mg/dL Ref: <=149 .HDL 39 L mg/dL Ref: >=40 LDL CALCULATION 72 mg/dL Ref: <=99 HEMOGLOBIN A1C 5.4 % 4.0 - 6.0 If you have any further questions or problems, please contact our nursing staff or provider at the following number: [phone]. Sincerely, Kim De León MD Physician KIM DE LEÓN [facility] Mar 07, 2024 09:08 AM INTERNAL MEDICINE OUTPATIENT NOTE: LOCAL TITLE: MEDICINE CLINIC NURSING NOTE STANDARD TITLE: INTERNAL MEDICINE OUTPATIENT NOTE DATE OF NOTE: MAR 07, 2024@09:08 ENTRY DATE: MAR 07, 2024@09:08:58 AUTHOR: GALINA ALTAMIRANO EXP COSIGNER: URGENCY: STATUS: COMPLETED TYPE OF VISIT: Appointment Check In Type of appointment: In-person appointment REASON FOR VISIT: Routine check up ALLERGIES: Patient has answered NKA VITAL SIGNS: Blood Pressure: 138/78 (03/07/2024 09:05) Pulse: 64 (03/07/2024 09:05) Respiration: 16 (03/07/2024 09:05) Temperature: 97.8 F [36.6 C] (03/07/2024 09:05) Weight: 181 lb [82.10 kg] (03/07/2024 09:05) Height: 69 in [175.3 cm] (03/07/2024 09:05) BMI: 26.8 O2 Sat: 99% (03/07/2024 09:05) Pain: 0 (03/07/2024 09:05) PAIN SCREEN: Patient is not having significant pain that they wish to discuss with their provider today. MEDICATION Over the Counter/Herbal Medications: The patient states that they take some outside medications and/or herbals. Tobacco Use Screening: The patient has never used tobacco. Homelessness/Food Insecurity Screen: In the past 2 months, have you been living in stable housing that you own, rent, or stay in as part of a household? Yes - Living in stable housing. Are you worried or concerned that in the next 2 months you may NOT have stable housing that you own, rent, or stay in as part of a household? No - Not worried about housing near future The reports the following: Within the past 12 months, you worried whether your food would run out before you got money to buy more. Never true Within the past 12 months, the food you bought just didn't last and you didn't have money to get more. Never true Food Assistance Programs [facility] Food Assistance Programs [facility] Annual Screening: Whole Health Screen is due OR due soon (within 90 days). Whole Health Screening Why is addressing your overall health important to you? stay healthy What do you want your health for (why do you want to be healthy)? long live Fall History Screen During the past 12 months, have you had any falls? Patient does not report any falls in the past 12 months. MEDICATIONS: Patient is on one of the following medication classes: Antihypertensives, Antidepressants, Antipsychotics, Diuretics, or Controlled substance medication used for pain. Script Talk Screen Are you able to read your prescription bottles with your glasses, magnifiers or other aids? Yes or patient not taking any prescriptions. Skin Screen Patient reports any current pressure ulcers, a history of pressure ulcers, or a wound from a biomedical engineering supervisor or Patient is bed-confined or a wheelchair-user or Patient requires assistance to transfer/change position No, Skin Screen is Negative Home Abuse/Violence Screen Is your home free of abuse and violence? Yes MOVE! Program Screen Body Mass Index (BMI)= 26.8 [place]: Collection DT Specimen Test Name Result Units Ref Range 03/07/2024 07:10 BLOOD !! HEMOGLOBIN A1C 5.4 % 4.0 - 6.0 !! Indicates COMMENTS AVAILABLE...Refer to Interim Lab Report. [facility] Hgb A1C: No data available [place] Hgb A1C: No data available Point of Care Hgb A1C: POC HGB A1C____ Outpatient Nutrition Screen Body Mass Index (BMI)= 26.8 [place]: Collection DT Specimen Test Name Result Units Ref Range 03/07/2024 07:10 BLOOD !! HEMOGLOBIN A1C 5.4 % 4.0 - 6.0 !! Indicates COMMENTS AVAILABLE...Refer to Interim Lab Report. [place] Hgb A1C: No data available [place] Hgb A1C: No data available Point of Care Hgb A1C: POC HGB A1C____ Is patient's BMI less than 18.5? No Does patient have swallowing, coughing, or chewing problems affecting oral intake? No Has patient experienced unplanned weight loss or gain greater than 10 pounds over the last 2 months? No Is patient's Hgb A1C (Glycosylated Hemoglobin) greater than 9.5? No Is patient receiving Total Parenteral Nutrition (TPN) or Tube Feedings? No Patient Health Education Screen BARRIERS/SPECIAL NEEDS: No barriers identified PREFERRED STYLE OF LEARNING: No preference stated Client Assistive Service ([place]) Screen Does the patient require assistance with outpatient visit? No Influenza Immunization: Influenza, High-Dose, Trivalent, Preservative Free (Fluzone-Syringe) Administered: INFLUENZA, HIGH-DOSE, TRIVALENT, PF Date Administered: Mar 07, 2024 08:30 Associate Professor Of Chemistry: SANOFI PASTEUR Lot: [id number] Exp Date: Dec 03, 2024 Admin Route/Site: INTRAMUSCULAR/LEFT DELTOID Dosage: 0.5mL Vaccine Information Statement(s): INFLUENZA(FLU) VACC(INACTIVATED OR RECOMBINANT)VIS Jan 09, 2021 ([employer] [place]) Order By: Policy Administered By: Galina Altamirano The Influenza Vaccine Information Statement (VIS) was reviewed with the patient/caregiver which lists the benefits and risks of the vaccine and the risks of not receiving the Influenza vaccine. The patient/caregiver denied any prior severe reaction to this vaccine or its components or a severe allergic reaction, such as anaphylaxis, to any vaccine or any injectable therapy. The patient/caregiver gave verbal consent to receive the vaccine. /puma/ GALINA ALTAMIRANO L.P.N, LPN Signed: 03/07/2024 09:15 GALINA ALTAMIRANO [facility] Mar 07, 2024 08:15 AM INTERNAL MEDICINE NOTE: LOCAL TITLE: MEDICINE CLINIC NOTE STANDARD TITLE: INTERNAL MEDICINE NOTE DATE OF NOTE: MAR 07, 2024@08:15 ENTRY DATE: MAR 03, 2024@20:03:22 AUTHOR: KIM DE LEÓN COSIGNER: URGENCY: STATUS: COMPLETED SUBJECT: CLINIC VISIT GENERAL INTERNAL MEDICINE CLINIC PROGRESS NOTE MARANDA SALAZAR is a 78 year old MALE with the following CHIEF COMPLAINT: annual visit THIS AN ESTABLISHED PATIENT IN THE PRIMARY CARE CLINIC HPI: Maranda has a medical history notable for HTN, HLD, Colon adenomas, ED, BPH w/urinary retention, Essential tremor, Dysphagia Co managed care Co-managed care: Barry: PCP: Dr. Issac Mcnally Ortho: Dr. Aishwarya Salas/Tanvir: Urology, Dr. Esperanza Mathias Today, we reviewed 's health history in detail, outside records (if applicable and available), pertinent chart notes, medications, any need for refills, pertinent test results, and routine HCM. Clearing throat x many years, no associated symptoms Twice a week food stops upper esophagus, hiccoughs, then eventually clears, foods not liquids, no constitutional symptoms (weight loss etc., abd pain, reflux). 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 Symptoms at that time were occurring about once a month. Refill meds CHART REVIEW: 05/02/23: At our establish care visit we reviewed 's medical history, need for medication refills, and routine HCM. See note for details. Plan at that time: RTC one year The following preventive care screening and other chronic disease management records were reviewed: Immunizations: offered any vaccines that are due, see rooming staff note Blood pressure trends (home, clinic): reviewed, normal home BP's per his record x last one month Diet, Exercise: reviewed Labs: See test results section Prostate cancer screening: Test Name Result Units Range --------- ------ ----- ----- PSA 1.36 ng/mL Ref: <=4.00 Colon cancer screening: Colonoscopy:ON A FIVE YEAR SCHEDULE WITH REMINDERS, AT HIS LOCAL HOSPITAL, STATES HAS HAD ONE WITHIN THE LAST FIVE YEARS See nursing note regarding the following screening: Pain, suicide, depression, alcohol use, toxic exposures, fall risk, skin screen, home abuse/violence, nutriton, health education, tobacco use use. Today's nurse's notes were reviewed. Active problems - Computerized Problem List is the source for the followin. Essential hypertension 2. Erectile dysfunction 3. Hyperlipidemia 4. Allergic rhinitis (SNOMED CT [id number]) 5. Tremor 6. Kidney stone 7. Multiple closed fractures of cervical vertebrae - high impact fracture of T12 8. Chronic cough 9. Polyp Colon (SCT 26068870) - 2 adenomas in 2014, 1 in 2018 10. Exposure to potentially hazardous substance 11. Urinary retention due to benign prostatic hypertrophy 12. Dysphagia SURGICAL HISTORY: Appendectomy Left MELODY 12/09/2022 FAMILY [...] MOUTH EVERY DAY FOR BLOOD PRESSURE 2) FINASTERIDE 5MG TAB TAKE ONE TABLET BY MOUTH EVERY ACTIVE DAY FOR PROSTATE 3) HYDROCHLOROTHIAZIDE 12.5MG TAB TAKE ONE TABLET BY ACTIVE MOUTH EVERY DAY FOR BLOOD PRESSURE . TABLET CHANGE. PLEASE TAKE WHOLE TABLET 4) SILDENAFIL CITRATE 50MG TAB TAKE ONE TABLET BY MOUTH ACTIVE EVERY DAY NEEDED FOR ERECTIONS -TAKE 1 HOUR BEFORE ANTICIPATED SEXUAL ACTIVITY 5) SIMVASTATIN 20MG TAB TAKE ONE TABLET BY MOUTH AT ACTIVE BEDTIME FOR CHOLESTEROL 6) TAMSULOSIN HCL 0.4MG CAP TAKE ONE CAPSULE BY MOUTH ACTIVE TWICE A DAY FOR URINARY SYMPTOMS Active Non-VA Medications Status 1) Non-VA CHOLECALCIFEROL TAB 1000 UNIT MOUTH EVERY DAY ACTIVE 2) Non-VA FISH OIL 1000MG (500MG DHA/EPA) CAP 2 GM MOUTH ACTIVE DAILY ALLERGIES: Patient has answered NKA EXAM: PREVIOUS VITAL SIGNS: 03/2024: Home BP's normal range 04/2023: Home BP's 112-125/69-74 per record. Avg 119/72 Blood Pressure: 144/82 (05/03/2023 08:43) recheck 143/80 Weight: 183.3 lb [83.14 kg] (05/03/2023 08:43) BP: 155/93 (04/28/2022 08:01) Weight: WEIGHTS IN [...] signs of agitation TEST RESULTS: Collection time: Mar 07, 2024@07:10 Test Name Result Units Range --------- ------ ----- ----- PSA 1.13 ng/mL Ref: <=4.00 SODIUM 141 mmol/L 136 - 145 POTASSIUM 3.8 mmol/L 3.5 - 5.1 CHLORIDE 106 mmol/L 98 - 107 CO2 27 mmol/L 22 - 29 ANION GAP 8 mmol/L 5 - 15 GLUCOSE 97 mg/dL 70 - 100 UREA NITROGEN 24 mg/dL 8 - 26 CREATININE 1.1 mg/dL 0.7 - 1.2 CALCIUM 9.2 mg/dL 8.4 - 10.2 MAGNESIUM 2.1 mg/dL 1.6 - 2.6 CHOLESTEROL 153 mg/dL Ref: <=199 TRIG(NON FASTING) 210 H mg/dL Ref: <=149 .HDL 39 L mg/dL Ref: >=40 LDL CALCULATION 72 mg/dL Ref: <=99 HEMOGLOBIN A1C 5.4 % 4.0 - 6.0 Collection time: May 03, 2023@08:01 Test Name Result Units Range --------- ------ ----- ----- TSH 2.69 uIU/mL 0.35 - 4.94 BILIRUBIN, TOTAL 0.8 mg/dL 0.2 - 1.2 ALKALINE PHOSPHATASE 79 U/L 40 - 150 AST/SGOT 25 U/L Ref: <=34 ALT/SGPT 19 U/L Ref: <=55 CHOLESTEROL 192 mg/dL Ref: <=199 TRIG(NON FASTING) 358 H mg/dL Ref: <=149 .HDL 41 mg/dL Ref: >=40 LDL CALCULATION 79 mg/dL Ref: <=99 WBC 5.30 K/cmm 4.0 - 11.0 RBC 5.36 M/cmm 4.6 - 6.2 HGB 15.0 g/dL 13.5 - 17.9 HCT 44.9 % 41 - 54 MCV 83.8 fL 80 - 100 MCH 28.0 pg 27 - 33 MCHC 33.4 g/dL 32.0 - 37.5 RDW 12.6 % 11.5 - 14.5 PLT 201 K/cmm 150 - 400 Collection time: Apr 14, 2016@06:30 Test Name Result Units Range --------- ------ ----- ----- ANTI-HEP C(EIA) NEGATIVE Ref: NEGATIVE Patient was informed of available lab, imaging, and other study results associated with today's visit. ASSESSMENT AND PLAN: HTN, HLD, Colon adenomas, ED BPH w/urinary retention Dysphagia Essential tremor Co-managed care. 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 No medication changes are indicated at this time. Medication Reconciliation: Education Evaluations *Was medication education provided for NEW medications or CHANGES to medications? (including medication name, dose, route, reason for use, and potential side effects). No new medications or medication changes during this encounter. TERATOGENIC MED & CONTRACEPTION REVIEW (Optional)... = [...] were also reviewed/updated for accuracy. Allergies/ADR from [employer] may not display in CPRS. Use JLV MRT5 - Allergies/ADRs FACILITY ALLERGY/ADR -------- No Remote Allergy/ADR Data available for this patient [facility] No Known Allergies Active and Recently Outpatient Medications (including Supplies): Issue Date Status Last Fill Active Outpatient Medications Refills Expiration 1) AMLODIPINE BESYLATE 2.5MG TAB Qty: 90 ACTIVE Issu:05-03-23 for 90 days Sig: TAKE ONE TABLET BY Refills: 1 Last:02-03-24 MOUTH EVERY DAY FOR BLOOD PRESSURE Expr:05-03-24 2) FINASTERIDE 5MG TAB Qty: 90 for 90 days ACTIVE Issu:05-03-23 Sig: TAKE ONE TABLET BY MOUTH EVERY Refills: 0 Last:02-03-24 DAY FOR PROSTATE Expr:05-03-24 3) HYDROCHLOROTHIAZIDE 12.5MG TAB Qty: 90 ACTIVE Issu:05-03-23 for 90 days Sig: TAKE ONE TABLET BY Refills: 1 Last:02-03-24 MOUTH EVERY DAY FOR BLOOD PRESSURE . Expr:05-03-24 TABLET CHANGE. PLEASE TAKE WHOLE TABLET 4) SILDENAFIL CITRATE 50MG TAB Qty: 18 for ACTIVE Issu:05-03-23 90 days Sig: TAKE ONE TABLET BY MOUTH Refills: 1 Last:01-24-24 EVERY DAY NEEDED FOR ERECTIONS Expr:05-03-24 -TAKE 1 HOUR BEFORE ANTICIPATED SEXUAL ACTIVITY 5) SIMVASTATIN 20MG TAB Qty: 90 for 90 ACTIVE Issu:05-03-23 days Sig: TAKE ONE TABLET BY MOUTH AT Refills: 0 Last:02-14-24 BEDTIME FOR CHOLESTEROL Expr:05-03-24 6) TAMSULOSIN HCL 0.4MG CAP Qty: 180 for ACTIVE Issu:05-03-23 90 days Sig: TAKE ONE CAPSULE BY Refills: 1 Last:02-03-24 MOUTH TWICE A DAY FOR URINARY SYMPTOMS Expr:05-03-24 Issue Date Status Last Fill Pending Outpatient [...] BY MOUTH TWICE A DAY Refills: 0 Start Date Active Non-VA Medications Refills Expiration 1) Non-VA CHOLECALCIFEROL TAB Si ACTIVE UNIT MOUTH EVERY DAY 2) Non-VA FISH OIL 1000MG (500MG DHA/EPA) ACTIVE CAP Si GM MOUTH DAILY 14 Total Medications Time spent today, including: Reviewing interim [facility] VA- and non-[facility] VA chart notes and test results, Independently obtaining history, Performing a medically appropriate exam and/or evaluation, Documenting clinical information in the progress note, Updating the CPRS problem list, Renewing medications, Entering any non-VA medications in CPRS Independently interpreting results, Communicating results (verbally, in results letter), Counseling and educating patient/surrogate, Coordinating care with other health team members, Entering/signing orders, Completing reminders, Composing after visit summary verbally and in writing Coding the encounter. Total Time: 40 MIN Kim De León MD General Internal Medicine [facility] PACT TETO Vargas /es/ Kim De León MD Physician Signed: 03/07/2024 09:11 KMI DE LEÓN [facility]
--- OUTSIDE RECORDS SUMMARY | 2024-04-24 06:27 | XMS_ITS | Encounter Summary ---
Author Name [facility] [facility] [place] [facility] [facility] [place] Address [address] [place] [address] Care Team Providers Care Structural Engineering Drafting Officer Name Role Phone ELY DE LEÓN Primary [...] Patient's Relationship to Policy Estrada [facility] (WNR) MEDICARE ADVANTAGE MCR ([facility]) Jun 06, 2019 [id number] MARANDA SALAZAR PATIENT [facility] (WNR) MEDICARE ADVANTAGE MCR ([facility]) Nov 04, 2012 [id number] MARANDA SALAZAR PATIENT Selected Encounter This section includes the information on record at [place] for the Encounter. Date/Time Encounter Type Encounter Description Reason Provider Source Apr 05, 2024 08:30 AM ORAL FUNCTION THERAPY SPEECH-LANGUAGE PATHOLOGY ICD-10-CM R13.10 Dysphagia, unspecified JONATAN CRUZ Encounter Template Text not used by VA Assessments - Encounter Diagnoses This section includes the primary and secondary diagnoses documented for the Encounter. Date/Time Primary/Secondary Diagnosis Diagnosis Name Provider Source Apr 05, 2024 09:00 AM PRIMARY Dysphagia, unspecified BRETPDAX [facility] Plan of Treatment: Future Appointments (+ 6 months) and Future Tests (+/- 45 days) The Plan of Treatment section includes future care activities for the patient from all [place] [facility] This section includes future appointments and future orders which are active, pending or scheduled. Future Appointments This section includes appointments that were scheduled to occur 6 months from the date of the Encounter, up to a maximum of 20 appointments. The data comes from all [facility]. Appointment Date/Time Appointment Type Appointme nt Facility Name Jun 19, 2024 02:00 PM AMBULATORY - MEDICINE RODY LOPEZ [facility] Sep 13, 2024 07:45 AM AMBULATORY - SURGERY TEX DUGAN [facility] Active, Pending, and Scheduled Orders This section includes a listing of several types of active, pending, and scheduled orders, including clinic medications orders, diagnostic test orders, procedure orders and consult orders; where the start date of the order is 45 days before the date of the Encounter or 45 days after the date of theEncounter. The data comes from all [facility]. Test Date/Time Test Type Test Details Facility Name Mar 07, 2024 08:52 AM Consult Order GASTROENTE ROLOGY OUTPT Cons Blindstitch Lapel Padder's Choice [facility] Lab Results: +/- 30 days of the encounter This section includes the Chemistry and Hematology Lab Results on record with [place] for the patient. Radiology Reports and Pathology Reports are provided separately, in subsequent sections. Lab Results This section contains the Chemistry/Hematology Results that were resulted 30 days before or 30 daysafter the date of the Encounter. Date/Time Source Result Type Result - Unit Interpretation Reference Range Comment Mar 07, 2024 07:10 AM [facility] HEMOGLOBIN A1C Specimen Type: BLOOD [...] May 03, 2023 09:40 AM Reporting Lab: [facility] [id number] Performing Lab: [facility] [id number] HEMOGLOBIN A1C 5.4 4.0-6.0 Mar 07, 2024 07:10 AM [facility] PSA Specimen Type: SERUM No comment entered. Ordering Provider: ELY DE LEÓN Report Released Date/Time: May 03, 2023 09:40 AM Reporting Lab: [facility] [id number] Performing Lab: [facility] [id number] PSA 1.13 ng/mL <4.00 Mar 07, 2024 07:10 AM [facility] LIPID PANEL,NON-FASTING Specimen Type: PLASMA Comment: Elevated triglyceride result from a non-fasting specimen should be interpreted with caution. A fasting panel is recommended for accurate triglycerides when trigs are >200 from a non-fasting specimen. Ordering Provider: ELY DE LEÓN Report Released Date/Time: May 03, 2023 09:40 AM Reporting Lab: [facility] [id number] Performing Lab: [facility] [id number] CHOLESTEROL 153 mg/dL <199 .HDL 39 mg/dL L >40 LDL CALCULATION 72 mg/dL <99 VLDL CALCULATION 42 mg/dL H <29 NON HDL CHOLESTEROL 114 mg/dL <129 TRIG(NON FASTING) 210 mg/dL H <149 Mar 07, 2024 07:10 AM [facility] BASIC METABOLIC PANEL+MG Specimen Type: PLASMA Comment: Elevated triglyceride result from a non-fasting specimen should be interpreted with caution. A fasting panel is recommended for accurate triglycerides when trigs are >200 from a non-fasting specimen. Ordering Provider: ELY DE LEÓN Report Released Date/Time: May 03, 2023 09:40 AM Reporting Lab: [facility] [phone] Performing Lab: [facility] [phone] CREATININE 1.1 mg/dL 0.7-1.2 UREA NITROGEN 24 [...] and tobacco- related health factors from the [place] facility where the Encounter took place. Current Smoking Status This section includes the most current smoking, or tobacco-related health factor, from the [place] facility where the Encounter took place. Date/Time Current Smoking Status Comment Chelsey ity Mar 07, 2024 08:30 AM VA-TOBACCO NEVER USED [facility] Tobacco Use History This section includes a history of the smoking, or tobacco-related health factors, that were collected on or before the date of the Encounter. The data comes from the [place] facility where the Encounter took place. Date/Time Smoking Status/Tobacco Use Comment F acility May 03, 2023 09:00 AM VA-TOBACCO NEVER USED [facility] Apr 28, 2022 08:00 AM VA-TOBACCO NEVER USED [facility] Apr 02, 2021 02:18 PM VA-TOBACCO NEVER USED [facility] Mar 26, 2019 10:38 AM VA-TOBACCO NEVER USED [facility] Mar 21, 2018 10:23 AM VA-TOBACCO NEVER USED [facility] Apr 05, 2017 09:18 AM LIFETIME NON-TOBACCO USER [facility] Apr 14, 2016 08:06 AM LIFETIME NON-TOBACCO USER [facility] Mar 27, 2015 09:52 AM LIFETIME NON-TOBACCO USER [facility] Feb 20, 2014 07:48 AM LIFETIME NON-TOBACCO USER [facility] Jun 29, 2007 08:10 AM LIFETIME NON-TOBACCO USER [facility] Advance Directives: All historical and current Section Date Range: From patient's date of to the date document was created. This section includes ALL of a patient's completed or amended [place] Advance and Rescinded Directives. The entries below indicate that a directive exists for the patient, but an actual copy is not included with this document. The data comes from all [place] facilities. Date Advance Directives Provider Source Aug 02, 2016 ADVANCE DIRECTIVE LANDY HESS [facility] Aug 02, 2016 ADVANCE DIRECTIVE DISCUSSION THAI HESS [facility] May 25, 2005 [facility] Radiology Reports: +/- 30 days of [...] the Encounter. The data comes from all [place] treatment facilities. Date/Time Radiology Report Provider Source Apr 05, 2024 07:54 AM ESOPHAGRAM VIDEO S WALLCORRINE: MARANDA SALAZAR [id number] -[id number] M Exm Date: APR 05, 2024@07:54 Req Phys: ELY DE LEÓN Pat Loc: [facility] PACT TETO 4F (Req'g Loc Img Loc: MAIN X-RAY Service: Unknown (Case [id number] COMPLETE) ESOPHAGRAM VIDEO SWALLOW (RAD Detailed) CPT:55027 Contrast Media : Barium CPT Modifiers : TC TECHNICAL COMPONENT Reason for Study: dysphagia to solids Clinical History: IS NOT under investigation for COVID-19 or is COVID-19 negative progressive dysphagia to solids Responsible provider name and phone number to notify for critical findings if other than user placing the order and pager listed below: User placing orders pager: [phone] LAST CREATININE 1.1 (03/07/24) Report Status: Electronically [...] of findings. VERIFIED BY: / *ELECTRONICALLY FILED* [facility] Encounter Notes: All associated encounter notes This section contains the clinical notes associated to the Encounter. Date/Time Encounter Note(s) Provider Source Apr 05, 2024 08:59 AM SPEECH PATHOLOGY C ONSULT: LOCAL TITLE: SPEECH PATHOLOGY CONSULT STANDARD TITLE: SPEECH PATHOLOGY CONSULT DATE OF NOTE: APR 05, 2024@08:59 ENTRY DATE: APR 05, 2024@08:59:45 AUTHOR: DAX DONOVAN COSIGNER: JONATAN CRUZ URGENCY: STATUS: COMPLETED SPEECH PATHOLOGY CONSULT Has ADDENDA Speech-Language Pathology, Outpatient MBSS Medical Diagnosis: DYSPHAGIA Therapy Diagnosis: DYSPHAGIA NAME USED: Brandon IMPRESSIONS Patient has the following historical and clinical PNA risk factors (Earl et al., 1998) and dysphagia risk factors (Ceasar and Jon, 2021): - # of medications (10 or more) - # of medical diagnoses Patient has the following protective factors: - Alert, awake, oriented - Patient is ambulatory - Patient can be seated upright - Outpatient status Mr. Salazar is a 78 YOM with a PMHx significant for: allergic rhinitis, chronic cough, and dysphagia. He presents with normal oropharyngeal swallow (DIGEST 0: S0E0) that is unchanged from previous MBSS in 2021 in the presence of physiological deficits identified on MBSS including: initiation of the pharyngeal swallow at the level of the pyriforms, incomplete laryngeal elevation, incomplete anterior hyoid excursion, partial distention of the PES, and esophageal retention with retrograde flow. Deficits yielded shallow penetration with ejection on 1/7 thin liquid trials which is a normal swallowing variant. No aspiration and no significant pharyngeal residue observed. Collection of oral residue across consistencies. Patient intermittently initiates a second swallow to clear oral residue with solid trials. Given no observation of aspiration or significant pharyngeal residue, recommend patient consumes a regular diet with thin liquids. Patient should fit fully upright for all eating and drinking. Patient endorsed chronic throat clearing that he believes is caused by mucous and inquired about strategies to alleviate sensation. Of note, patient observed to intermittently clear his throat during conversation. PRIZE COORDINATOR educated patient on increasing hydration and completing a hard swallow when he feels the urge to clear his throat. PRIZE COORDINATOR encouraged patient to discuss throat clearing with his MD. Given patient's reported symptoms of sensation of solids sticking in chest, recommend patient participates in scheduled GI endoscopy on 06/19/2023 at the [facility] as [facility] does not evaluate for distal sticking. No further PRIZE COORDINATOR f/u required. Please re-consult PRIZE COORDINATOR if status changes or if patient requires a re- evaluation. Recommendations: 1. Diet: - Solids: Regular. - Liquids: Thin. 2. Aspiration precautions for this patient: - Sit fully upright for all eating and drinking 3. Oral hygiene: Dedicated Oral Hygiene 2-3x daily: * Patient is able to perform self-care (or needs minimal assistance) and is able to expectorate o Equipment: Toothbrush, plaque-removing toothpaste, alcohol-free antiseptic oral rinse, mouth moisturizer & swabs to apply it, floss picks o Procedure: Use floss pick (at least 1x/day); then brush teeth with toothbrush and toothpaste for 2 minutes; swish with mouthwash and spit oral rinse; if desired, moisturize interior of oral cavity & lips using swab. 4. Recommend patient participates in scheduled GI endoscopy on 06/19/2023 at the [facility]. 5. Patient to discuss chronic throat clearing with MD. Plan of care: -No PRIZE COORDINATOR f/u required. Please re-consult PRIZE COORDINATOR if status changes or if patient requires a re-evaluation. -Recommend patient participates in scheduled GI endoscopy on 06/19/2023 at the [facility] as [facility] does not evaluate for distal sticking. Goals: ------ director long term care goals: 1) Tolerate least restrictive diet without adverse respiratory events. HISTORY Mr. Salazar is a 78 YOM with a PMHx significant for: allergic rhinitis, multiple closed factures of cervical vertebrae, chronic cough, exposure to potentially hazardous substances, HLD, HTN, tremor, and dysphagia. PRIZE COORDINATOR consulted on 03/07/[address] De León for an instrumental dysphagia evaluation in the context of: progressive dysphagia to solids. Patient is familiar to [facility] and participated in an MBSS on 06/09/2021 that indicated: functional oropharyngeal swallow with recommendations for regular textures with thin liquids. PRIZE COORDINATOR recommended GI referral. Active problems - Computerized Problem List is the source for the followin. Essential hypertension 2. Erectile dysfunction 3. Hyperlipidemia 4. Allergic rhinitis (SNOMED CT 15574646) 5. Tremor 6. Kidney stone 7. Multiple closed fractures of cervical vertebrae - high impact fracture of T12 8. Chronic cough 9. 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 Exposure to potentially hazardous substance 11. Urinary retention due to benign prostatic hypertrophy 12. Dysphagia SUBJECTIVE Patient arrived on time to evaluation. He was pleasant and participatory. Patient recalled previous MBSS evaluation results noting that everything was good. He noted that approximately 1x/week he has the sensation that solid foods are stuck in his chest, indicating near his sternum. Patient endorsed this sensation when eating pasta and rice and noted that hiccupping helps alleviate the sensation after approximately 10 minutes. Patient endorsed chronic cough and throat clearing that is worse in the AM and that he feels is caused by mucous. He denied pain with swallowing, unintentional weight loss, or a history of pneumonia. Patient endorsed symptoms of GERD; however, noted that he was tired of taking his GERD medications. OBJECTIVE Patient Status: Vision: Adequate for evaluation Hearing: Adequate for evaluation Sitting balance: Adequate for evaluation Head and neck control: Adequate for evaluation Oxygen therapy: Room air Dentition: Adequate Oral cavity: Clean Communication: -Follows complex (3-step) commands. -Expresses self adequately. MODIFIED BARIUM SWALLOW IMPAIRMENT PROFILE Oral Phase: 0 Component 1, Lip Closure: No labial escape 0 Component 2, Tongue control during bolus hold: Cohesive bolus between tongue to palatal seal 0 Component 3, Bolus Preparation/Mastication: Timely and efficient chewing and mashing 0 Component 4, Bolus Transport/Lingual motion: Brisk tongue motion 2 Component 5, Oral Residue: Residue collection on oral structures Location: 3 Component 6, Initiation of pharyngeal Swallow (First hyoid excursion): Bolus head in pyriforms ORAL TOTAL: 5 Pharyngeal Stage: 0 Component 7, Soft Palate Elevation: No bolus between soft palate and pharyngeal wall 1 Component 8, Laryngeal Elevation: Partial superior movement of thyroid cartilage/partial approximation of arytenoids to epiglottic petiole 1 Component 9, Anterior Hyoid movement: Partial anterior movement 0 Component 10, Epiglottic movement: Complete inversion 0 Component 11, Laryngeal vestibular closure at the height of swallow: Complete; no air/contrast in laryngeal vestibule 0 Component 12, Pharyngeal Stripping wave: Present and complete 0 Component 13, Pharyngeal Contraction (A-P view only): Complete 1 Component 14, Pharyngoesophageal Segment Opening: Partial distention/partial duration; partial obstruction of flow 0 Component 15, Tongue Base retraction: No contrast between tongue base and posterior pharyngeal wall 1 Component 16, Pharyngeal Residue: Trace residue within or on pharyngeal structures Location: tongue base, pyriforms PHARYNGEAL TOTAL: 4 Esophageal Stage: 2 Component 17, Esophageal Clearance (upright position): Esophageal retention with retrograde flow below pharyngoesophageal segment (PES) ESOPHAGEAL TOTAL: 2 MBSIMP TOTAL: 11 On the 8-item Penetration-Aspiration Scale, patient scored 1: Contrast does not enter the airway 2: Contrast enters the airway, remains above vocal folds, no residue 3: Contrast remains above vocal folds, visible residue remains 4: Contrast contacts vocal folds, no residue 5: Contrast contacts vocal folds, visual residue remains 6: Contrast passes glottis, no sub-glottic residue visible 7: Contrast passes glottis, visible sub-glottic residue despite pt response 8: Contrast passes glottis, visible sub-glottic residue, absent pt response Lateral view: 3cc thin: PAS: 1 3cc thin: PAS: 1 Cup thin: PAS: 1 Cup thin: PAS: 2 Straw thin: PAS: 2 Consec thin: PAS: 1-2-3-3-2 Puree: PAS: 1 Puree: PAS: 1 Cracker: PAS: 1 Cracker: PAS: 1 Cup thin: PAS: 2 AP view: Cup thin: PAS: 1 Puree: PAS: 1 - Phonation: WFL - Bolus flow: Bilaterally symmetrical Education: Patient seen immediately following exam for 25 minutes to provide the following education/training: - Basic swallowing anatomy/physiology - Results of MBSS with use of diagram - Written summary of diet recommendations and aspiration precautions - Plan of care - Throat clearing: increasing hydration and hard swallow PATIENT REPORTED OUTCOMES (PROMs) EATING ASSESSMENT TOOL (EAT-10) 0 = No problem 4 = Severe problem A score of 3 or greater is considered problematic. (Digna, 2008). To what extent are the following scenarios problematic for you? Date: Mar 0 1. My swallowing problem has caused me to lose weight. 1 2. My swallowing problem interferes with my ability to go out for meals. 0 3. Swallowing liquids takes extra effort. 0 4. Swallowing solids takes extra effort. 0 5. Swallowing pills takes extra effort. 0 6. Swallowing is painful. 2 7. The pleasure of eating is affected by my swallowing. 1 8. When I swallow food sticks in my throat. 0 9. I cough when I eat. 0 10.Swallowing is stressful. Total: 4 Reflux Symptom Inventory (RSI) -- (Lydiafasky et al., 2002) Within the last month, how did the following problem affect you? {0 = no problem; 5 = severe problem} 0 1. Hoarseness or a problem with your voice. 4 2. Clearing your throat. 3 3. Excess throat mucous or postnasal drip. 1 4. Difficulty swallowing food, liquids, or pills. 1 5. Coughing after you ate or after lying down. 0 6. Breathing difficulties or choking episodes. 2 7. Troublesome or annoying cough. 4 8. Sensations of something sticking in your throat or a lump in your throat. 0 9. Heartburn, chest pain, indigestion, or stomach acid coming up. TOTAL: 15 Normative data suggests that a RSI of greater than or equal to 13 is clinically significant. Therefore a RSI > 13 may be indicative of significant reflux disease. CLINICIAN RATING SCALES DIGEST: The Dynamic Imaging Grade of Swallowing Toxicity (DIGEST) (Murtaza et al., 2017) is a functional outcome measure. A summary DIGEST rating provides a grade of pharyngeal swallowing dysfunction as derived from an instrumental swallowing study. The grade is based on component scores of swallowing safety (i.e., penetration/aspiration) and efficiency (i.e., residue); these scores increase with worsening severity of pharyngeal dysphagia (0=no pharyngeal dysphagia, 1 = mild, 2 = moderate, 3 = severe, and 4 = life threatening). Safety score: 0 Efficiency score: 0 DIGEST score: 0 FUNCTIONAL ORAL INTAKE SCALE (FOIS): The FOIS is a measure of swallow function that identifies a patient's current method and/or modifications for intake of daily nutrition. Tube Dependent (Levels 1-3) -No oral intake (1) -Tube dependent with minimal/inconsistent oral intake (2) -Tube supplements with consistent oral intake (3) Total Oral Intake (Levels 4-7) -Total oral intake of a single consistency (4) -Total oral intake of multiple consistencies requiring special preparation (5) -Total oral intake with no special preparation, but must avoid specific foods or liquid items (6) -Total oral intake with no restrictions (7) Patient score: 7 ----- Barriers to this session include: ----- - No barriers to this session /puma/ DAX DONOVAN SPEECH PATHOLOGY CLINICAL FELLOW Signed: 04/06/2024 08:53 /puma/ JONATAN CRUZ M.S., CCC-PRIZE COORDINATOR, [facility] SPEECH-LANGUAGE PATHOLOGIST Cosigned: 04/08/2024 13:37 04/08/2024 ADDENDUM STATUS: COMPLETED Direct supervision Agree with excellent CF note with comments below. Nature of encounter: MBSS + swallow therapy. Clinical thinking, assessment and treatment plan: Agree with recommendations and POC as outlined by the clinical fellow. /puma/ JONATAN CRUZ M.S., CCC-PRIZE COORDINATOR, [facility] SPEECH-LANGUAGE PATHOLOGIST Signed: 04/08/2024 13:38 DAX DONOVAN [facility]
--- NOTE | 2024-04-24 07:55 | W.ANESCHARGE ---
Anesthesia Charges Start Date/Time Anesthesia Start Date: 04/24/24 Anesthesia Start Time: 07:25 Stop Date/Time Anesthesia Stop Date: 04/24/24 Anesthesia Stop Time: 07:51 Summary Extremes of Age - Over 70 or under 1: TECHNOLOGY RESOURCE TEACHER
--- NOTE | 2024-04-24 09:26 | W.ANESCHARGE ---
Anesthesia Charges Start Date/Time Anesthesia Start Date: 04/24/24 Anesthesia Start Time: 07:25 Stop Date/Time Anesthesia Stop Date: 04/24/24 Anesthesia Stop Time: 07:51 Summary Extremes of Age - Over 70 or under 1: MDA
== END 2024-04-24 06:25 | disposition home or self-care (01) ==
LOC: OP CLINIC 06:24
PROVIDERS: PCP Family Medicine; Visit Provider Surgery
DX: R13.10 Dysphagia, unspecified (principal); Q40.2 Other specified congenital malformations of stomach; K44.9 Diaphragmatic hernia without obstruction or gangrene
CPT/HCPCS: 00731; 43239; 88305; 99100; J2704

== ENCOUNTER 2024-07-17 09:24 | Outpatient (CLI) | payer MEDICARE, SELFPAY ==
[2024-07-17 14:12] LABS: PCR FLU A POSITIVE PCR FLU A (Negative); PCR FLU B Negative PCR FLU B (Negative); SARS PCR* Negative SARS-CoV-2 (Negative)
== END 2024-07-17 09:25 | disposition home or self-care (01) ==
PROVIDERS: PCP Family Medicine; Visit Provider Family Medicine
DX: R05.9 Cough, unspecified (principal)
CPT/HCPCS: 87631

== ENCOUNTER 2024-08-20 07:07 | Outpatient (CLI) | payer MEDICARE, SELFPAY ==
--- NOTE | 2024-08-20 07:56 | P.ANES_ITS ---
Anesthesia Charges Start Date/Time Anesthesia Start Date: 08/20/24 Anesthesia Start Time: 07:41 Stop Date/Time Anesthesia Stop Date: 08/20/24 Anesthesia Stop Time: 07:54 Summary Extremes of Age - Over 70 or under 1: FHA UNDERWRITER Coding CPT Codes CPT Codes: ANES UPR GI NDSC PX NOS - 68121 ([id number]) P2 - PATIENT W/MILD SYST DISEASE, QX - FHA UNDERWRITER SVC W/ MD MED DIRECTION, QK - CLINICAL RESEARCHER 2-4 CNCRNT ANES PROC Additional Codes: Summary - Extremes of Age - Over 70 or under 1: FHA UNDERWRITER ([id number])
--- NOTE | 2024-08-20 07:56 | W.ANESCHARGE ---
Anesthesia Charges Start Date/Time Anesthesia Start Date: 08/20/24 Anesthesia Start Time: 07:41 Stop Date/Time Anesthesia Stop Date: 08/20/24 Anesthesia Stop Time: 07:54 Summary Extremes of Age - Over 70 or under 1: GLOBAL CONSUMER SECTOR VICE PRESIDENT Coding CPT Codes CPT Codes: ANES UPR GI NDSC PX NOS - 51098 ([id number]) P2 - PATIENT W/MILD SYST DISEASE, QX - GLOBAL CONSUMER SECTOR VICE PRESIDENT SVC W/ MD MED DIRECTION, QK - PRECISION PRINTING WORKER 2-4 CNCRNT ANES PROC Additional Codes: Summary - Extremes of Age - Over 70 or under 1: GLOBAL CONSUMER SECTOR VICE PRESIDENT ([id number])
--- NOTE | 2024-08-20 09:27 | P.ANES_ITS ---
Anesthesia Charges Start Date/Time Anesthesia Start Date: 08/20/24 Anesthesia Start Time: 07:41 Stop Date/Time Anesthesia Stop Date: 08/20/24 Anesthesia Stop Time: 07:54 Summary Extremes of Age - Over 70 or under 1: MDA Coding CPT Codes CPT Codes: ANES UPR GI NDSC PX NOS - 72245 ([id number]) QK - RISK CONTROL FIELD REPRESENTATIVE 2-4 CNCRNT ANES PROC, QX - RESEARCH WORKER ENCYCLOPEDIA SVC W/ MD MED DIRECTION, P2 - PATIENT W/MILD SYST DISEASE Additional Codes: Summary - Extremes of Age - Over 70 or under 1: MDA ([id number])
== END 2024-08-20 07:08 | disposition home or self-care (01) ==
LOC: OP CLINIC 07:07
PROVIDERS: PCP Family Medicine; Visit Provider Surgery
DX: K20.0 Eosinophilic esophagitis (principal); K31.7 Polyp of stomach and duodenum; K44.9 Diaphragmatic hernia without obstruction or gangrene
CPT/HCPCS: 00731; 43239; 99100; J2704

== ENCOUNTER 2025-01-21 14:38 | Outpatient (CLI) | payer MEDICARE, SELFPAY | END 2025-01-21 14:39 | disposition home or self-care (01) | LOC: FBOREF 14:39 | PROVIDERS: PCP Family Medicine; Visit Provider Family Medicine | DX: I10 Essential (primary) hypertension (principal) | CPT/HCPCS: 80048 ==